=== PATIENT | female | born 1930 | race Caucasian/White ===

== ENCOUNTER 2016-09-09 16:27 | Inpatient (IN) | payer OTHER ==
[~2016-09-09] VITALS: Ht 152.4 cm; Wt 57.9 kg
[~2016-09-09 16:27] MED LIST: FISH OIL PO; GLUC100015 PO; OMEP40CA6 PO; VITAMINS PO
[2016-09-09 16:37] VITALS: BP 126/56; PULSE 64; RESP 16
[2016-09-09 16:56] VITALS: Ht 152.4 cm; Wt 57.9 kg
[2016-09-09] MEDS ORDERED: METOCLOPRAMIDE 10 MG INJ IV PRN (19:00)
[2016-09-09] MEDS ORDERED: BISACODYL 10 MG SUPP PR PRN (19:00)
[2016-09-09] MEDS ORDERED: MAGNESIUM HYDROXIDE 30ML CUP PO PRN (19:00)
[2016-09-09] MEDS ORDERED: LACTULOSE 30ML CUP PO PRN (19:00)
[2016-09-09] MEDS ORDERED: ONDANSETRON 4 MG INJ IV PRN (20:00)
[2016-09-09] MEDS ORDERED: traMADol 50 MG TAB PO PRN (20:00)
[2016-09-09] MEDS ORDERED: ACETAMINOPHEN 500 MG TAB PO PRN (20:00)
[2016-09-09] MEDS ORDERED: CARBOXYMETHYLCELLULOSE 0.5% 0.1 ML OPH BOTH EYES PRN (20:00)
[2016-09-09] MEDS ORDERED: NALOXONE (0.4 MG/ML) INJ IV PRN (20:00)
[2016-09-09] MEDS ORDERED: HYDROCODONE/APAP (10/325) TAB PO PRN ×2 (20:00)
[2016-09-09 20:03] VITALS: BP 115/59; RESP 18
[2016-09-09] MEDS ORDERED: GLUCOSE GEL 15 GRAM TUBE PO PRN ×2 (20:30)
[2016-09-09] MEDS ORDERED: GLUCOSE GEL 15 GRAM TUBE BUCCAL PRN (20:30)
[2016-09-09] MEDS ORDERED: DEXTROSE 50% 50 ML SYRINGE IV PRN ×2 (20:30)
[2016-09-09] MEDS ORDERED: GLUCAGON 1 MG INJ IM PRN (20:30)
[2016-09-09] MEDS: SENNA TAB PO SCH (21:00)
[2016-09-09] MEDS: Insulin NOVOLOG SS MODERATE Algorithm (SS with meals and bedtime) SC SCH (21:00)
[2016-09-09] MEDS: DEXAMETHASONE 2 MG TAB PO SCH (21:06)
[2016-09-09] MEDS: DOCUSATE SODIUM 100 MG CAP PO SCH (21:06)
[2016-09-09] MEDS: FERROUS SULFATE (EC) 325 MG TAB PO SCH (21:07)
[2016-09-09 21:29] LABS: ADD UMIC YES; UR ASCORBIC ACID NEGATIVE (NEGATIVE); UR BACTERIA FEW /HPF (NONE SEEN); UR BILIRUBIN (Dip) NEGATIVE (NEGATIVE); UR BLOOD (Dip) 1+ mg/dL (NEGATIVE); UR CLARITY CLEAR (CLEAR); UR COLOR STRAW (YELLOW); UR GLUCOSE (Dip) NEGATIVE (NEGATIVE); UR KETONES (Dip) NEGATIVE (NEGATIVE); UR LEUKOCYTE ESTERASE (Dip) NEGATIVE Leu/ul (NEGATIVE); UR NITRITE (Dip) NEGATIVE (NEGATIVE); UR RBC 0 /HPF (0-5); UR SPECIFIC GRAVITY (Dip) 1.004 (1.003-1.030); UR TOTAL PROTEIN (Dip) NEGATIVE (NEGATIVE); UR UROBILINOGEN (Dip) NEGATIVE (NEGATIVE)
[2016-09-10] MEDS: PANTOPRAZOLE (EC) 40 MG TAB PO SCH (05:40)
[2016-09-10 07:29] LABS: ADD SCAN DIFF NO
[2016-09-10 07:32] LABS: BASOPHILS % 0.1 % (0.0-2.0); EOSINOPHILS # 0.1 10^3/ul (0.0-0.5); EOSINOPHILS % 0.5 % (0.0-7.0); HEMATOCRIT 38.2 % (37.0-47.0); HEMOGLOBIN 12.5 g/dl (12.0-16.0); LYMPHOCYTES # 3.8 10^3/ul (0.8-2.9); LYMPHOCYTES % 25.9 % (15.0-51.0); MEAN CORPUSCULAR HEMOGLOBIN 28.8 pg (29.0-33.0); MEAN CORPUSCULAR HGB CONC 32.7 g/dl (32.0-37.0); MEAN PLATELET VOLUME 10.9 fl (7.4-10.4); MONOCYTE # 1.1 10^3/ul (0.3-0.9); MONOCYTES % 7.5 % (0.0-11.0); NEUTROPHIL # 9.4 10^3/ul (1.6-7.5); NEUTROPHILS % 63.9 % (39.0-77.0); PLATELET COUNT 309 10^3/UL (140-415); RED BLOOD COUNT 4.34 10^6/ul (4.20-5.40); RED CELL DISTRIBUTION WIDTH 15.3 % (11.5-14.5); WHITE BLOOD COUNT 14.6 10^3/ul (4.8-10.8)
[2016-09-10] MEDS: Insulin NOVOLOG SS MODERATE Algorithm (SS with meals and bedtime) SC SCH ×4 (07:35→20:58)
[2016-09-10 07:49] LABS: ALBUMIN 3.9 g/dl (3.3-4.9); ALBUMIN/GLOBULIN RATIO 1.44; BILIRUBIN,INDIRECT 0.3 mg/dl (0-1.1); BILIRUBIN,TOTAL 0.3 mg/dl (0.2-1.3); CALCIUM 8.7 mg/dl (8.4-10.2); CREATININE 0.82 mg/dl (0.44-1.00); POTASSIUM 4.3 mmol/L (3.5-5.1); TOTAL PROTEIN 6.6 g/dl (6.1-8.1)
[2016-09-10] MEDS: MULTIVITAMINS THERAPEUTIC TAB PO SCH (08:12)
[2016-09-10] MEDS: DEXAMETHASONE 2 MG TAB PO SCH ×2 (08:12→17:30)
[2016-09-10] MEDS: DOCUSATE SODIUM 100 MG CAP PO SCH ×2 (08:12→20:50)
[2016-09-10] MEDS: FERROUS SULFATE (EC) 325 MG TAB PO SCH ×3 (08:12→20:50)
--- NOTE | 2016-09-10 12:20 | CONS ---
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 Hyperlipidemia 2. Diabetes Mellitus 3. Left knee DJD 4. Impairments in self-care, mobility and mild cognition. PLAN: The patient has been admitted for comprehensive interdisciplinary acute rehab and is anticipated to tolerate 3 hours of daily therapy in divided doses for at least 5/7 days a week. The treatment plan will include: 1. Physical therapy to focus on bed mobility, transfers, and household ambulation with the goal of having the patient reach a standby assist at the wheelchair level, minimal assist for ambulation. 2. Occupational therapy to focus on hygiene, grooming, dressing, bathing, and toileting activities with the goal of having the patient reach a standby assist level at the wheelchair level. 3. Speech therapy for full cognitive assessment and retraining with the goal of having the patient return to baseline cognition. 4. Rehabilitation nursing for carryover of therapeutic interventions, the goal of continent of bowel and bladder, the goal of pain adequately managed on oral medications. ESTIMATED LENGTH OF STAY: 14 days. DISPOSITION GOAL: Home. Rehabilitation Barrier: Weakness Intervention for barrier: Interdisciplinary rehab care I acknowledge that I performed a full physical examination on this patient within 24 hours of admission to the rehabilitation unit and believe the patient is a good candidate for comprehensive interdisciplinary rehab care and is anticipated to make reasonable goals in a reasonable period of time as outlined above. Consultation Date/Type/Reason Admit Date/Time Sep 09, 2016 at 16:27 Reason for Consultation rehabilitation Post Admission Physician Evaluation Hx of Present Illness Patient is a pleasant 86-year-old right-handed feet with been noting right- sided weakness and worsening self-care and mobility. She presented to the emergency room where an MRI of the brain did reveal a 3.9 cm left frontal mass consistent with a meningioma. Patient was evaluated by neurosurgery and did undergo a craniotomy with mass excision. Patient's postoperative course was notable for mechanical ventilator support. Patient was successfully weaned. She noted to have significant impairments in self-care mobility as compared to baseline and has been cleared to transfer to the rehabilitation unit for comprehensive ointerdisciplinary rehab care. Constitutional: No chills, No diaphoresis, No disoriented, No febrile, No improved, No no complaints, No other, No poor po, No requiring IVF, No requiring O2 Eyes: other (Left eye blind) ENT: No bleeding, No congestion, No discharge, No dysphagia, No no complaints, No other, No pain, No sore throat Respiratory: No cough, No no complaints, No other, No pain, No pleuritic pain, No shortness of breath, No sputum, No wheezing Cardiovascular: No chest pain, No edema, No lightheadedness, No no complaints, No orthopenea, No other, No palpitations, No paroxysmal nocturnal dyspnea Gastrointestinal: No blood, No constipation, No decreased appetite, No diarrhea , No flatus, No nausea, No no complaints, No other, No pain, No passing stool, No vomiting Genitourinary: No bleeding, No discharge, No dysuria, No flank pain, No hematuria, No no complaints, No other Skin: No bruising, No erythema, No laceration, No no complaints, No other, No pruritis, No rash, No skin lesions Endocrine: other (elevated blood sugars) Lymphatic: No adenopathy, No lymphadema, No no complaints, No other, No tender nodes Psychological: No anxiety, No confusion, No depression, No nl mood/affect, No no complaints, No other, No suicidal Past Medical History Functional History: Prior to admission patient was independent in self care and mobility Current Functional Status: Patient requires max assist for self care and mobility I have reviewed the preadmission screen , and patient's functional status is consistent with the preadmission screen. Medical History: diabetes, high cholesterol, other (cataract; Left knee DJD) Past Surgical History Past Surgical Hx: other (cataract surgery) Social History Smoking Status: Never smoker Other Social History Patient has good family support Exam/Review of Systems Vital Signs Vitals Vital Signs Date Time Temp Pulse Resp B/P Pulse Ox O2 Delivery O2 Flow Rate FiO2 09/09/16 20:03 98.7 64 18 115/59 93 09/09/16 16:37 Room Air Intake and Output 09/09/16 09/09/16 09/10/16 14:59 22:59 06:59 Intake Total 600 ml 750 ml Balance 600 ml 750 ml Exam Constitutional: alert, oriented Psych: confusion Head: other (Patient with notable craniotomy scar clean dry and intact) Eyes: No EOMI, No PERRL, No fundi, disc, No icteric, No nl conjunctiva, No nl lids, No nl sclera, No other ENMT: No intubated, No mucosa pink and moist, No nl external ears & nose, No nl lips & teeth, No nl nasal mucosa & septum, No other, No tympanic membranes Neck: No bruits, No jvd, No masses, No non-tender, No nuchal rigidity, No other , No supple, No thyromegaly Respiratory: No clear to auscultation, No congested cough, No crackles/rales, No diminished breath sounds, No intercostal retraction, No labored breathing, No normal air movement, No other, No respirations, No tactile fremitus, No wheezing Cardiovascular: No S3, No S4, No bruits, No diastolic murmur, No edema, No gallop, No irregular rhythm, No jugular venous distention (JVD), No murmurs/ extra sounds, No nl pulses, No other, No regular rate and rhythm, No rub, No systolic murmur Gastrointestinal: No ascites, No bowel sounds, No distended, No firm, No hepatomegaly, No mass, No nl liver, spleen, No non-tender, No other, No rebound or guarding, No soft, No splenomegaly, No surgical scars, No tender Genitourinary - Female: No CMT, No CVA tenderness, No nl adnexae, No nl external genitalia, No other, No uterus Extremities: No calf tenderness, No clubbing, No cyanosis, No edema, No normal pulses, No other, No palpable cord, No pitting pedal edema, No tenderness Neurological: other (Patient awake and alert and oriented to person and hospital she will follow simple one-step commands, she demonstrates good strength in the left upper and lower, antigravity strength in the right upper and lower) Skin: No diaphoresis, No ecchymosis, No laceration, No nl turgor, No other, No puncture, No rash or lesions Results Result Diagram: 09/10/16 0615 09/10/16 0615 Results 24 hrs Laboratory Tests Test 09/09/16 18:15 09/09/16 21:04 09/10/16 06:15 09/10/16 07:59 Urine Color STRAW Urine Clarity CLEAR Urine pH 7.0 Urine Specific [place] 1.004 Urine Ketones NEGATIVE Urine Nitrite NEGATIVE Urine Bilirubin NEGATIVE Urine Urobilinogen NEGATIVE Urine Leukocyte Esterase NEGATIVE Urine Microscopic RBC 0 Urine Microscopic WBC 1 Urine Bacteria FEW A Urine Hemoglobin 1+ H Urine Glucose NEGATIVE Urine Total Protein NEGATIVE Bedside Glucose 155 99 White Blood Count 14.6 H Red Blood Count 4.34 Hemoglobin 12.5 Hematocrit 38.2 Mean Corpuscular Volume 88.0 Mean Corpuscular Hemoglobin 28.8 L Mean Corpuscular Hemoglobin Concent 32.7 Red Cell Distribution Width 15.3 H Platelet Count 309 Mean Platelet Volume 10.9 H Neutrophils % 63.9 Lymphocytes % 25.9 Monocytes % 7.5 Eosinophils % 0.5 Basophils % 0.1 Nucleated Red Blood Cells % 0.0 Neutrophils # 9.4 H Lymphocytes # 3.8 H Monocytes # 1.1 H Eosinophils # 0.1 Basophils # 0.0 Nucleated Red Blood Cells # 0.0 Sodium Level 137 Potassium Level 4.3 Chloride Level 101 Carbon Dioxide Level 31 Anion Gap 9 Blood Urea Nitrogen 21 H Creatinine 0.82 Glucose Level 111 Calcium Level 8.7 Total Bilirubin 0.3 Direct Bilirubin 0.00 Indirect Bilirubin 0.3 Aspartate Amino Transf (AST/SGOT) 39 Alanine Aminotransferase (ALT/SGPT) 74 H Alkaline Phosphatase 76 Total Protein 6.6 Albumin 3.9 Globulin 2.70 Albumin/Globulin Ratio 1.44 Medications Medications Current Medications Docusate Sodium (Colace) 100 mg BID PO Last administered on 09/10/16t 08:12; Admin Dose 100 MG; Start 09/09/16 at 21:00 Senna (Senokot) 1 tab HS PO ; Start 09/09/16 at 21:00 Acetaminophen (Tylenol Tab) 650 mg Q4H PRN PO PRN; Start 09/09/16 at 19:00 Bisacodyl (Dulcolax Supp) 10 mg DAILY PRN [place] CONSTIPATION; Start 09/09/16 at 19: 00 Magnesium Hydroxide (Milk Of Mag) 30 ml BID PRN PO CONSTIPATION; Start 09/09/16 at 19:00 Lactulose (Enulose) 20 gm DAILY PRN PO CONSTIPATION; Start 09/09/16 at 19:00 Metoclopramide HCl (Reglan) 10 mg Q6H PRN IV NAUSEA; Start 09/09/16 at 19:00 Multivitamins Therapeutic (Theragran) 1 tab DAILY PO Last administered on 08:12; Admin Dose 1 TAB; Start 09/10/16 at 09:00 Naloxone HCl (Narcan) 0.2 mg PRN PRN IV DECREASED REPIRATORY RATE; Start at 20:00 Eye Lubricant (Refresh Plus) 1 drop TID PRN BOTH EYES DRY EYES; Start 09/09/16 at 20:00 Ondansetron HCl (Zofran Inj) 2 mg Q6H PRN IV NAUSEA AND/OR VOMITING; Start 09/09 at 20:00 Pantoprazole (Protonix Tab) 40 mg DAILY@06 PO Last administered on 09/10/16 05 :40; Admin Dose 40 MG; Start 09/10/16 at 06:00 Tramadol HCl (Ultram) 50 mg Q4H PRN PO PAIN; Start 09/09/16 at 20:00 Acetaminophen (Tylenol Tab) 500 mg Q4H PRN PO PAIN; Start 09/09/16 at 20:00 Acetaminophen/ Hydrocodone Bitart ([place] (10/325)) 1 tab Q4H PRN PO PAIN; Start 09/09/16 at 20:00 Acetaminophen/ Hydrocodone Bitart ([place] (10/325)) 2 tab Q4H PRN PO PAIN; Start 09/09/16 at 20:00 Ferrous Sulfate (Ferrous Sulfate (Ec)) 325 mg TID PO Last administered on 08:12; Admin Dose 325 MG; Start 09/09/16 at 21:00 Miscellaneous Information 1 ea NOTE XX ; Start 09/09/16 at 20:30 Glucose (Glutose) 15 gm Q15M PRN PO DECREASED GLUCOSE; Start 09/09/16 at 20:30 Glucose (Glutose) 22.5 gm Q15M PRN PO DECREASED GLUCOSE; Start 09/09/16 at 20:30 Dextrose (D50w Syringe) 25 ml Q15M PRN IV DECREASED GLUCOSE; Start 09/09/16 at 20:30 Dextrose (D50w Syringe) 50 ml Q15M PRN IV DECREASED GLUCOSE; Start 09/09/16 at 20:30 Glucagon (Glucagen) 1 mg Q15M PRN IM DECREASED GLUCOSE; Start 09/09/16 at 20:30 Glucose (Glutose) 15 gm Q15M PRN BUCCAL DECREASED GLUCOSE; Start 09/09/16 at 20: 30 Atorvastatin Calcium (Lipitor) 40 mg HS PO ; Start 09/10/16 at 21:00 JESSICA PATTERSON MD Sep 10, 2016 12:19
--- NOTE | 2016-09-10 12:27 | HP ---
Date/Time of Note Date/Time of Note DATE: 09/10/16 TIME: 12:04 Assessment/Plan VTE Prophylaxis VTE Prophylaxis Intervention: SCD's Lines/Catheters Urinary Cath still in place: No Assessment/Plan Assessment/Plan - Left frontoparietal meningioma, status post resection. Continue Decadron - Right lower extremities weakness secondary to meningioma, continue PT, OT. - Hyperlipidemia, continue Lipitor. - Hyperglycemia most likely secondary to steroids, continue NovoLog per mild algorithm sliding scale. Further recommendations based on clinical course. Plan of care discussed with Dr. Singh. HPI/ROS Admit Date/Time Admit Date/Time Sep 09, 2016 at 16:27 Hx of Present Illness The patient is 86-year-old female who developed progressing weakness in the right upper and lower extremities patient was evaluated on was diagnosed with left frontoparietal meningioma. The patient underwent a left frontoparietal craniotomy to al with resection of meningioma at [facility] on September [address] Zhong. Patient was placed on the mechanical ventilator and subsequently weaned off. Patient demonstrated significant decline in functional independence. Patient is admitted to acute rehabilitation for further management. 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, left eye cataract status post surgery) Past Surgical History Status post meningioma resection, that is post cataract surgery Family History Significant Family History: no pertinent family hx Social History Alcohol Use: none Smoking Status: Never smoker Drug Use: none Exam/Review of Systems Vital Signs Vitals Vital Signs Date Time Temp Pulse Resp B/P Pulse Ox O2 Delivery O2 Flow Rate FiO2 09/09/16 20:03 98.7 64 18 115/59 93 09/09/16 16:37 Room Air Intake and Output 09/09/16 09/09/16 09/10/16 15:00 23:00 07:00 Intake Total 600 ml 750 ml Balance 600 ml 750 ml Exam Constitutional: alert, oriented Psych: no complaints Head: other (Status post surgery with intact incision) Neck: non-tender, supple Respiratory: normal air movement Cardiovascular: nl pulses Gastrointestinal: non-tender, soft Musculoskeletal: other (Right upper and lower extremities weakness) Extremities: normal pulses Neurological: nl mental status Skin: nl turgor Labs Result Diagram: 09/10/1661409/10/16614 Medications Medications Current Medications Docusate Sodium (Colace) 100 mg BID PO Last administered on 09/10/16 08:12; Admin Dose 100 MG; Start 09/09/16 at 21:00 Senna (Senokot) 1 tab HS PO ; Start 09/09/16 at 21:00 Acetaminophen (Tylenol Tab) 650 mg Q4H PRN PO PRN; Start 09/09/16 at 19:00 Bisacodyl (Dulcolax Supp) 10 mg DAILY PRN [place] CONSTIPATION; Start 09/09/16 at 19: 00 Magnesium Hydroxide (Milk Of Mag) 30 ml BID PRN PO CONSTIPATION; Start 09/09/16 at 19:00 Lactulose (Enulose) 20 gm DAILY PRN PO CONSTIPATION; Start 09/09/16 at 19:00 Metoclopramide HCl (Reglan) 10 mg Q6H PRN IV NAUSEA; Start 09/09/16 at 19:00 Multivitamins Therapeutic (Theragran) 1 tab DAILY PO Last administered on 08:12; Admin Dose 1 TAB; Start 09/10/16 at 09:00 Naloxone HCl (Narcan) 0.2 mg PRN PRN IV DECREASED REPIRATORY RATE; Start at 20:00 Eye Lubricant (Refresh Plus) 1 drop TID PRN BOTH EYES DRY EYES; Start 09/09/16 at 20:00 Ondansetron HCl (Zofran Inj) 2 mg Q6H PRN IV NAUSEA AND/OR VOMITING; Start 09/09 at 20:00 Pantoprazole (Protonix Tab) 40 mg DAILY@06 PO Last administered on 09/10/16 05 :40; Admin Dose 40 MG; Start 09/10/16 at 06:00 Tramadol HCl (Ultram) 50 mg Q4H PRN PO PAIN; Start 09/09/16 at 20:00 Acetaminophen (Tylenol Tab) 500 mg Q4H PRN PO PAIN; Start 09/09/16 at 20:00 Acetaminophen/ Hydrocodone Bitart ([place] (10/325)) 1 tab Q4H PRN PO PAIN; Start 09/09/16 at 20:00 Acetaminophen/ Hydrocodone Bitart ([place] ()) 2 tab Q4H PRN PO PAIN; Start 09/09/16 at 20:00 Ferrous Sulfate (Ferrous Sulfate (Ec)) 325 mg TID PO Last administered on t 08:12; Admin Dose 325 MG; Start 09/09/16 at 21:00 Miscellaneous Information 1 ea NOTE XX ; Start 09/09/16 at 20:30 Glucose (Glutose) 15 gm Q15M PRN PO DECREASED GLUCOSE; Start 09/09/16 at 20:30 Glucose (Glutose) 22.5 gm Q15M PRN PO DECREASED GLUCOSE; Start 09/09/16 at 20:30 Dextrose (D50w Syringe) 25 ml Q15M PRN IV DECREASED GLUCOSE; Start 09/09/16 at 20:30 Dextrose (D50w Syringe) 50 ml Q15M PRN IV DECREASED GLUCOSE; Start 09/09/16 at 20:30 Glucagon (Glucagen) 1 mg Q15M PRN IM DECREASED GLUCOSE; Start 09/09/16 at 20:30 Glucose (Glutose) 15 gm Q15M PRN BUCCAL DECREASED GLUCOSE; Start 09/09/16 at 20: 30 Atorvastatin Calcium (Lipitor) 40 mg HS PO ; Start 09/10/16 at 21:00 JOSÉ PEREZ Sep 10, 2016 12:14
[2016-09-10 20:00] VITALS: BP 113/63; RESP 18
[2016-09-10] MEDS: ATORVASTATIN 40 MG TAB PO SCH (20:50)
[2016-09-10] MEDS: SENNA TAB PO SCH (20:50)
[2016-09-11] MEDS: PANTOPRAZOLE (EC) 40 MG TAB PO SCH (06:34)
[2016-09-11] MEDS: Insulin NOVOLOG SS MODERATE Algorithm (SS with meals and bedtime) SC SCH ×4 (07:35→20:56)
[2016-09-11 08:00] VITALS: BP 107/55; RESP 18
[2016-09-11] MEDS: DOCUSATE SODIUM 100 MG CAP PO SCH ×2 (09:28→20:56)
[2016-09-11] MEDS: MULTIVITAMINS THERAPEUTIC TAB PO SCH (09:28)
[2016-09-11] MEDS: FERROUS SULFATE (EC) 325 MG TAB PO SCH ×3 (09:28→20:56)
[2016-09-11] MEDS: DEXAMETHASONE 2 MG TAB PO SCH (09:28)
--- NOTE | 2016-09-11 13:25 | CONS ---
Date/Time of Note Date/Time of Note DATE: 09/11/16 TIME: 13:23 Consult Date/Type/Reason Admit Date/Time Sep 09, 2016 at 16:27 Initial Consult Date Subjective Patient motivated for all activity Objective Lungs clear anteriorly Abdomen soft Moderate to maximal assist for mobility Vital Signs Date Time Temp Pulse Resp B/P Pulse Ox O2 Delivery O2 Flow Rate FiO2 09/11/16 08:00 97.9 56 18 107/55 94 09/09/16 16:37 Room Air Intake and Output 09/10/16 09/10/16 09/11/16 15:00 23:00 07:00 Intake Total 250 ml Output Total 950 ml Balance -700 ml Results/Medications Result Diagram: 09/10/1615 09/10/1615 Results 24 hrs Laboratory Tests Test 09/10/16 17:05 09/10/16 20:46 09/11/16 02:13 09/11/16 07:57 Bedside Glucose 139 204 129 97 Test 09/11/16 12:17 Bedside Glucose 136 Medications Current Medications Docusate Sodium (Colace) 100 mg BID PO Last administered on 09/11/16 09:28; Admin Dose 100 MG; Start 09/09/16 at 21:00 Senna (Senokot) 1 tab HS PO Last administered on 09/10/16 20:50; Admin Dose 1 TAB; Start 09/09/16 at 21:00 Acetaminophen (Tylenol Tab) 650 mg Q4H PRN PO PRN; Start 09/09/16 at 19:00 Bisacodyl (Dulcolax Supp) 10 mg DAILY PRN [place] CONSTIPATION; Start 09/09/16 at 19: 00 Magnesium Hydroxide (Milk Of Mag) 30 ml BID PRN PO CONSTIPATION; Start 09/09/16 at 19:00 Lactulose (Enulose) 20 gm DAILY PRN PO CONSTIPATION; Start 09/09/16 at 19:00 Metoclopramide HCl (Reglan) 10 mg Q6H PRN IV NAUSEA; Start 09/09/16 at 19:00 Multivitamins Therapeutic (Theragran) 1 tab DAILY PO Last administered on 09:28; Admin Dose 1 TAB; Start 09/10/16 at 09:00 Naloxone HCl (Narcan) 0.2 mg PRN PRN IV DECREASED REPIRATORY RATE; Start at 20:00 Eye Lubricant (Refresh Plus) 1 drop TID PRN BOTH EYES DRY EYES; Start 09/09/16 at 20:00 Ondansetron HCl (Zofran Inj) 2 mg Q6H PRN IV NAUSEA AND/OR VOMITING; Start 09/09 at 20:00 Pantoprazole (Protonix Tab) 40 mg DAILY@06 PO Last administered on 09/11/16 06 :34; Admin Dose 40 MG; Start 09/10/16 at 06:00 Tramadol HCl (Ultram) 50 mg Q4H PRN PO PAIN; Start 09/09/16 at 20:00 Acetaminophen (Tylenol Tab) 500 mg Q4H PRN PO PAIN; Start 09/09/16 at 20:00 Acetaminophen/ Hydrocodone Bitart ([place] (10/325)) 1 tab Q4H PRN PO PAIN; Start 09/09/16 at 20:00 Acetaminophen/ Hydrocodone Bitart ([place] (10/325)) 2 tab Q4H PRN PO PAIN; Start 09/09/16 at 20:00 Ferrous Sulfate (Ferrous Sulfate (Ec)) 325 mg TID PO Last administered on 12:59; Admin Dose 325 MG; Start 09/09/16 at 21:00 Miscellaneous Information 1 ea NOTE XX ; Start 09/09/16 at 20:30 Glucose (Glutose) 15 gm Q15M PRN PO DECREASED GLUCOSE; Start 09/09/16 at 20:30 Glucose (Glutose) 22.5 gm Q15M PRN PO DECREASED GLUCOSE; Start 09/09/16 at 20:30 Dextrose (D50w Syringe) 25 ml Q15M PRN IV DECREASED GLUCOSE; Start 09/09/16 at 20:30 Dextrose (D50w Syringe) 50 ml Q15M PRN IV DECREASED GLUCOSE; Start 09/09/16 at 20:30 Glucagon (Glucagen) 1 mg Q15M PRN IM DECREASED GLUCOSE; Start 09/09/16 at 20:30 Glucose (Glutose) 15 gm Q15M PRN BUCCAL DECREASED GLUCOSE; Start 09/09/16 at 20: 30 Atorvastatin Calcium (Lipitor) 40 mg HS PO Last administered on 09/10/16 20:50 ; Admin Dose 40 MG; Start 09/10/16 at 21:00 Assessment/Plan Additional Assessment/Plan Rehabilitation- 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 JESSICA PATTERSON MD Sep 11, 2016 13:25
--- NOTE | 2016-09-11 17:21 | PN ---
Date/Time of Note Date/Time of Note DATE: 09/11/16 TIME: 17:19 Assessment/Plan VTE Prophylaxis VTE Prophylaxis Intervention: SCD's Lines/Catheters Urinary Cath still in place: No Assessment/Plan Chief Complaint/Hosp Course Assessment/Plan - Left frontoparietal meningioma, status post resection. Continue Decadron - Right lower extremities weakness secondary to meningioma, continue PT, OT. - Hyperlipidemia, continue Lipitor. - Hyperglycemia most likely secondary to steroids, continue NovoLog per mild algorithm sliding scale. Further recommendations based on clinical course. Plan of care discussed with Dr. Singh. Problems: Exam/Review of Systems Vital Signs Vitals Vital Signs Date Time Temp Pulse Resp B/P Pulse Ox O2 Delivery O2 Flow Rate FiO2 09/11/16 08:00 97.9 56 18 107/55 94 09/09/16 16:37 Room Air Intake and Output 09/10/16 09/10/16 09/11/16 15:00 23:00 07:00 Intake Total 250 ml Output Total 950 ml Balance -700 ml Exam Constitutional: alert, oriented Psych: no complaints Head: other (Status post surgery with intact incision) Neck: non-tender, supple Respiratory: normal air movement Cardiovascular: nl pulses Gastrointestinal: non-tender, soft Musculoskeletal: other (Right upper and lower extremities weakness) Extremities: normal pulses Neurological: nl mental status Skin: nl turgor Results Result Diagram: 09/10/1661409/10/1615 Results 24 hrs Laboratory Tests Test 09/10/16 20:46 09/11/16 02:13 09/11/16 07:57 09/11/16 12:17 Bedside Glucose 204 129 97 136 Medications Medications Current Medications Docusate Sodium (Colace) 100 mg BID PO Last administered on 09/11/16 09:28; Admin Dose 100 MG; Start 09/09/16 at 21:00 Senna (Senokot) 1 tab HS PO Last administered on 09/10/16 20:50; Admin Dose 1 TAB; Start 09/09/16 at 21:00 Acetaminophen (Tylenol Tab) 650 mg Q4H PRN PO PRN; Start 09/09/16 at 19:00 Bisacodyl (Dulcolax Supp) 10 mg DAILY PRN [place] CONSTIPATION; Start 09/09/16 at 19: 00 Magnesium Hydroxide (Milk Of Mag) 30 ml BID PRN PO CONSTIPATION; Start 09/09/16 at 19:00 Lactulose (Enulose) 20 gm DAILY PRN PO CONSTIPATION; Start 09/09/16 at 19:00 Metoclopramide HCl (Reglan) 10 mg Q6H PRN IV NAUSEA; Start 09/09/16 at 19:00 Multivitamins Therapeutic (Theragran) 1 tab DAILY PO Last administered on 09:28; Admin Dose 1 TAB; Start 09/10/16 at 09:00 Naloxone HCl (Narcan) 0.2 mg PRN PRN IV DECREASED REPIRATORY RATE; Start at 20:00 Eye Lubricant (Refresh Plus) 1 drop TID PRN BOTH EYES DRY EYES; Start 09/09/16 at 20:00 Ondansetron HCl (Zofran Inj) 2 mg Q6H PRN IV NAUSEA AND/OR VOMITING; Start 09/09 at 20:00 Pantoprazole (Protonix Tab) 40 mg DAILY@06 PO Last administered on 09/11/16 06 :34; Admin Dose 40 MG; Start 09/10/16 at 06:00 Tramadol HCl (Ultram) 50 mg Q4H PRN PO PAIN; Start 09/09/16 at 20:00 Acetaminophen (Tylenol Tab) 500 mg Q4H PRN PO PAIN; Start 09/09/16 at 20:00 Acetaminophen/ Hydrocodone Bitart ([place] (10/325)) 1 tab Q4H PRN PO PAIN; Start 09/09/16 at 20:00 Acetaminophen/ Hydrocodone Bitart ([place] (10/325)) 2 tab Q4H PRN PO PAIN; Start 09/09/16 at 20:00 Ferrous Sulfate (Ferrous Sulfate (Ec)) 325 mg TID PO Last administered on 12:59; Admin Dose 325 MG; Start 09/09/16 at 21:00 Miscellaneous Information 1 ea NOTE XX ; Start 09/09/16 at 20:30 Glucose (Glutose) 15 gm Q15M PRN PO DECREASED GLUCOSE; Start 09/09/16 at 20:30 Glucose (Glutose) 22.5 gm Q15M PRN PO DECREASED GLUCOSE; Start 09/09/16 at 20:30 Dextrose (D50w Syringe) 25 ml Q15M PRN IV DECREASED GLUCOSE; Start 09/09/16 at 20:30 Dextrose (D50w Syringe) 50 ml Q15M PRN IV DECREASED GLUCOSE; Start 09/09/16 at 20:30 Glucagon (Glucagen) 1 mg Q15M PRN IM DECREASED GLUCOSE; Start 09/09/16 at 20:30 Glucose (Glutose) 15 gm Q15M PRN BUCCAL DECREASED GLUCOSE; Start 09/09/16 at 20: 30 Atorvastatin Calcium (Lipitor) 40 mg HS PO Last administered on 09/10/16t 20:50 ; Admin Dose 40 MG; Start 09/10/16 at 21:00 JOSÉ PEREZ Sep 11, 2016 17:21
[2016-09-11 20:00] VITALS: BP 111/59; RESP 18
[2016-09-11] MEDS: SENNA TAB PO SCH (20:56)
[2016-09-11] MEDS: ATORVASTATIN 40 MG TAB PO SCH (20:56)
[2016-09-12] MEDS: PANTOPRAZOLE (EC) 40 MG TAB PO SCH (06:43)
[2016-09-12] MEDS: DEXAMETHASONE 2 MG TAB PO SCH (07:35)
[2016-09-12] MEDS: Insulin NOVOLOG SS MODERATE Algorithm (SS with meals and bedtime) SC SCH ×4 (07:35→21:00)
[2016-09-12 07:45] VITALS: BP 98/54; RESP 18
[2016-09-12] MEDS: DOCUSATE SODIUM 100 MG CAP PO SCH ×2 (09:08→21:00)
[2016-09-12] MEDS: FERROUS SULFATE (EC) 325 MG TAB PO SCH ×3 (09:09→21:10)
[2016-09-12] MEDS: MULTIVITAMINS THERAPEUTIC TAB PO SCH (09:09)
--- NOTE | 2016-09-12 11:58 | CONS ---
Date/Time of Note Date/Time of Note DATE: 09/12/16 TIME: 11:58 Consult Date/Type/Reason Admit Date/Time Sep 09, 2016 at 16:27 Subjective Motivated Objective Lungs clear Moderate assist Vital Signs Date Time Temp Pulse Resp B/P Pulse Ox O2 Delivery O2 Flow Rate FiO2 09/12/16 07:45 97.9 63 18 98/54 94 09/09/16 16:37 Room Air Intake and Output 09/11/16 09/11/16 09/12/16 15:00 23:00 07:00 Intake Total 800 ml 880 ml Output Total 200 ml 650 ml Balance 600 ml 880 ml -650 ml Results/Medications Result Diagram: 09/10/16 0615 09/10/16 0615 Results 24 hrs Laboratory Tests Test 09/11/16 12:17 09/11/16 17:17 09/11/16 20:54 09/12/16 08:22 Bedside Glucose 136 124 125 90 Medications Current Medications Docusate Sodium (Colace) 100 mg BID PO Last administered on 09/12/16 09:08; Admin Dose 100 MG; Start 09/09/16 at 21:00 Senna (Senokot) 1 tab HS PO Last administered on 09/10/16 20:50; Admin Dose 1 TAB; Start 09/09/16 at 21:00 Acetaminophen (Tylenol Tab) 650 mg Q4H PRN PO PRN; Start 09/09/16 at 19:00 Bisacodyl (Dulcolax Supp) 10 mg DAILY PRN [place] CONSTIPATION; Start 09/09/16 at 19: 00 Magnesium Hydroxide (Milk Of Mag) 30 ml BID PRN PO CONSTIPATION; Start 09/09/16 at 19:00 Lactulose (Enulose) 20 gm DAILY PRN PO CONSTIPATION Last administered on 09:09; Admin Dose 20 GM; Start 09/09/16 at 19:00 Metoclopramide HCl (Reglan) 10 mg Q6H PRN IV NAUSEA; Start 09/09/16 at 19:00 Multivitamins Therapeutic (Theragran) 1 tab DAILY PO Last administered on 09:09; Admin Dose 1 TAB; Start 09/10/16 at 09:00 Naloxone HCl (Narcan) 0.2 mg PRN PRN IV DECREASED REPIRATORY RATE; Start at 20:00 Eye Lubricant (Refresh Plus) 1 drop TID PRN BOTH EYES DRY EYES; Start 09/09/16 at 20:00 Ondansetron HCl (Zofran Inj) 2 mg Q6H PRN IV NAUSEA AND/OR VOMITING; Start 09/09 at 20:00 Pantoprazole (Protonix Tab) 40 mg DAILY@06 PO Last administered on 09/12/16 06 :43; Admin Dose 40 MG; Start 09/10/16 at 06:00 Tramadol HCl (Ultram) 50 mg Q4H PRN PO PAIN; Start 09/09/16 at 20:00 Acetaminophen (Tylenol Tab) 500 mg Q4H PRN PO PAIN; Start 09/09/16 at 20:00 Acetaminophen/ Hydrocodone Bitart ([place] (10/325)) 1 tab Q4H PRN PO PAIN; Start 09/09/16 at 20:00 Acetaminophen/ Hydrocodone Bitart ([place] (10/325)) 2 tab Q4H PRN PO PAIN; Start 09/09/16 at 20:00 Ferrous Sulfate (Ferrous Sulfate (Ec)) 325 mg TID PO Last administered on 09:09; Admin Dose 325 MG; Start 09/09/16 at 21:00 Miscellaneous Information 1 ea NOTE XX ; Start 09/09/16 at 20:30 Glucose (Glutose) 15 gm Q15M PRN PO DECREASED GLUCOSE; Start 09/09/16 at 20:30 Glucose (Glutose) 22.5 gm Q15M PRN PO DECREASED GLUCOSE; Start 09/09/16 at 20:30 Dextrose (D50w Syringe) 25 ml Q15M PRN IV DECREASED GLUCOSE; Start 09/09/16 at 20:30 Dextrose (D50w Syringe) 50 ml Q15M PRN IV DECREASED GLUCOSE; Start 09/09/16 at 20:30 Glucagon (Glucagen) 1 mg Q15M PRN IM DECREASED GLUCOSE; Start 09/09/16 at 20:30 Glucose (Glutose) 15 gm Q15M PRN BUCCAL DECREASED GLUCOSE; Start 09/09/16 at 20: 30 Atorvastatin Calcium (Lipitor) 40 mg HS PO Last administered on 09/11/16 20:56 ; Admin Dose 40 MG; Start 09/10/16 at 21:00 Assessment/Plan Additional Assessment/Plan Rehabilitation- 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
--- NOTE | 2016-09-12 17:54 | PN ---
Date/Time of Note Date/Time of Note DATE: 09/12/16 TIME: 17:52 Assessment/Plan VTE Prophylaxis VTE Prophylaxis Intervention: SCD's Lines/Catheters Urinary Cath still in place: No Assessment/Plan Chief Complaint/Hosp Course Patient's continues to work with physical therapy and occupational therapy, per patient daughter significant improvement since surgery in the right upper extremity and lower extremities weakness. Continues to have right foot drop, able to ambulate using walker with PT. Assessment/Plan - Left frontoparietal meningioma, status post resection. Continue Decadron - Right lower extremities weakness secondary to meningioma, continue PT, OT. - Hyperlipidemia, continue Lipitor. - Hyperglycemia most likely secondary to steroids, continue NovoLog per mild algorithm sliding scale. Further recommendations based on clinical course. Plan of care discussed with Dr. Singh. Problems: Exam/Review of Systems Vital Signs Vitals Vital Signs Date Time Temp Pulse Resp B/P Pulse Ox O2 Delivery O2 Flow Rate FiO2 09/12/16 07:45 97.9 63 18 98/54 94 09/09/16 16:37 Room Air Intake and Output 09/11/16 09/11/16 09/12/16 15:00 23:00 07:00 Intake Total 800 ml 880 ml Output Total 200 ml 650 ml Balance 600 ml 880 ml -650 ml Exam Constitutional: alert, oriented Head: other (Status post surgery with intact incision) Respiratory: normal air movement Cardiovascular: nl pulses Gastrointestinal: non-tender, soft Musculoskeletal: other (Right upper and lower extremities weakness) Extremities: normal pulses Results Result Diagram: 09/10/16 0615 09/10/16 0615 Results 24 hrs Laboratory Tests Test 09/11/16 20:54 09/12/16 08:22 09/12/16 12:15 09/12/16 17:25 Bedside Glucose 125 90 99 116 Medications Medications Current Medications Docusate Sodium (Colace) 100 mg BID PO Last administered on 09/12/16 09:08; Admin Dose 100 MG; Start 09/09/16 at 21:00 Senna (Senokot) 1 tab HS PO Last administered on 09/10/16 20:50; Admin Dose 1 TAB; Start 09/09/16 at 21:00 Acetaminophen (Tylenol Tab) 650 mg Q4H PRN PO PRN; Start 09/09/16 at 19:00 Bisacodyl (Dulcolax Supp) 10 mg DAILY PRN [place] CONSTIPATION; Start 09/09/16 at 19: 00 Magnesium Hydroxide (Milk Of Mag) 30 ml BID PRN PO CONSTIPATION; Start 09/09/16 at 19:00 Lactulose (Enulose) 20 gm DAILY PRN PO CONSTIPATION Last administered on 09:09; Admin Dose 20 GM; Start 09/09/16 at 19:00 Metoclopramide HCl (Reglan) 10 mg Q6H PRN IV NAUSEA; Start 09/09/16 at 19:00 Multivitamins Therapeutic (Theragran) 1 tab DAILY PO Last administered on 09:09; Admin Dose 1 TAB; Start 09/10/16 at 09:00 Naloxone HCl (Narcan) 0.2 mg PRN PRN IV DECREASED REPIRATORY RATE; Start at 20:00 Ondansetron HCl (Zofran Inj) 2 mg Q6H PRN IV NAUSEA AND/OR VOMITING; Start 09/09 at 20:00 Pantoprazole (Protonix Tab) 40 mg DAILY@06 PO Last administered on 09/12/16 06 :43; Admin Dose 40 MG; Start 09/10/16 at 06:00 Tramadol HCl (Ultram) 50 mg Q4H PRN PO PAIN; Start 09/09/16 at 20:00 Acetaminophen (Tylenol Tab) 500 mg Q4H PRN PO PAIN; Start 09/09/16 at 20:00 Acetaminophen/ Hydrocodone Bitart ([place] (10/325)) 1 tab Q4H PRN PO PAIN; Start 09/09/16 at 20:00 Acetaminophen/ Hydrocodone Bitart ([place] (10/325)) 2 tab Q4H PRN PO PAIN; Start 09/09/16 at 20:00 Ferrous Sulfate (Ferrous Sulfate (Ec)) 325 mg TID PO Last administered on 13:45; Admin Dose 325 MG; Start 09/09/16 at 21:00 Miscellaneous Information 1 ea NOTE XX ; Start 09/09/16 at 20:30 Glucose (Glutose) 15 gm Q15M PRN PO DECREASED GLUCOSE; Start 09/09/16 at 20:30 Glucose (Glutose) 22.5 gm Q15M PRN PO DECREASED GLUCOSE; Start 09/09/16 at 20:30 Dextrose (D50w Syringe) 25 ml Q15M PRN IV DECREASED GLUCOSE; Start 09/09/16 at 20:30 Dextrose (D50w Syringe) 50 ml Q15M PRN IV DECREASED GLUCOSE; Start 09/09/16 at 20:30 Glucagon (Glucagen) 1 mg Q15M PRN IM DECREASED GLUCOSE; Start 09/09/16 at 20:30 Glucose (Glutose) 15 gm Q15M PRN BUCCAL DECREASED GLUCOSE; Start 09/09/16 at 20: 30 Atorvastatin Calcium (Lipitor) 40 mg HS PO Last administered on 09/11/16t 20:56 ; Admin Dose 40 MG; Start 09/10/16 at 21:00 Eye Lubricant (Refresh Plus) 1 drop TID BOTH EYES ; Start 09/12/16 at 21:00 JOSÉ PEREZ Sep 12, 2016 17:54
[2016-09-12] MEDS: SENNA TAB PO SCH (21:00)
[2016-09-12] MEDS: CARBOXYMETHYLCELLULOSE 0.5% 0.1 ML OPH BOTH EYES SCH (21:10)
[2016-09-12] MEDS: ATORVASTATIN 40 MG TAB PO SCH (21:10)
[2016-09-13] MEDS: PANTOPRAZOLE (EC) 40 MG TAB PO SCH (06:54)
[2016-09-13 07:30] VITALS: BP 115/57; RESP 18
[2016-09-13] MEDS: DEXAMETHASONE 1 MG TAB PO SCH (07:35)
[2016-09-13] MEDS: Insulin NOVOLOG SS MODERATE Algorithm (SS with meals and bedtime) SC SCH ×4 (07:35→20:30)
[2016-09-13] MEDS: DOCUSATE SODIUM 100 MG CAP PO SCH ×2 (09:00→20:30)
[2016-09-13] MEDS: CARBOXYMETHYLCELLULOSE 0.5% 0.1 ML OPH BOTH EYES SCH ×3 (09:16→20:30)
[2016-09-13] MEDS: MULTIVITAMINS THERAPEUTIC TAB PO SCH (09:16)
[2016-09-13] MEDS: FERROUS SULFATE (EC) 325 MG TAB PO SCH ×3 (09:16→20:30)
--- NOTE | 2016-09-13 12:10 | CONS ---
Date/Time of Note Date/Time of Note DATE: 09/13/16 TIME: 12:10 Consult Date/Type/Reason Admit Date/Time Sep 09, 2016 at 16:27 Subjective Patient comfortable comfortable Objective Lungs clear Moderate assist Vital Signs Date Time Temp Pulse Resp B/P Pulse Ox O2 Delivery O2 Flow Rate FiO2 09/12/16 07:45 97.9 63 18 98/54 94 09/09/16 16:37 Room Air Intake and Output 09/12/16 09/12/16 09/13/16 15:00 23:00 07:00 Intake Total 720 ml 360 ml 360 ml Output Total 750 ml Balance 720 ml 360 ml -390 ml Results/Medications Result Diagram: 09/10/1615 09/10/1615 Results 24 hrs Laboratory Tests Test 09/12/16 12:15 09/12/16 17:25 09/12/16 21:09 09/13/16 08:16 Bedside Glucose 99 116 120 92 Medications Current Medications Docusate Sodium (Colace) 100 mg BID PO Last administered on 09/12/16 09:08; Admin Dose 100 MG; Start 09/09/16 at 21:00 Senna (Senokot) 1 tab HS PO Last administered on 09/10/16 20:50; Admin Dose 1 TAB; Start 09/09/16 at 21:00 Acetaminophen (Tylenol Tab) 650 mg Q4H PRN PO PRN; Start 09/09/16 at 19:00 Bisacodyl (Dulcolax Supp) 10 mg DAILY PRN [place] CONSTIPATION; Start 09/09/16 at 19: 00 Magnesium Hydroxide (Milk Of Mag) 30 ml BID PRN PO CONSTIPATION; Start 09/09/16 at 19:00 Lactulose (Enulose) 20 gm DAILY PRN PO CONSTIPATION Last administered on 09:09; Admin Dose 20 GM; Start 09/09/16 at 19:00 Metoclopramide HCl (Reglan) 10 mg Q6H PRN IV NAUSEA; Start 09/09/16 at 19:00 Multivitamins Therapeutic (Theragran) 1 tab DAILY PO Last administered on 09:16; Admin Dose 1 TAB; Start 09/10/16 at 09:00 Naloxone HCl (Narcan) 0.2 mg PRN PRN IV DECREASED REPIRATORY RATE; Start at 20:00 Ondansetron HCl (Zofran Inj) 2 mg Q6H PRN IV NAUSEA AND/OR VOMITING; Start 09/09 at 20:00 Pantoprazole (Protonix Tab) 40 mg DAILY@06 PO Last administered on 09/13/16 06 :54; Admin Dose 40 MG; Start 09/10/16 at 06:00 Tramadol HCl (Ultram) 50 mg Q4H PRN PO PAIN; Start 09/09/16 at 20:00 Acetaminophen (Tylenol Tab) 500 mg Q4H PRN PO PAIN; Start 09/09/16 at 20:00 Acetaminophen/ Hydrocodone Bitart ([place] (10/325)) 1 tab Q4H PRN PO PAIN; Start 09/09/16 at 20:00 Acetaminophen/ Hydrocodone Bitart ([place] (10/325)) 2 tab Q4H PRN PO PAIN; Start 09/09/16 at 20:00 Ferrous Sulfate (Ferrous Sulfate (Ec)) 325 mg TID PO Last administered on 09:16; Admin Dose 325 MG; Start 09/09/16 at 21:00 Miscellaneous Information 1 ea NOTE XX ; Start 09/09/16 at 20:30 Glucose (Glutose) 15 gm Q15M PRN PO DECREASED GLUCOSE; Start 09/09/16 at 20:30 Glucose (Glutose) 22.5 gm Q15M PRN PO DECREASED GLUCOSE; Start 09/09/16 at 20:30 Dextrose (D50w Syringe) 25 ml Q15M PRN IV DECREASED GLUCOSE; Start 09/09/16 at 20:30 Dextrose (D50w Syringe) 50 ml Q15M PRN IV DECREASED GLUCOSE; Start 09/09/16 at 20:30 Glucagon (Glucagen) 1 mg Q15M PRN IM DECREASED GLUCOSE; Start 09/09/16 at 20:30 Glucose (Glutose) 15 gm Q15M PRN BUCCAL DECREASED GLUCOSE; Start 09/09/16 at 20: 30 Atorvastatin Calcium (Lipitor) 40 mg HS PO Last administered on 09/12/16 21:10 ; Admin Dose 40 MG; Start 09/10/16 at 21:00 Eye Lubricant (Refresh Plus) 1 drop TID BOTH EYES Last administered on 09:16; Admin Dose 1 DROP; Start 09/12/16 at 21:00 Assessment/Plan Additional Assessment/Plan Rehabilitation- 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
--- NOTE | 2016-09-13 16:52 | PN ---
Date/Time of Note Date/Time of Note DATE: 09/13/16 TIME: 16:47 Assessment/Plan VTE Prophylaxis VTE Prophylaxis Intervention: other Lines/Catheters Urinary Cath still in place: No Assessment/Plan Assessment/Plan - Bilateral buttock- open wounds - HSV -to r/o herpes- lab fu - wound care consult -Dietary cdonsult - Left frontoparietal meningioma, status post resection. Continue Decadron - Right lower extremities weakness secondary to meningioma, continue PT, OT. - Hyperlipidemia, continue Lipitor. - Hyperglycemia most likely secondary to steroids, continue NovoLog per mild algorithm sliding scale. Further recommendations based on clinical course. Plan of care discussed with Dr. Singh. Subjective 24 Hr Interval Summary Respiratory: no complaints Cardiovascular: no complaints Exam/Review of Systems Vital Signs Vitals Vital Signs Date Time Temp Pulse Resp B/P Pulse Ox O2 Delivery O2 Flow Rate FiO2 09/13/16 07:30 98.4 72 18 115/57 96 09/09/16 16:37 Room Air Intake and Output 09/12/16 09/12/16 09/13/16 15:00 23:00 07:00 Intake Total 720 ml 360 ml 360 ml Output Total 750 ml Balance 720 ml 360 ml -390 ml Exam Constitutional: alert Respiratory: clear to auscultation, normal air movement Cardiovascular: nl pulses, regular rate and rhythm Gastrointestinal: non-tender, soft Musculoskeletal: nl extremities to inspection Extremities: normal pulses Neurological: other Skin: rash or lesions (tracy buttocks) Results Result Diagram: 09/10/16 0615 09/10/16 0615 Results 24 hrs Laboratory Tests Test 09/12/16 17:25 09/12/16 21:09 09/13/16 08:16 09/13/16 12:08 Bedside Glucose 116 120 92 111 Medications Medications Current Medications Docusate Sodium (Colace) 100 mg BID PO Last administered on 09/12/16 09:08; Admin Dose 100 MG; Start 09/09/16 at 21:00 Senna (Senokot) 1 tab HS PO Last administered on 09/10/16 20:50; Admin Dose 1 TAB; Start 09/09/16 at 21:00 Acetaminophen (Tylenol Tab) 650 mg Q4H PRN PO PRN; Start 09/09/16 at 19:00 Bisacodyl (Dulcolax Supp) 10 mg DAILY PRN [place] CONSTIPATION; Start 09/09/16 at 19: 00 Magnesium Hydroxide (Milk Of Mag) 30 ml BID PRN PO CONSTIPATION; Start 09/09/16 at 19:00 Lactulose (Enulose) 20 gm DAILY PRN PO CONSTIPATION Last administered on 09:09; Admin Dose 20 GM; Start 09/09/16 at 19:00 Metoclopramide HCl (Reglan) 10 mg Q6H PRN IV NAUSEA; Start 09/09/16 at 19:00 Multivitamins Therapeutic (Theragran) 1 tab DAILY PO Last administered on 09:16; Admin Dose 1 TAB; Start 09/10/16 at 09:00 Naloxone HCl (Narcan) 0.2 mg PRN PRN IV DECREASED REPIRATORY RATE; Start at 20:00 Ondansetron HCl (Zofran Inj) 2 mg Q6H PRN IV NAUSEA AND/OR VOMITING; Start 09/09 at 20:00 Pantoprazole (Protonix Tab) 40 mg DAILY@06 PO Last administered on 09/13/16 06 :54; Admin Dose 40 MG; Start 09/10/16 at 06:00 Tramadol HCl (Ultram) 50 mg Q4H PRN PO PAIN; Start 09/09/16 at 20:00 Acetaminophen (Tylenol Tab) 500 mg Q4H PRN PO PAIN; Start 09/09/16 at 20:00 Acetaminophen/ Hydrocodone Bitart ([place] (10/325)) 1 tab Q4H PRN PO PAIN; Start 09/09/16 at 20:00 Acetaminophen/ Hydrocodone Bitart ([place] (10/325)) 2 tab Q4H PRN PO PAIN; Start 09/09/16 at 20:00 Ferrous Sulfate (Ferrous Sulfate (Ec)) 325 mg TID PO Last administered on 13:05; Admin Dose 325 MG; Start 09/09/16 at 21:00 Miscellaneous Information 1 ea NOTE XX ; Start 09/09/16 at 20:30 Glucose (Glutose) 15 gm Q15M PRN PO DECREASED GLUCOSE; Start 09/09/16 at 20:30 Glucose (Glutose) 22.5 gm Q15M PRN PO DECREASED GLUCOSE; Start 09/09/16 at 20:30 Dextrose (D50w Syringe) 25 ml Q15M PRN IV DECREASED GLUCOSE; Start 09/09/16 at 20:30 Dextrose (D50w Syringe) 50 ml Q15M PRN IV DECREASED GLUCOSE; Start 09/09/16 at 20:30 Glucagon (Glucagen) 1 mg Q15M PRN IM DECREASED GLUCOSE; Start 09/09/16 at 20:30 Glucose (Glutose) 15 gm Q15M PRN BUCCAL DECREASED GLUCOSE; Start 09/09/16 at 20: 30 Atorvastatin Calcium (Lipitor) 40 mg HS PO Last administered on 09/12/16 21:10 ; Admin Dose 40 MG; Start 09/10/16 at 21:00 Eye Lubricant (Refresh Plus) 1 drop TID BOTH EYES Last administered on 13:05; Admin Dose 1 DROP; Start 09/12/16 at 21:00 KRISSY WILKINSON Sep 13, 2016 16:52
[2016-09-13 19:44] VITALS: BP 110/61; RESP 18
[2016-09-13] MEDS: SENNA TAB PO SCH (20:30)
[2016-09-13] MEDS: ATORVASTATIN 40 MG TAB PO SCH (20:30)
[2016-09-14] MEDS: PANTOPRAZOLE (EC) 40 MG TAB PO SCH (06:37)
[2016-09-14] MEDS: Insulin NOVOLOG SS MODERATE Algorithm (SS with meals and bedtime) SC SCH ×4 (07:35→21:00)
[2016-09-14 07:50] VITALS: BP 104/51; RESP 17
[2016-09-14] MEDS: FERROUS SULFATE (EC) 325 MG TAB PO SCH ×3 (08:53→21:22)
[2016-09-14] MEDS: MULTIVITAMINS THERAPEUTIC TAB PO SCH (08:56)
[2016-09-14] MEDS: DOCUSATE SODIUM 100 MG CAP PO SCH ×2 (08:57→21:00)
[2016-09-14] MEDS: CARBOXYMETHYLCELLULOSE 0.5% 0.1 ML OPH BOTH EYES SCH ×3 (09:43→21:22)
[2016-09-14] MEDS: DEXAMETHASONE 1 MG TAB PO SCH (09:43)
--- NOTE | 2016-09-14 13:10 | CONS ---
Date/Time of Note Date/Time of Note DATE: 09/14/16 TIME: 13:07 Consult Date/Type/Reason Admit Date/Time Sep 09, 2016 at 16:27 Subjective pt comfortable Objective pulm- cta mod assist Vital Signs Date Time Temp Pulse Resp B/P Pulse Ox O2 Delivery O2 Flow Rate FiO2 09/14/16 07:50 98.3 65 17 104/51 95 Intake and Output 09/13/16 09/13/16 09/14/16 15:00 23:00 07:00 Intake Total 460 ml 700 ml Output Total 1 ml Balance 459 ml 700 ml Results/Medications Result Diagram: 09/10/1615 09/10/1615 Results 24 hrs Laboratory Tests Test 09/13/16 17:25 09/13/16 20:29 09/14/16 07:40 09/14/16 12:02 Bedside Glucose 113 143 100 122 Medications Current Medications Docusate Sodium (Colace) 100 mg BID PO Last administered on 09/13/16 20:30; Admin Dose 100 MG; Start 09/09/16 at 21:00 Senna (Senokot) 1 tab HS PO Last administered on 09/13/16 20:30; Admin Dose 1 TAB; Start 09/09/16 at 21:00 Acetaminophen (Tylenol Tab) 650 mg Q4H PRN PO PRN; Start 09/09/16 at 19:00 Bisacodyl (Dulcolax Supp) 10 mg DAILY PRN [place] CONSTIPATION; Start 09/09/16 at 19: 00 Magnesium Hydroxide (Milk Of Mag) 30 ml BID PRN PO CONSTIPATION; Start 09/09/16 at 19:00 Lactulose (Enulose) 20 gm DAILY PRN PO CONSTIPATION Last administered on 09:09; Admin Dose 20 GM; Start 09/09/16 at 19:00 Metoclopramide HCl (Reglan) 10 mg Q6H PRN IV NAUSEA; Start 09/09/16 at 19:00 Multivitamins Therapeutic (Theragran) 1 tab DAILY PO Last administered on 08:56; Admin Dose 1 TAB; Start 09/10/16 at 09:00 Naloxone HCl (Narcan) 0.2 mg PRN PRN IV DECREASED REPIRATORY RATE; Start at 20:00 Ondansetron HCl (Zofran Inj) 2 mg Q6H PRN IV NAUSEA AND/OR VOMITING; Start 09/09 at 20:00 Pantoprazole (Protonix Tab) 40 mg DAILY@06 PO Last administered on 09/14/16 06 :37; Admin Dose 40 MG; Start 09/10/16 at 06:00 Tramadol HCl (Ultram) 50 mg Q4H PRN PO PAIN; Start 09/09/16 at 20:00 Acetaminophen (Tylenol Tab) 500 mg Q4H PRN PO PAIN; Start 09/09/16 at 20:00 Acetaminophen/ Hydrocodone Bitart ([place] (10/325)) 1 tab Q4H PRN PO PAIN; Start 09/09/16 at 20:00 Acetaminophen/ Hydrocodone Bitart ([place] (10/325)) 2 tab Q4H PRN PO PAIN; Start 09/09/16 at 20:00 Ferrous Sulfate (Ferrous Sulfate (Ec)) 325 mg TID PO Last administered on 12:39; Admin Dose 325 MG; Start 09/09/16 at 21:00 Miscellaneous Information 1 ea NOTE XX ; Start 09/09/16 at 20:30 Glucose (Glutose) 15 gm Q15M PRN PO DECREASED GLUCOSE; Start 09/09/16 at 20:30 Glucose (Glutose) 22.5 gm Q15M PRN PO DECREASED GLUCOSE; Start 09/09/16 at 20:30 Dextrose (D50w Syringe) 25 ml Q15M PRN IV DECREASED GLUCOSE; Start 09/09/16 at 20:30 Dextrose (D50w Syringe) 50 ml Q15M PRN IV DECREASED GLUCOSE; Start 09/09/16 at 20:30 Glucagon (Glucagen) 1 mg Q15M PRN IM DECREASED GLUCOSE; Start 09/09/16 at 20:30 Glucose (Glutose) 15 gm Q15M PRN BUCCAL DECREASED GLUCOSE; Start 09/09/16 at 20: 30 Atorvastatin Calcium (Lipitor) 40 mg HS PO Last administered on 09/13/16 20:30 ; Admin Dose 40 MG; Start 09/10/16 at 21:00 Eye Lubricant (Refresh Plus) 1 drop TID BOTH EYES Last administered on 12:39; Admin Dose 1 DROP; Start 09/12/16 at 21:00 Assessment/Plan Additional Assessment/Plan Rehabilitation- 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
--- NOTE | 2016-09-14 18:29 | PN ---
Date/Time of Note Date/Time of Note DATE: 09/14/16 TIME: 18:24 Assessment/Plan VTE Prophylaxis VTE Prophylaxis Intervention: SCD's Lines/Catheters Urinary Cath still in place: No Assessment/Plan Chief Complaint/Hosp Course Patient remains hemodynamically stable, no acute events, blood sugar is well controlled. Assessment/Plan - Left frontoparietal meningioma, status post resection. Continue Decadron - Right lower extremities weakness secondary to meningioma, continue PT, OT. - Hyperlipidemia, continue Lipitor. - Hyperglycemia most likely secondary to steroids, continue NovoLog per mild algorithm sliding scale. - Perineal erythema, continue current wound care, follow-up on culture, offloading, will add vitamin C and zinc. Dr. Ferreira group is following an infection disease consultation. Further recommendations based on clinical course. Plan of care discussed with Dr. Singh. Problems: Exam/Review of Systems Vital Signs Vitals Vital Signs Date Time Temp Pulse Resp B/P Pulse Ox O2 Delivery O2 Flow Rate FiO2 09/14/16 07:50 98.3 65 17 104/51 95 Intake and Output 09/13/16 09/13/16 09/14/16 15:00 23:00 07:00 Intake Total 460 ml 700 ml Output Total 1 ml Balance 459 ml 700 ml Exam Constitutional: alert, oriented Head: other (Status post surgery with intact incision) Respiratory: normal air movement Cardiovascular: nl pulses Gastrointestinal: non-tender, soft Musculoskeletal: other (Right upper and lower extremities weakness) Extremities: normal pulses Results Result Diagram: 09/10/16 0615 09/10/16 0615 Results 24 hrs Laboratory Tests Test 09/13/16 20:29 09/14/16 07:40 09/14/16 12:02 09/14/16 17:07 Bedside Glucose 143 100 122 122 Medications Medications Current Medications Docusate Sodium (Colace) 100 mg BID PO Last administered on 09/13/16 20:30; Admin Dose 100 MG; Start 09/09/16 at 21:00 Senna (Senokot) 1 tab HS PO Last administered on 09/13/16 20:30; Admin Dose 1 TAB; Start 09/09/16 at 21:00 Acetaminophen (Tylenol Tab) 650 mg Q4H PRN PO PRN; Start 09/09/16 at 19:00 Bisacodyl (Dulcolax Supp) 10 mg DAILY PRN [place] CONSTIPATION; Start 09/09/16 at 19: 00 Magnesium Hydroxide (Milk Of Mag) 30 ml BID PRN PO CONSTIPATION; Start 09/09/16 at 19:00 Lactulose (Enulose) 20 gm DAILY PRN PO CONSTIPATION Last administered on 09:09; Admin Dose 20 GM; Start 09/09/16 at 19:00 Metoclopramide HCl (Reglan) 10 mg Q6H PRN IV NAUSEA; Start 09/09/16 at 19:00 Multivitamins Therapeutic (Theragran) 1 tab DAILY PO Last administered on 08:56; Admin Dose 1 TAB; Start 09/10/16 at 09:00 Naloxone HCl (Narcan) 0.2 mg PRN PRN IV DECREASED REPIRATORY RATE; Start at 20:00 Ondansetron HCl (Zofran Inj) 2 mg Q6H PRN IV NAUSEA AND/OR VOMITING; Start 09/09 at 20:00 Pantoprazole (Protonix Tab) 40 mg DAILY@06 PO Last administered on 09/14/16 06 :37; Admin Dose 40 MG; Start 09/10/16 at 06:00 Tramadol HCl (Ultram) 50 mg Q4H PRN PO PAIN; Start 09/09/16 at 20:00 Acetaminophen (Tylenol Tab) 500 mg Q4H PRN PO PAIN; Start 09/09/16 at 20:00 Acetaminophen/ Hydrocodone Bitart ([place] (10/325)) 1 tab Q4H PRN PO PAIN; Start 09/09/16 at 20:00 Acetaminophen/ Hydrocodone Bitart ([place] (10/325)) 2 tab Q4H PRN PO PAIN; Start 09/09/16 at 20:00 Ferrous Sulfate (Ferrous Sulfate (Ec)) 325 mg TID PO Last administered on 12:39; Admin Dose 325 MG; Start 09/09/16 at 21:00 Miscellaneous Information 1 ea NOTE XX ; Start 09/09/16 at 20:30 Glucose (Glutose) 15 gm Q15M PRN PO DECREASED GLUCOSE; Start 09/09/16 at 20:30 Glucose (Glutose) 22.5 gm Q15M PRN PO DECREASED GLUCOSE; Start 09/09/16 at 20:30 Dextrose (D50w Syringe) 25 ml Q15M PRN IV DECREASED GLUCOSE; Start 09/09/16 at 20:30 Dextrose (D50w Syringe) 50 ml Q15M PRN IV DECREASED GLUCOSE; Start 09/09/16 at 20:30 Glucagon (Glucagen) 1 mg Q15M PRN IM DECREASED GLUCOSE; Start 09/09/16 at 20:30 Glucose (Glutose) 15 gm Q15M PRN BUCCAL DECREASED GLUCOSE; Start 09/09/16 at 20: 30 Atorvastatin Calcium (Lipitor) 40 mg HS PO Last administered on 09/13/16 20:30 ; Admin Dose 40 MG; Start 09/10/16 at 21:00 Eye Lubricant (Refresh Plus) 1 drop TID BOTH EYES Last administered on 12:39; Admin Dose 1 DROP; Start 09/12/16 at 21:00 JOSÉ PEREZ Sep 14, 2016 18:29
[2016-09-14 20:12] VITALS: BP 108/63; RESP 18
[2016-09-14] MEDS: SENNA TAB PO SCH (21:00)
[2016-09-14] MEDS: ATORVASTATIN 40 MG TAB PO SCH (21:22)
[2016-09-14] MEDS: ASCORBIC ACID 250 MG TAB PO SCH (21:46)
[2016-09-15] MEDS: PANTOPRAZOLE (EC) 40 MG TAB PO SCH (06:46)
[2016-09-15 07:30] VITALS: BP 114/56; RESP 20
[2016-09-15] MEDS: Insulin NOVOLOG SS MODERATE Algorithm (SS with meals and bedtime) SC SCH ×4 (07:35→21:00)
[2016-09-15] MEDS: ZINC SULFATE 220 MG CAP PO SCH (08:17)
[2016-09-15] MEDS: ASCORBIC ACID 250 MG TAB PO SCH ×2 (08:17→21:27)
[2016-09-15] MEDS: FERROUS SULFATE (EC) 325 MG TAB PO SCH ×3 (08:18→21:27)
[2016-09-15] MEDS: MULTIVITAMINS THERAPEUTIC TAB PO SCH (08:18)
[2016-09-15] MEDS: DOCUSATE SODIUM 100 MG CAP PO SCH ×2 (08:21→21:00)
[2016-09-15] MEDS: CARBOXYMETHYLCELLULOSE 0.5% 0.1 ML OPH BOTH EYES SCH ×3 (09:30→21:25)
--- NOTE | 2016-09-15 12:43 | PN ---
Date/Time of Note Date/Time of Note DATE: 09/15/16 TIME: 12:40 Assessment/Plan VTE Prophylaxis VTE Prophylaxis Intervention: ambulation, other Lines/Catheters Urinary Cath still in place: No Assessment/Plan Assessment/Plan 1. 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 Medical management per neurosurgery. Continue PT/OT. SBA to CGA for bed mobility and transfers, improving. 2. Hyperlipidemia. Continue statin. 3. Left knee degenerative joint disease. Continue pain regimen. Subjective 24 Hr Interval Summary Free Text/Dictation Rehab progress note Subjective: Denies any complaints. ROS: Denies headache, no new weakness, no abdominal pain, no nausea, no vomiting , no shortness of breath, no chest pain. Exam/Review of Systems Vital Signs Vitals Vital Signs Date Time Temp Pulse Resp B/P Pulse Ox O2 Delivery O2 Flow Rate FiO2 09/15/16 07:30 98.0 73 20 114/56 96 Intake and Output 09/14/16 09/14/16 09/15/16 15:00 23:00 07:00 Intake Total 480 ml 650 ml Balance 480 ml 650 ml Exam General: Awake, alert, no acute distress CV: Regular rate, s1s2 Lungs: Clear to auscultation, no wheezing Abdomen soft, nontender Extremities without cyanosis, R AFO in place Neuro: Follows simple commands. RUE antigravity strength. Results Results 24 hrs Laboratory Tests Test 09/14/16 17:07 09/14/16 21:22 09/15/16 07:44 09/15/16 12:21 Bedside Glucose 122 102 114 121 Medications Medications Current Medications Docusate Sodium (Colace) 100 mg BID PO Last administered on 09/13/16 20:30; Admin Dose 100 MG; Start 09/09/16 at 21:00 Senna (Senokot) 1 tab HS PO Last administered on 09/13/16 20:30; Admin Dose 1 TAB; Start 09/09/16 at 21:00 Acetaminophen (Tylenol Tab) 650 mg Q4H PRN PO PRN; Start 09/09/16 at 19:00 Bisacodyl (Dulcolax Supp) 10 mg DAILY PRN [place] CONSTIPATION; Start 09/09/16 at 19: 00 Magnesium Hydroxide (Milk Of Mag) 30 ml BID PRN PO CONSTIPATION; Start 09/09/16 at 19:00 Lactulose (Enulose) 20 gm DAILY PRN PO CONSTIPATION Last administered on 09:09; Admin Dose 20 GM; Start 09/09/16 at 19:00 Metoclopramide HCl (Reglan) 10 mg Q6H PRN IV NAUSEA; Start 09/09/16 at 19:00 Multivitamins Therapeutic (Theragran) 1 tab DAILY PO Last administered on 08:18; Admin Dose 1 TAB; Start 09/10/16 at 09:00 Naloxone HCl (Narcan) 0.2 mg PRN PRN IV DECREASED REPIRATORY RATE; Start at 20:00 Ondansetron HCl (Zofran Inj) 2 mg Q6H PRN IV NAUSEA AND/OR VOMITING; Start 09/09 at 20:00 Pantoprazole (Protonix Tab) 40 mg DAILY@06 PO Last administered on 09/15/16 06 :46; Admin Dose 40 MG; Start 09/10/16 at 06:00 Tramadol HCl (Ultram) 50 mg Q4H PRN PO PAIN; Start 09/09/16 at 20:00 Acetaminophen (Tylenol Tab) 500 mg Q4H PRN PO PAIN; Start 09/09/16 at 20:00 Acetaminophen/ Hydrocodone Bitart ([place] (10/325)) 1 tab Q4H PRN PO PAIN; Start 09/09/16 at 20:00 Acetaminophen/ Hydrocodone Bitart ([place] (10/325)) 2 tab Q4H PRN PO PAIN; Start 09/09/16 at 20:00 Ferrous Sulfate (Ferrous Sulfate (Ec)) 325 mg TID PO Last administered on 12:32; Admin Dose 325 MG; Start 09/09/16 at 21:00 Miscellaneous Information 1 ea NOTE XX ; Start 09/09/16 at 20:30 Glucose (Glutose) 15 gm Q15M PRN PO DECREASED GLUCOSE; Start 09/09/16 at 20:30 Glucose (Glutose) 22.5 gm Q15M PRN PO DECREASED GLUCOSE; Start 09/09/16 at 20:30 Dextrose (D50w Syringe) 25 ml Q15M PRN IV DECREASED GLUCOSE; Start 09/09/16 at 20:30 Dextrose (D50w Syringe) 50 ml Q15M PRN IV DECREASED GLUCOSE; Start 09/09/16 at 20:30 Glucagon (Glucagen) 1 mg Q15M PRN IM DECREASED GLUCOSE; Start 09/09/16 at 20:30 Glucose (Glutose) 15 gm Q15M PRN BUCCAL DECREASED GLUCOSE; Start 09/09/16 at 20: 30 Atorvastatin Calcium (Lipitor) 40 mg HS PO Last administered on 09/14/16 21:22 ; Admin Dose 40 MG; Start 09/10/16 at 21:00 Eye Lubricant (Refresh Plus) 1 drop TID BOTH EYES Last administered on 12:32; Admin Dose 1 DROP; Start 09/12/16 at 21:00 Ascorbic Acid (Vitamin C) 250 mg BID PO Last administered on 09/15/16 08:17; Admin Dose 250 MG; Start 09/14/16 at 21:00 Zinc Sulfate (Zinc Sulfate) 220 mg DAILY PO Last administered on 09/15/16 08: 17; Admin Dose 220 MG; Start 09/15/16 at 09:00 ANDREW RAMEY Sep 15, 2016 12:43
[2016-09-15] MEDS: ACETAMINOPHEN 325 MG TAB PO PRN (18:39)
[2016-09-15 19:46] VITALS: BP 102/56; RESP 20
[2016-09-15] MEDS: SENNA TAB PO SCH (21:00)
[2016-09-15] MEDS: ATORVASTATIN 40 MG TAB PO SCH (21:27)
[2016-09-16] MEDS: PANTOPRAZOLE (EC) 40 MG TAB PO SCH (05:52)
[2016-09-16] MEDS: Insulin NOVOLOG SS MODERATE Algorithm (SS with meals and bedtime) SC SCH ×4 (07:35→21:00)
[2016-09-16 08:00] VITALS: BP 109/59; PULSE 64; RESP 18
[2016-09-16] MEDS: ASCORBIC ACID 250 MG TAB PO SCH ×2 (08:21→20:57)
[2016-09-16] MEDS: MULTIVITAMINS THERAPEUTIC TAB PO SCH (08:21)
[2016-09-16] MEDS: ZINC SULFATE 220 MG CAP PO SCH (08:21)
[2016-09-16] MEDS: FERROUS SULFATE (EC) 325 MG TAB PO SCH ×3 (08:21→20:56)
[2016-09-16] MEDS: DOCUSATE SODIUM 100 MG CAP PO SCH ×2 (08:22→21:00)
[2016-09-16] MEDS: CARBOXYMETHYLCELLULOSE 0.5% 0.1 ML OPH BOTH EYES SCH ×3 (09:57→20:56)
--- NOTE | 2016-09-16 11:14 | PN ---
Date/Time of Note Date/Time of Note DATE: 09/16/16 TIME: 11:10 Assessment/Plan VTE Prophylaxis VTE Prophylaxis Intervention: ambulation, other Lines/Catheters Urinary Cath still in place: No Assessment/Plan Assessment/Plan 1. 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 Continue medical management per neurosurgery. Continue PT/OT. ADLs improving, now stand by assist for toileting and grooming, minimal assist for lower body dressing. 2. Hyperlipidemia. Continue statin. 3. Left knee Degenerative joint disease. Continue pain regimen as needed. Monitor pain levels. Subjective 24 Hr Interval Summary Free Text/Dictation Rehab progress note Subjective: Denies any acute complaints. ROS: No chills, no headache, no cough, no chest pain, no shortness of breath, no abdominal pain, no dysuria, no vomiting. Exam/Review of Systems Vital Signs Vitals Vital Signs Date Time Temp Pulse Resp B/P Pulse Ox O2 Delivery O2 Flow Rate FiO2 09/16/16 08:00 98.6 64 18 109/59 98 Room Air Intake and Output 09/15/16 09/15/16 09/16/16 15:00 23:00 07:00 Intake Total 1340 ml Output Total 250 ml Balance 1340 ml -250 ml Exam General: Awake, alert, no acute distress HEENT: Cranial adalberto in place, clean and dry, no active drainage CV: Regular rate and rhythm, audible s1s2 Lungs: Clear to auscultation, no wheezing or crackles Abdomen soft, nontender, +bowel sounds Extremities without cyanosis, R AFO in place Neuro: No focal changes. Follows simple commands. Results Results 24 hrs Laboratory Tests Test 09/15/16 12:21 09/15/16 17:22 09/15/16 21:25 09/16/16 07:46 Bedside Glucose 121 108 106 96 Medications Medications Current Medications Docusate Sodium (Colace) 100 mg BID PO Last administered on 09/13/16 20:30; Admin Dose 100 MG; Start 09/09/16 at 21:00 Senna (Senokot) 1 tab HS PO Last administered on 09/13/16 20:30; Admin Dose 1 TAB; Start 09/09/16 at 21:00 Acetaminophen (Tylenol Tab) 650 mg Q4H PRN PO PRN Last administered on 18:39; Admin Dose 650 MG; Start 09/09/16 at 19:00 Bisacodyl (Dulcolax Supp) 10 mg DAILY PRN [place] CONSTIPATION; Start 09/09/16 at 19: 00 Magnesium Hydroxide (Milk Of Mag) 30 ml BID PRN PO CONSTIPATION; Start 09/09/16 at 19:00 Lactulose (Enulose) 20 gm DAILY PRN PO CONSTIPATION Last administered on 09:09; Admin Dose 20 GM; Start 09/09/16 at 19:00 Metoclopramide HCl (Reglan) 10 mg Q6H PRN IV NAUSEA; Start 09/09/16 at 19:00 Multivitamins Therapeutic (Theragran) 1 tab DAILY PO Last administered on 08:21; Admin Dose 1 TAB; Start 09/10/16 at 09:00 Naloxone HCl (Narcan) 0.2 mg PRN PRN IV DECREASED REPIRATORY RATE; Start at 20:00 Ondansetron HCl (Zofran Inj) 2 mg Q6H PRN IV NAUSEA AND/OR VOMITING; Start 09/09 at 20:00 Pantoprazole (Protonix Tab) 40 mg DAILY@06 PO Last administered on 09/16/16 05 :52; Admin Dose 40 MG; Start 09/10/16 at 06:00 Tramadol HCl (Ultram) 50 mg Q4H PRN PO PAIN; Start 09/09/16 at 20:00 Acetaminophen (Tylenol Tab) 500 mg Q4H PRN PO PAIN; Start 09/09/16 at 20:00 Acetaminophen/ Hydrocodone Bitart ([place] (10/325)) 1 tab Q4H PRN PO PAIN; Start 09/09/16 at 20:00 Acetaminophen/ Hydrocodone Bitart ([place] (10/325)) 2 tab Q4H PRN PO PAIN; Start 09/09/16 at 20:00 Ferrous Sulfate (Ferrous Sulfate (Ec)) 325 mg TID PO Last administered on 08:21; Admin Dose 325 MG; Start 09/09/16 at 21:00 Miscellaneous Information 1 ea NOTE XX ; Start 09/09/16 at 20:30 Glucose (Glutose) 15 gm Q15M PRN PO DECREASED GLUCOSE; Start 09/09/16 at 20:30 Glucose (Glutose) 22.5 gm Q15M PRN PO DECREASED GLUCOSE; Start 09/09/16 at 20:30 Dextrose (D50w Syringe) 25 ml Q15M PRN IV DECREASED GLUCOSE; Start 09/09/16 at 20:30 Dextrose (D50w Syringe) 50 ml Q15M PRN IV DECREASED GLUCOSE; Start 09/09/16 at 20:30 Glucagon (Glucagen) 1 mg Q15M PRN IM DECREASED GLUCOSE; Start 09/09/16 at 20:30 Glucose (Glutose) 15 gm Q15M PRN BUCCAL DECREASED GLUCOSE; Start 09/09/16 at 20: 30 Atorvastatin Calcium (Lipitor) 40 mg HS PO Last administered on 09/15/16 21:27 ; Admin Dose 40 MG; Start 09/10/16 at 21:00 Eye Lubricant (Refresh Plus) 1 drop TID BOTH EYES Last administered on 09:57; Admin Dose 1 DROP; Start 09/12/16 at 21:00 Ascorbic Acid (Vitamin C) 250 mg BID PO Last administered on 09/16/16 08:21; Admin Dose 250 MG; Start 09/14/16 at 21:00 Zinc Sulfate (Zinc Sulfate) 220 mg DAILY PO Last administered on 09/16/16 08: 21; Admin Dose 220 MG; Start 09/15/16 at 09:00 ANDREW RAMEY Sep 16, 2016 11:13
--- NOTE | 2016-09-16 18:41 | PN ---
Date/Time of Note Date/Time of Note DATE: 09/16/16 TIME: 18:40 Assessment/Plan VTE Prophylaxis VTE Prophylaxis Intervention: other Lines/Catheters Urinary Cath still in place: No Assessment/Plan Assessment/Plan - Left frontoparietal meningioma, status post resection. Continue Decadron - Right lower extremities weakness secondary to meningioma, continue PT, OT. - Hyperlipidemia, continue Lipitor. - Hyperglycemia most likely secondary to steroids, continue NovoLog per mild algorithm sliding scale. - Perineal erythema, continue current wound care, follow-up on culture, offloading, will add vitamin C and zinc. Dr. Ferreira group is following an infection disease consultation. Further recommendations based on clinical course. Plan of care discussed with Dr. Singh. Subjective 24 Hr Interval Summary Respiratory: no complaints Cardiovascular: no complaints Gastrointestinal: no complaints Genitourinary: no complaints Exam/Review of Systems Vital Signs Vitals Vital Signs Date Time Temp Pulse Resp B/P Pulse Ox O2 Delivery O2 Flow Rate FiO2 09/16/16 08:00 98.6 64 18 109/59 98 Room Air Intake and Output 09/15/16 09/15/16 09/16/16 15:00 23:00 07:00 Intake Total 1340 ml Output Total 250 ml Balance 1340 ml -250 ml Exam Constitutional: alert, well developed Respiratory: clear to auscultation, normal air movement Cardiovascular: nl pulses, regular rate and rhythm Gastrointestinal: non-tender, soft Musculoskeletal: nl extremities to inspection Neurological: nl speech Results Results 24 hrs Laboratory Tests Test 09/15/16 21:25 09/16/16 07:46 09/16/16 12:00 09/16/16 17:06 Bedside Glucose 106 96 139 98 Medications Medications Current Medications Docusate Sodium (Colace) 100 mg BID PO Last administered on 09/13/16 20:30; Admin Dose 100 MG; Start 09/09/16 at 21:00 Senna (Senokot) 1 tab HS PO Last administered on 09/13/16 20:30; Admin Dose 1 TAB; Start 09/09/16 at 21:00 Acetaminophen (Tylenol Tab) 650 mg Q4H PRN PO PRN Last administered on 18:39; Admin Dose 650 MG; Start 09/09/16 at 19:00 Bisacodyl (Dulcolax Supp) 10 mg DAILY PRN [place] CONSTIPATION; Start 09/09/16 at 19: 00 Magnesium Hydroxide (Milk Of Mag) 30 ml BID PRN PO CONSTIPATION; Start 09/09/16 at 19:00 Lactulose (Enulose) 20 gm DAILY PRN PO CONSTIPATION Last administered on 09:09; Admin Dose 20 GM; Start 09/09/16 at 19:00 Metoclopramide HCl (Reglan) 10 mg Q6H PRN IV NAUSEA; Start 09/09/16 at 19:00 Multivitamins Therapeutic (Theragran) 1 tab DAILY PO Last administered on 08:21; Admin Dose 1 TAB; Start 09/10/16 at 09:00 Naloxone HCl (Narcan) 0.2 mg PRN PRN IV DECREASED REPIRATORY RATE; Start at 20:00 Ondansetron HCl (Zofran Inj) 2 mg Q6H PRN IV NAUSEA AND/OR VOMITING; Start 09/09 at 20:00 Pantoprazole (Protonix Tab) 40 mg DAILY@06 PO Last administered on 09/16/16 05 :52; Admin Dose 40 MG; Start 09/10/16 at 06:00 Tramadol HCl (Ultram) 50 mg Q4H PRN PO PAIN; Start 09/09/16 at 20:00 Acetaminophen (Tylenol Tab) 500 mg Q4H PRN PO PAIN; Start 09/09/16 at 20:00 Acetaminophen/ Hydrocodone Bitart ([place] (10/325)) 1 tab Q4H PRN PO PAIN; Start 09/09/16 at 20:00 Acetaminophen/ Hydrocodone Bitart ([place] (10/325)) 2 tab Q4H PRN PO PAIN; Start 09/09/16 at 20:00 Ferrous Sulfate (Ferrous Sulfate (Ec)) 325 mg TID PO Last administered on 12:25; Admin Dose 325 MG; Start 09/09/16 at 21:00 Miscellaneous Information 1 ea NOTE XX ; Start 09/09/16 at 20:30 Glucose (Glutose) 15 gm Q15M PRN PO DECREASED GLUCOSE; Start 09/09/16 at 20:30 Glucose (Glutose) 22.5 gm Q15M PRN PO DECREASED GLUCOSE; Start 09/09/16 at 20:30 Dextrose (D50w Syringe) 25 ml Q15M PRN IV DECREASED GLUCOSE; Start 09/09/16 at 20:30 Dextrose (D50w Syringe) 50 ml Q15M PRN IV DECREASED GLUCOSE; Start 09/09/16 at 20:30 Glucagon (Glucagen) 1 mg Q15M PRN IM DECREASED GLUCOSE; Start 09/09/16 at 20:30 Glucose (Glutose) 15 gm Q15M PRN BUCCAL DECREASED GLUCOSE; Start 09/09/16 at 20: 30 Atorvastatin Calcium (Lipitor) 40 mg HS PO Last administered on 09/15/16 21:27 ; Admin Dose 40 MG; Start 09/10/16 at 21:00 Eye Lubricant (Refresh Plus) 1 drop TID BOTH EYES Last administered on 12:25; Admin Dose 1 DROP; Start 09/12/16 at 21:00 Ascorbic Acid (Vitamin C) 250 mg BID PO Last administered on 09/16/16 08:21; Admin Dose 250 MG; Start 09/14/16 at 21:00 Zinc Sulfate (Zinc Sulfate) 220 mg DAILY PO Last administered on 09/16/16 08: 21; Admin Dose 220 MG; Start 09/15/16 at 09:00 KRISSY WILKINSON Sep 16, 2016 18:41
--- NOTE | 2016-09-16 18:43 | PN ---
Date/Time of Note Date/Time of Note DATE: 09/16/16 TIME: 18:42 Assessment/Plan Lines/Catheters Urinary Cath still in place: No Assessment/Plan Assessment/Plan - Left frontoparietal meningioma, status post resection. Continue Decadron - Right lower extremities weakness secondary to meningioma, continue PT, OT. - Hyperlipidemia, continue Lipitor. - Hyperglycemia most likely secondary to steroids, continue NovoLog per mild algorithm sliding scale. - Perineal erythema, continue current wound care, follow-up on culture, offloading, will add vitamin C and zinc. Dr. Ferreira group is following an infection disease consultation. Further recommendations based on clinical course. Plan of care discussed with Dr. Singh. Subjective 24 Hr Interval Summary Free Text/Dictation Late entry- 09/16/2016 ENT: no complaints Respiratory: no complaints Cardiovascular: no complaints Gastrointestinal: no complaints Exam/Review of Systems Vital Signs Vitals Vital Signs Date Time Temp Pulse Resp B/P Pulse Ox O2 Delivery O2 Flow Rate FiO2 09/16/16 08:00 98.6 64 18 109/59 98 Room Air Intake and Output 09/15/16 09/15/16 09/16/16 15:00 23:00 07:00 Intake Total 1340 ml Output Total 250 ml Balance 1340 ml -250 ml Exam Constitutional: alert, well developed Respiratory: clear to auscultation, normal air movement Cardiovascular: nl pulses, regular rate and rhythm Gastrointestinal: non-tender, soft Extremities: normal pulses Neurological: nl speech Results Results 24 hrs Laboratory Tests Test 09/15/16 21:25 09/16/16 07:46 09/16/16 12:00 09/16/16 17:06 Bedside Glucose 106 96 139 98 Medications Medications Current Medications Docusate Sodium (Colace) 100 mg BID PO Last administered on 09/13/16 20:30; Admin Dose 100 MG; Start 09/09/16 at 21:00 Senna (Senokot) 1 tab HS PO Last administered on 09/13/16 20:30; Admin Dose 1 TAB; Start 09/09/16 at 21:00 Acetaminophen (Tylenol Tab) 650 mg Q4H PRN PO PRN Last administered on 18:39; Admin Dose 650 MG; Start 09/09/16 at 19:00 Bisacodyl (Dulcolax Supp) 10 mg DAILY PRN [place] CONSTIPATION; Start 09/09/16 at 19: 00 Magnesium Hydroxide (Milk Of Mag) 30 ml BID PRN PO CONSTIPATION; Start 09/09/16 at 19:00 Lactulose (Enulose) 20 gm DAILY PRN PO CONSTIPATION Last administered on 09:09; Admin Dose 20 GM; Start 09/09/16 at 19:00 Metoclopramide HCl (Reglan) 10 mg Q6H PRN IV NAUSEA; Start 09/09/16 at 19:00 Multivitamins Therapeutic (Theragran) 1 tab DAILY PO Last administered on 08:21; Admin Dose 1 TAB; Start 09/10/16 at 09:00 Naloxone HCl (Narcan) 0.2 mg PRN PRN IV DECREASED REPIRATORY RATE; Start at 20:00 Ondansetron HCl (Zofran Inj) 2 mg Q6H PRN IV NAUSEA AND/OR VOMITING; Start 09/09 at 20:00 Pantoprazole (Protonix Tab) 40 mg DAILY@06 PO Last administered on 09/16/16 05 :52; Admin Dose 40 MG; Start 09/10/16 at 06:00 Tramadol HCl (Ultram) 50 mg Q4H PRN PO PAIN; Start 09/09/16 at 20:00 Acetaminophen (Tylenol Tab) 500 mg Q4H PRN PO PAIN; Start 09/09/16 at 20:00 Acetaminophen/ Hydrocodone Bitart ([place] (10/325)) 1 tab Q4H PRN PO PAIN; Start 09/09/16 at 20:00 Acetaminophen/ Hydrocodone Bitart ([place] (10/325)) 2 tab Q4H PRN PO PAIN; Start 09/09/16 at 20:00 Ferrous Sulfate (Ferrous Sulfate (Ec)) 325 mg TID PO Last administered on 12:25; Admin Dose 325 MG; Start 09/09/16 at 21:00 Miscellaneous Information 1 ea NOTE XX ; Start 09/09/16 at 20:30 Glucose (Glutose) 15 gm Q15M PRN PO DECREASED GLUCOSE; Start 09/09/16 at 20:30 Glucose (Glutose) 22.5 gm Q15M PRN PO DECREASED GLUCOSE; Start 09/09/16 at 20:30 Dextrose (D50w Syringe) 25 ml Q15M PRN IV DECREASED GLUCOSE; Start 09/09/16 at 20:30 Dextrose (D50w Syringe) 50 ml Q15M PRN IV DECREASED GLUCOSE; Start 09/09/16 at 20:30 Glucagon (Glucagen) 1 mg Q15M PRN IM DECREASED GLUCOSE; Start 09/09/16 at 20:30 Glucose (Glutose) 15 gm Q15M PRN BUCCAL DECREASED GLUCOSE; Start 09/09/16 at 20: 30 Atorvastatin Calcium (Lipitor) 40 mg HS PO Last administered on 09/15/16 21:27 ; Admin Dose 40 MG; Start 09/10/16 at 21:00 Eye Lubricant (Refresh Plus) 1 drop TID BOTH EYES Last administered on 12:25; Admin Dose 1 DROP; Start 09/12/16 at 21:00 Ascorbic Acid (Vitamin C) 250 mg BID PO Last administered on 09/16/16 08:21; Admin Dose 250 MG; Start 09/14/16 at 21:00 Zinc Sulfate (Zinc Sulfate) 220 mg DAILY PO Last administered on 09/16/16 08: 21; Admin Dose 220 MG; Start 09/15/16 at 09:00 KRISSY WILKINSON Sep 16, 2016 18:43
[2016-09-16 20:00] VITALS: BP 109/62; RESP 18
[2016-09-16] MEDS: ATORVASTATIN 40 MG TAB PO SCH (20:56)
[2016-09-16] MEDS: SENNA TAB PO SCH (21:00)
[2016-09-17] MEDS: PANTOPRAZOLE (EC) 40 MG TAB PO SCH (06:03)
[2016-09-17 07:30] VITALS: BP 105/54; RESP 18
[2016-09-17] MEDS: Insulin NOVOLOG SS MODERATE Algorithm (SS with meals and bedtime) SC SCH ×4 (07:35→21:00)
[2016-09-17 07:36] LABS: ADD SCAN DIFF NO
[2016-09-17 07:40] LABS: BASOPHIL # 0.1 10^3/ul (0.0-0.1); BASOPHILS % 0.6 % (0.0-2.0); EOSINOPHILS # 0.2 10^3/ul (0.0-0.5); EOSINOPHILS % 1.7 % (0.0-7.0); HEMATOCRIT 35.8 % (37.0-47.0); HEMOGLOBIN 11.8 g/dl (12.0-16.0); LYMPHOCYTES # 2.7 10^3/ul (0.8-2.9); LYMPHOCYTES % 27.6 % (15.0-51.0); MEAN CORPUSCULAR HEMOGLOBIN 29.1 pg (29.0-33.0); MEAN CORPUSCULAR VOLUME 88.2 fl (82.0-101.0); MEAN PLATELET VOLUME 10.1 fl (7.4-10.4); MONOCYTES % 9.8 % (0.0-11.0); NEUTROPHIL # 5.9 10^3/ul (1.6-7.5); NEUTROPHILS % 59.9 % (39.0-77.0); PLATELET COUNT 241 10^3/UL (140-415); RED BLOOD COUNT 4.06 10^6/ul (4.20-5.40); RED CELL DISTRIBUTION WIDTH 15.6 % (11.5-14.5); WHITE BLOOD COUNT 9.9 10^3/ul (4.8-10.8)
[2016-09-17] MEDS: CARBOXYMETHYLCELLULOSE 0.5% 0.1 ML OPH BOTH EYES SCH ×3 (09:00→21:07)
[2016-09-17] MEDS: ZINC SULFATE 220 MG CAP PO SCH (09:12)
[2016-09-17] MEDS: ASCORBIC ACID 250 MG TAB PO SCH ×2 (09:12→21:07)
[2016-09-17] MEDS: DOCUSATE SODIUM 100 MG CAP PO SCH ×2 (09:12→21:00)
[2016-09-17] MEDS: ACETAMINOPHEN 325 MG TAB PO PRN (09:12)
[2016-09-17] MEDS: MULTIVITAMINS THERAPEUTIC TAB PO SCH (09:12)
[2016-09-17] MEDS: FERROUS SULFATE (EC) 325 MG TAB PO SCH ×3 (09:12→21:08)
--- NOTE | 2016-09-17 13:14 | CONS ---
Date/Time of Note Date/Time of Note DATE: 09/17/16 TIME: 13:13 Consult Date/Type/Reason Admit Date/Time Sep 09, 2016 at 16:27 Subjective No complaint Objective Vital Signs Date Time Temp Pulse Resp B/P Pulse Ox O2 Delivery O2 Flow Rate FiO2 09/16/16 20:00 98.2 98 18 109/62 94 09/16/16 08:00 Room Air Intake and Output 09/16/16 09/16/16 09/17/16 15:00 23:00 07:00 Output Total 550 ml Balance -550 ml INTERDISCIPLINARY TEAM CONFERENCE BOWEL- Cont BLADDER-Cont SKIN- improving herpetic lesions OT- DRESSING-standby assist BATHING-standby assist/minimal TOILETING-standby assist PT- BED MOBILITY-standby assist TRANSFERS-standby assist/contact-guard assist AMBULATION-standby assist 150 feet SPEECH- COGNITION-minimal assist A/P- Interdisciplinary team conference held today. Please see interdisciplinary sheet. Working toward d.c. on 09/21 with post discharge follow up of physical therapy, occupational therapy. Functional Impact of Comorbidity: Patient with some cognitive impairments although significantly improved near baseline. Results/Medications Result Diagram: 09/17/16 0612 Results 24 hrs Laboratory Tests Test 09/16/16 17:06 09/16/16 21:00 09/17/16 06:12 09/17/16 07:48 Bedside Glucose 98 104 94 White Blood Count 9.9 # Red Blood Count 4.06 L Hemoglobin 11.8 L Hematocrit 35.8 L Mean Corpuscular Volume 88.2 Mean Corpuscular Hemoglobin 29.1 Mean Corpuscular Hemoglobin Concent 33.0 Red Cell Distribution Width 15.6 H Platelet Count 241 # Mean Platelet Volume 10.1 Neutrophils % 59.9 Lymphocytes % 27.6 Monocytes % 9.8 Eosinophils % 1.7 Basophils % 0.6 Nucleated Red Blood Cells % 0.0 Neutrophils # 5.9 Lymphocytes # 2.7 Monocytes # 1.0 H Eosinophils # 0.2 Basophils # 0.1 Nucleated Red Blood Cells # 0.0 Test 09/17/16 12:11 Bedside Glucose 105 Medications Current Medications Docusate Sodium (Colace) 100 mg BID PO Last administered on 09/17/16t 09:12; Admin Dose 100 MG; Start 09/09/16 at 21:00 Senna (Senokot) 1 tab HS PO Last administered on 09/13/16 20:30; Admin Dose 1 TAB; Start 09/09/16 at 21:00 Acetaminophen (Tylenol Tab) 650 mg Q4H PRN PO PRN Last administered on 09:12; Admin Dose 650 MG; Start 09/09/16 at 19:00 Bisacodyl (Dulcolax Supp) 10 mg DAILY PRN [place] CONSTIPATION; Start 09/09/16 at 19: 00 Magnesium Hydroxide (Milk Of Mag) 30 ml BID PRN PO CONSTIPATION; Start 09/09/16 at 19:00 Lactulose (Enulose) 20 gm DAILY PRN PO CONSTIPATION Last administered on 09:09; Admin Dose 20 GM; Start 09/09/16 at 19:00 Metoclopramide HCl (Reglan) 10 mg Q6H PRN IV NAUSEA; Start 09/09/16 at 19:00 Multivitamins Therapeutic (Theragran) 1 tab DAILY PO Last administered on 09:12; Admin Dose 1 TAB; Start 09/10/16 at 09:00 Naloxone HCl (Narcan) 0.2 mg PRN PRN IV DECREASED REPIRATORY RATE; Start at 20:00 Ondansetron HCl (Zofran Inj) 2 mg Q6H PRN IV NAUSEA AND/OR VOMITING; Start 09/09 at 20:00 Pantoprazole (Protonix Tab) 40 mg DAILY@06 PO Last administered on 09/17/16 06 :03; Admin Dose 40 MG; Start 09/10/16 at 06:00 Tramadol HCl (Ultram) 50 mg Q4H PRN PO PAIN; Start 09/09/16 at 20:00 Acetaminophen (Tylenol Tab) 500 mg Q4H PRN PO PAIN; Start 09/09/16 at 20:00 Acetaminophen/ Hydrocodone Bitart ([place] (10/325)) 1 tab Q4H PRN PO PAIN; Start 09/09/16 at 20:00 Acetaminophen/ Hydrocodone Bitart ([place] (10/325)) 2 tab Q4H PRN PO PAIN; Start 09/09/16 at 20:00 Ferrous Sulfate (Ferrous Sulfate (Ec)) 325 mg TID PO Last administered on 09:12; Admin Dose 325 MG; Start 09/09/16 at 21:00 Miscellaneous Information 1 ea NOTE XX ; Start 09/09/16 at 20:30 Glucose (Glutose) 15 gm Q15M PRN PO DECREASED GLUCOSE; Start 09/09/16 at 20:30 Glucose (Glutose) 22.5 gm Q15M PRN PO DECREASED GLUCOSE; Start 09/09/16 at 20:30 Dextrose (D50w Syringe) 25 ml Q15M PRN IV DECREASED GLUCOSE; Start 09/09/16 at 20:30 Dextrose (D50w Syringe) 50 ml Q15M PRN IV DECREASED GLUCOSE; Start 09/09/16 at 20:30 Glucagon (Glucagen) 1 mg Q15M PRN IM DECREASED GLUCOSE; Start 09/09/16 at 20:30 Glucose (Glutose) 15 gm Q15M PRN BUCCAL DECREASED GLUCOSE; Start 09/09/16 at 20: 30 Atorvastatin Calcium (Lipitor) 40 mg HS PO Last administered on 09/16/16 20:56 ; Admin Dose 40 MG; Start 09/10/16 at 21:00 Eye Lubricant (Refresh Plus) 1 drop TID BOTH EYES Last administered on 20:56; Admin Dose 1 DROP; Start 09/12/16 at 21:00 Ascorbic Acid (Vitamin C) 250 mg BID PO Last administered on 09/17/16 09:12; Admin Dose 250 MG; Start 09/14/16 at 21:00 Zinc Sulfate (Zinc Sulfate) 220 mg DAILY PO Last administered on 09/17/16 09: 12; Admin Dose 220 MG; Start 09/15/16 at 09:00 JESSICA PATTERSON MD Sep 17, 2016 13:13
--- NOTE | 2016-09-17 16:34 | PN ---
Date/Time of Note Date/Time of Note DATE: 09/17/16 TIME: 16:30 Assessment/Plan VTE Prophylaxis VTE Prophylaxis Intervention: SCD's Lines/Catheters Urinary Cath still in place: No Assessment/Plan Chief Complaint/Hosp Course No complaints, patient's continues to work with PT OT, denies any pain. Assessment/Plan - Left frontoparietal meningioma, status post resection. Continue Decadron - Right lower extremities weakness secondary to meningioma, continue PT, OT. - Hyperlipidemia, continue Lipitor. - Hyperglycemia most likely secondary to steroids, continue NovoLog per mild algorithm sliding scale. - Perineal erythema, continue current wound care, follow-up on culture, offloading, will add vitamin C and zinc. Dr. Ferreira group is following an infection disease consultation. - Buttocks rash with papules was culture positive for herpes infection, continue acyclovir. Further recommendations based on clinical course. Plan of care discussed with Dr. Singh. Problems: Exam/Review of Systems Vital Signs Vitals Vital Signs Date Time Temp Pulse Resp B/P Pulse Ox O2 Delivery O2 Flow Rate FiO2 09/17/16 07:30 100.3 83 18 105/54 94 09/16/16 08:00 Room Air Intake and Output 09/16/16 09/16/16 09/17/16 15:00 23:00 07:00 Output Total 550 ml Balance -550 ml Exam Constitutional: alert, oriented Head: other (Status post surgery with intact incision) Respiratory: normal air movement Cardiovascular: nl pulses Gastrointestinal: non-tender, soft Musculoskeletal: other (Right upper and lower extremities weakness) Extremities: normal pulses Results Result Diagram: 09/17/16 0612 Results 24 hrs Laboratory Tests Test 09/16/16 17:06 09/16/16 21:00 09/17/16 06:12 09/17/16 07:48 Bedside Glucose 98 104 94 White Blood Count 9.9 # Red Blood Count 4.06 L Hemoglobin 11.8 L Hematocrit 35.8 L Mean Corpuscular Volume 88.2 Mean Corpuscular Hemoglobin 29.1 Mean Corpuscular Hemoglobin Concent 33.0 Red Cell Distribution Width 15.6 H Platelet Count 241 # Mean Platelet Volume 10.1 Neutrophils % 59.9 Lymphocytes % 27.6 Monocytes % 9.8 Eosinophils % 1.7 Basophils % 0.6 Nucleated Red Blood Cells % 0.0 Neutrophils # 5.9 Lymphocytes # 2.7 Monocytes # 1.0 H Eosinophils # 0.2 Basophils # 0.1 Nucleated Red Blood Cells # 0.0 Test 09/17/16 12:11 Bedside Glucose 105 Medications Medications Current Medications Docusate Sodium (Colace) 100 mg BID PO Last administered on 09/17/16 09:12; Admin Dose 100 MG; Start 09/09/16 at 21:00 Senna (Senokot) 1 tab HS PO Last administered on 09/13/16 20:30; Admin Dose 1 TAB; Start 09/09/16 at 21:00 Acetaminophen (Tylenol Tab) 650 mg Q4H PRN PO PRN Last administered on 09:12; Admin Dose 650 MG; Start 09/09/16 at 19:00 Bisacodyl (Dulcolax Supp) 10 mg DAILY PRN [place] CONSTIPATION; Start 09/09/16 at 19: 00 Magnesium Hydroxide (Milk Of Mag) 30 ml BID PRN PO CONSTIPATION; Start 09/09/16 at 19:00 Lactulose (Enulose) 20 gm DAILY PRN PO CONSTIPATION Last administered on 09:09; Admin Dose 20 GM; Start 09/09/16 at 19:00 Metoclopramide HCl (Reglan) 10 mg Q6H PRN IV NAUSEA; Start 09/09/16 at 19:00 Multivitamins Therapeutic (Theragran) 1 tab DAILY PO Last administered on 09:12; Admin Dose 1 TAB; Start 09/10/16 at 09:00 Naloxone HCl (Narcan) 0.2 mg PRN PRN IV DECREASED REPIRATORY RATE; Start at 20:00 Ondansetron HCl (Zofran Inj) 2 mg Q6H PRN IV NAUSEA AND/OR VOMITING; Start 09/09 at 20:00 Pantoprazole (Protonix Tab) 40 mg DAILY@06 PO Last administered on 09/17/16 06 :03; Admin Dose 40 MG; Start 09/10/16 at 06:00 Tramadol HCl (Ultram) 50 mg Q4H PRN PO PAIN; Start 09/09/16 at 20:00 Acetaminophen (Tylenol Tab) 500 mg Q4H PRN PO PAIN; Start 09/09/16 at 20:00 Acetaminophen/ Hydrocodone Bitart ([place] (10/325)) 1 tab Q4H PRN PO PAIN; Start 09/09/16 at 20:00 Acetaminophen/ Hydrocodone Bitart ([place] (10/325)) 2 tab Q4H PRN PO PAIN; Start 09/09/16 at 20:00 Ferrous Sulfate (Ferrous Sulfate (Ec)) 325 mg TID PO Last administered on 13:33; Admin Dose 325 MG; Start 09/09/16 at 21:00 Miscellaneous Information 1 ea NOTE XX ; Start 09/09/16 at 20:30 Glucose (Glutose) 15 gm Q15M PRN PO DECREASED GLUCOSE; Start 09/09/16 at 20:30 Glucose (Glutose) 22.5 gm Q15M PRN PO DECREASED GLUCOSE; Start 09/09/16 at 20:30 Dextrose (D50w Syringe) 25 ml Q15M PRN IV DECREASED GLUCOSE; Start 09/09/16 at 20:30 Dextrose (D50w Syringe) 50 ml Q15M PRN IV DECREASED GLUCOSE; Start 09/09/16 at 20:30 Glucagon (Glucagen) 1 mg Q15M PRN IM DECREASED GLUCOSE; Start 09/09/16 at 20:30 Glucose (Glutose) 15 gm Q15M PRN BUCCAL DECREASED GLUCOSE; Start 09/09/16 at 20: 30 Atorvastatin Calcium (Lipitor) 40 mg HS PO Last administered on 09/16/16 20:56 ; Admin Dose 40 MG; Start 09/10/16 at 21:00 Eye Lubricant (Refresh Plus) 1 drop TID BOTH EYES Last administered on 13:33; Admin Dose 1 DROP; Start 09/12/16 at 21:00 Ascorbic Acid (Vitamin C) 250 mg BID PO Last administered on 09/17/16 09:12; Admin Dose 250 MG; Start 09/14/16 at 21:00 Zinc Sulfate (Zinc Sulfate) 220 mg DAILY PO Last administered on 09/17/16 09: 12; Admin Dose 220 MG; Start 09/15/16 at 09:00 Acyclovir (Zovirax) 800 mg TID PO ; Start 09/17/16 at 21:00; Stop 09/27/16 at 20 :59 JOSÉ PEREZ Sep 17, 2016 16:34
[2016-09-17 20:00] VITALS: BP 119/56; RESP 18
[2016-09-17] MEDS: SENNA TAB PO SCH (21:00)
[2016-09-17] MEDS: ACYCLOVIR 800 MG TAB PO SCH (21:07)
[2016-09-17] MEDS: ATORVASTATIN 40 MG TAB PO SCH (21:08)
[2016-09-18] MEDS: PANTOPRAZOLE (EC) 40 MG TAB PO SCH (06:06)
[2016-09-18] MEDS: Insulin NOVOLOG SS MODERATE Algorithm (SS with meals and bedtime) SC SCH ×4 (07:35→20:59)
[2016-09-18 08:00] VITALS: BP 115/57; RESP 18
[2016-09-18] MEDS: DOCUSATE SODIUM 100 MG CAP PO SCH ×2 (09:00→20:59)
[2016-09-18] MEDS: CARBOXYMETHYLCELLULOSE 0.5% 0.1 ML OPH BOTH EYES SCH ×3 (09:00→20:57)
[2016-09-18] MEDS: ASCORBIC ACID 250 MG TAB PO SCH ×2 (09:20→20:57)
[2016-09-18] MEDS: MULTIVITAMINS THERAPEUTIC TAB PO SCH (09:20)
[2016-09-18] MEDS: ACYCLOVIR 800 MG TAB PO SCH ×3 (09:20→20:57)
[2016-09-18] MEDS: ZINC SULFATE 220 MG CAP PO SCH (09:20)
[2016-09-18] MEDS: FERROUS SULFATE (EC) 325 MG TAB PO SCH ×3 (09:20→20:57)
--- NOTE | 2016-09-18 12:08 | CONS ---
Date/Time of Note Date/Time of Note DATE: 09/18/16 TIME: 12:07 Consult Date/Type/Reason Admit Date/Time Sep 09, 2016 at 16:27 Subjective Comfortable no complaint Objective Lungs clear anteriorly Scalp incision clean dry intact Minimal assist Vital Signs Date Time Temp Pulse Resp B/P Pulse Ox O2 Delivery O2 Flow Rate FiO2 09/18/16 08:00 98.9 85 18 115/57 94 09/16/16 08:00 Room Air Intake and Output 09/17/16 09/17/16 09/18/16 15:00 23:00 07:00 Intake Total 640 ml Balance 640 ml Results/Medications Result Diagram: 09/17/16 0612 Results 24 hrs Laboratory Tests Test 09/17/16 12:11 09/17/16 17:23 09/17/16 21:04 09/18/16 07:54 Bedside Glucose 105 186 103 109 Test 09/18/16 10:24 Lab Scanned Report REFERENCE LAB Medications Current Medications Docusate Sodium (Colace) 100 mg BID PO Last administered on 09/17/16 09:12; Admin Dose 100 MG; Start 09/09/16 at 21:00 Senna (Senokot) 1 tab HS PO Last administered on 09/13/16 20:30; Admin Dose 1 TAB; Start 09/09/16 at 21:00 Acetaminophen (Tylenol Tab) 650 mg Q4H PRN PO PRN Last administered on 09:12; Admin Dose 650 MG; Start 09/09/16 at 19:00 Bisacodyl (Dulcolax Supp) 10 mg DAILY PRN [place] CONSTIPATION; Start 09/09/16 at 19: 00 Magnesium Hydroxide (Milk Of Mag) 30 ml BID PRN PO CONSTIPATION; Start 09/09/16 at 19:00 Lactulose (Enulose) 20 gm DAILY PRN PO CONSTIPATION Last administered on 09:09; Admin Dose 20 GM; Start 09/09/16 at 19:00 Metoclopramide HCl (Reglan) 10 mg Q6H PRN IV NAUSEA; Start 09/09/16 at 19:00 Multivitamins Therapeutic (Theragran) 1 tab DAILY PO Last administered on 09:20; Admin Dose 1 TAB; Start 09/10/16 at 09:00 Naloxone HCl (Narcan) 0.2 mg PRN PRN IV DECREASED REPIRATORY RATE; Start at 20:00 Ondansetron HCl (Zofran Inj) 2 mg Q6H PRN IV NAUSEA AND/OR VOMITING; Start 09/09 at 20:00 Pantoprazole (Protonix Tab) 40 mg DAILY@06 PO Last administered on 09/18/16 06 :06; Admin Dose 40 MG; Start 09/10/16 at 06:00 Tramadol HCl (Ultram) 50 mg Q4H PRN PO PAIN; Start 09/09/16 at 20:00 Acetaminophen (Tylenol Tab) 500 mg Q4H PRN PO PAIN; Start 09/09/16 at 20:00 Acetaminophen/ Hydrocodone Bitart ([place] (10/325)) 1 tab Q4H PRN PO PAIN Last administered on 09/18/16 09:21; Admin Dose 1 TAB; Start 09/09/16 at 20:00 Acetaminophen/ Hydrocodone Bitart ([place] (10/325)) 2 tab Q4H PRN PO PAIN; Start 09/09/16 at 20:00 Ferrous Sulfate (Ferrous Sulfate (Ec)) 325 mg TID PO Last administered on 09:20; Admin Dose 325 MG; Start 09/09/16 at 21:00 Miscellaneous Information 1 ea NOTE XX ; Start 09/09/16 at 20:30 Glucose (Glutose) 15 gm Q15M PRN PO DECREASED GLUCOSE; Start 09/09/16 at 20:30 Glucose (Glutose) 22.5 gm Q15M PRN PO DECREASED GLUCOSE; Start 09/09/16 at 20:30 Dextrose (D50w Syringe) 25 ml Q15M PRN IV DECREASED GLUCOSE; Start 09/09/16 at 20:30 Dextrose (D50w Syringe) 50 ml Q15M PRN IV DECREASED GLUCOSE; Start 09/09/16 at 20:30 Glucagon (Glucagen) 1 mg Q15M PRN IM DECREASED GLUCOSE; Start 09/09/16 at 20:30 Glucose (Glutose) 15 gm Q15M PRN BUCCAL DECREASED GLUCOSE; Start 09/09/16 at 20: 30 Atorvastatin Calcium (Lipitor) 40 mg HS PO Last administered on 09/17/16 21:08 ; Admin Dose 40 MG; Start 09/10/16 at 21:00 Eye Lubricant (Refresh Plus) 1 drop TID BOTH EYES Last administered on 21:07; Admin Dose 1 DROP; Start 09/12/16 at 21:00 Ascorbic Acid (Vitamin C) 250 mg BID PO Last administered on 09/18/16 09:20; Admin Dose 250 MG; Start 09/14/16 at 21:00 Zinc Sulfate (Zinc Sulfate) 220 mg DAILY PO Last administered on 09/18/16 09: 20; Admin Dose 220 MG; Start 09/15/16 at 09:00 Acyclovir (Zovirax) 800 mg TID PO Last administered on 09/18/16 09:20; Admin Dose 800 MG; Start 09/17/16 at 21:00; Stop 09/27/16 at 20:59 Assessment/Plan Additional Assessment/Plan Rehabilitation- 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
--- NOTE | 2016-09-18 18:02 | PN ---
Date/Time of Note Date/Time of Note DATE: 09/18/16 TIME: 17:56 Assessment/Plan VTE Prophylaxis VTE Prophylaxis Intervention: SCD's Lines/Catheters Urinary Cath still in place: No Assessment/Plan Chief Complaint/Hosp Course Patient status post adalberto removal, remains hemodynamically stable, continue to progress with physical and Occupational Therapy. Since patient is no longer on steroids change Accu-Chek to daily. Assessment/Plan - Left frontoparietal meningioma, status post resection. - Right lower extremities weakness secondary to meningioma, continue PT, OT. - Hyperlipidemia, continue Lipitor. - Hyperglycemia most likely secondary to steroids, resolved. - Buttocks rash with papules was culture positive for herpes infection, continue acyclovir. Further recommendations based on clinical course. Plan of care discussed with Dr. Singh. Problems: Exam/Review of Systems Vital Signs Vitals Vital Signs Date Time Temp Pulse Resp B/P Pulse Ox O2 Delivery O2 Flow Rate FiO2 09/18/16 08:00 98.9 85 18 115/57 94 09/16/16 08:00 Room Air Intake and Output 09/17/16 09/17/16 09/18/16 15:00 23:00 07:00 Intake Total 640 ml Balance 640 ml Exam Constitutional: alert, oriented Head: other (Status post surgery with intact incision) Respiratory: normal air movement Cardiovascular: nl pulses Gastrointestinal: non-tender, soft Musculoskeletal: other (Right upper and lower extremities weakness) Extremities: normal pulses Results Result Diagram: 09/17/16 0612 Results 24 hrs Laboratory Tests Test 09/17/16 21:04 09/18/16 07:54 09/18/16 10:24 09/18/16 12:13 Bedside Glucose 103 109 97 Lab Scanned Report REFERENCE LAB Test 09/18/16 17:33 Bedside Glucose 152 Medications Medications Current Medications Docusate Sodium (Colace) 100 mg BID PO Last administered on 09/17/16 09:12; Admin Dose 100 MG; Start 09/09/16 at 21:00 Senna (Senokot) 1 tab HS PO Last administered on 09/13/16 20:30; Admin Dose 1 TAB; Start 09/09/16 at 21:00 Acetaminophen (Tylenol Tab) 650 mg Q4H PRN PO PRN Last administered on 09:12; Admin Dose 650 MG; Start 09/09/16 at 19:00 Bisacodyl (Dulcolax Supp) 10 mg DAILY PRN [place] CONSTIPATION; Start 09/09/16 at 19: 00 Magnesium Hydroxide (Milk Of Mag) 30 ml BID PRN PO CONSTIPATION; Start 09/09/16 at 19:00 Lactulose (Enulose) 20 gm DAILY PRN PO CONSTIPATION Last administered on 09:09; Admin Dose 20 GM; Start 09/09/16 at 19:00 Metoclopramide HCl (Reglan) 10 mg Q6H PRN IV NAUSEA; Start 09/09/16 at 19:00 Multivitamins Therapeutic (Theragran) 1 tab DAILY PO Last administered on 09:20; Admin Dose 1 TAB; Start 09/10/16 at 09:00 Naloxone HCl (Narcan) 0.2 mg PRN PRN IV DECREASED REPIRATORY RATE; Start at 20:00 Ondansetron HCl (Zofran Inj) 2 mg Q6H PRN IV NAUSEA AND/OR VOMITING; Start 09/09 at 20:00 Pantoprazole (Protonix Tab) 40 mg DAILY@06 PO Last administered on 09/18/16 06 :06; Admin Dose 40 MG; Start 09/10/16 at 06:00 Tramadol HCl (Ultram) 50 mg Q4H PRN PO PAIN; Start 09/09/16 at 20:00 Acetaminophen (Tylenol Tab) 500 mg Q4H PRN PO PAIN; Start 09/09/16 at 20:00 Acetaminophen/ Hydrocodone Bitart ([place] (10/325)) 1 tab Q4H PRN PO PAIN Last administered on 09/18/16 09:21; Admin Dose 1 TAB; Start 09/09/16 at 20:00 Acetaminophen/ Hydrocodone Bitart ([place] (10/325)) 2 tab Q4H PRN PO PAIN; Start 09/09/16 at 20:00 Ferrous Sulfate (Ferrous Sulfate (Ec)) 325 mg TID PO Last administered on 12:56; Admin Dose 325 MG; Start 09/09/16 at 21:00 Miscellaneous Information 1 ea NOTE XX ; Start 09/09/16 at 20:30 Glucose (Glutose) 15 gm Q15M PRN PO DECREASED GLUCOSE; Start 09/09/16 at 20:30 Glucose (Glutose) 22.5 gm Q15M PRN PO DECREASED GLUCOSE; Start 09/09/16 at 20:30 Dextrose (D50w Syringe) 25 ml Q15M PRN IV DECREASED GLUCOSE; Start 09/09/16 at 20:30 Dextrose (D50w Syringe) 50 ml Q15M PRN IV DECREASED GLUCOSE; Start 09/09/16 at 20:30 Glucagon (Glucagen) 1 mg Q15M PRN IM DECREASED GLUCOSE; Start 09/09/16 at 20:30 Glucose (Glutose) 15 gm Q15M PRN BUCCAL DECREASED GLUCOSE; Start 09/09/16 at 20: 30 Atorvastatin Calcium (Lipitor) 40 mg HS PO Last administered on 09/17/16 21:08 ; Admin Dose 40 MG; Start 09/10/16 at 21:00 Eye Lubricant (Refresh Plus) 1 drop TID BOTH EYES Last administered on 12:56; Admin Dose 1 DROP; Start 09/12/16 at 21:00 Ascorbic Acid (Vitamin C) 250 mg BID PO Last administered on 09/18/16 09:20; Admin Dose 250 MG; Start 09/14/16 at 21:00 Zinc Sulfate (Zinc Sulfate) 220 mg DAILY PO Last administered on 09/18/16 09: 20; Admin Dose 220 MG; Start 09/15/16 at 09:00 Acyclovir (Zovirax) 800 mg TID PO Last administered on 09/18/16 12:56; Admin Dose 800 MG; Start 09/17/16 at 21:00; Stop 09/27/16 at 20:59 JOSÉ PEERZ Sep 18, 2016 18:02
--- NOTE | 2016-09-18 18:41 | CONS ---
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) - h/o frontoparietal meningioma s/p craniotomy for resection on 09/02/2016 - LE weakness recommendations - check BMP periodically while Pt's on acyclovir (ordered for tomorrow) - continue acyclovir (09/17/2016-), plan for 10 days or until all the lesions are dry management d/w Pt, her daughter and RN Problems: Consultation Date/Type/Reason Admit Date/Time Sep 09, 2016 at 16:27 Date of Consultation: Sep 18, 2016 Type of Consultation: ID Referring Provider: JOSÉ NATION Hx of Present Illness This is an 86 yo female who underwent L frontoparietal craniotomy for resection of meningioma at [facility] on 09/02/2016. Pt has had LE weakness and was transferred here for rehab. Pt reported pain in her buttock skin. Ulcers were noted, and their culture on 09/13/2016 identified the presence of herpes. Pt was started on PO acyclovir. KALEB Nation requested ID consultation on this Pt. Constitutional: No febrile Eyes: other (Left eye blind) ENT: no complaints Respiratory: no complaints Cardiovascular: no complaints Gastrointestinal: no complaints Genitourinary: no complaints Musculoskeletal: restricted range of motion (b/l LE) Skin: skin lesions (painful ulcers of buttock) Neurologic: focal-weakness (b/l LE) Psychological: confusion Past Medical History Medical History: diabetes, high cholesterol, other (cataract; Left knee DJD) Past Surgical History Past Surgical Hx: other (cataract surgery) Social History Alcohol Use: none Smoking Status: Never smoker Drug Use: none Exam/Review of Systems Vital Signs Vitals Vital Signs Date Time Temp Pulse Resp B/P Pulse Ox O2 Delivery O2 Flow Rate FiO2 09/18/16 08:00 98.9 85 18 115/57 94 09/16/16 08:00 Room Air Intake and Output 09/17/16 09/17/16 09/18/16 15:00 23:00 07:00 Intake Total 640 ml Balance 640 ml Exam Constitutional: alert, frail, oriented Psych: nl mood/affect, no complaints Head: normocephalic, other (s/p craniotomy) Eyes: nl conjunctiva, nl lids ENMT: nl external ears & nose, nl nasal mucosa & septum Neck: non-tender, supple Respiratory: clear to auscultation, normal air movement Cardiovascular: nl pulses, regular rate and rhythm Musculoskeletal: range of motion (limited below the waist) Extremities: No edema Skin: rash or lesions (a few ulcers on b/l buttock, no vesicles) Results Result Diagram: 09/17/16 0612 Results 24 hrs Laboratory Tests Test 09/17/16 21:04 09/18/16 07:54 09/18/16 10:24 09/18/16 12:13 Bedside Glucose 103 109 97 Lab Scanned Report REFERENCE LAB Test 09/18/16 17:33 Bedside Glucose 152 Medications Medications Current Medications Docusate Sodium (Colace) 100 mg BID PO Last administered on 09/17/16 09:12; Admin Dose 100 MG; Start 09/09/16 at 21:00 Senna (Senokot) 1 tab HS PO Last administered on 09/13/16 20:30; Admin Dose 1 TAB; Start 09/09/16 at 21:00 Acetaminophen (Tylenol Tab) 650 mg Q4H PRN PO PRN Last administered on 09:12; Admin Dose 650 MG; Start 09/09/16 at 19:00 Bisacodyl (Dulcolax Supp) 10 mg DAILY PRN SD CONSTIPATION; Start 09/09/16 at 19: 00 Magnesium Hydroxide (Milk Of Mag) 30 ml BID PRN PO CONSTIPATION; Start 09/09/16 at 19:00 Lactulose (Enulose) 20 gm DAILY PRN PO CONSTIPATION Last administered on 09:09; Admin Dose 20 GM; Start 09/09/16 at 19:00 Metoclopramide HCl (Reglan) 10 mg Q6H PRN IV NAUSEA; Start 09/09/16 at 19:00 Multivitamins Therapeutic (Theragran) 1 tab DAILY PO Last administered on 09:20; Admin Dose 1 TAB; Start 09/10/16 at 09:00 Naloxone HCl (Narcan) 0.2 mg PRN PRN IV DECREASED REPIRATORY RATE; Start at 20:00 Ondansetron HCl (Zofran Inj) 2 mg Q6H PRN IV NAUSEA AND/OR VOMITING; Start 09/09 at 20:00 Pantoprazole (Protonix Tab) 40 mg DAILY@06 PO Last administered on 09/18/16 06 :06; Admin Dose 40 MG; Start 09/10/16 at 06:00 Tramadol HCl (Ultram) 50 mg Q4H PRN PO PAIN; Start 09/09/16 at 20:00 Acetaminophen (Tylenol Tab) 500 mg Q4H PRN PO PAIN; Start 09/09/16 at 20:00 Acetaminophen/ Hydrocodone Bitart ([place] (10/325)) 1 tab Q4H PRN PO PAIN Last administered on 09/18/16 09:21; Admin Dose 1 TAB; Start 09/09/16 at 20:00 Acetaminophen/ Hydrocodone Bitart ([place] (10/325)) 2 tab Q4H PRN PO PAIN; Start 09/09/16 at 20:00 Ferrous Sulfate (Ferrous Sulfate (Ec)) 325 mg TID PO Last administered on 12:56; Admin Dose 325 MG; Start 09/09/16 at 21:00 Miscellaneous Information 1 ea NOTE XX ; Start 09/09/16 at 20:30 Glucose (Glutose) 15 gm Q15M PRN PO DECREASED GLUCOSE; Start 09/09/16 at 20:30 Glucose (Glutose) 22.5 gm Q15M PRN PO DECREASED GLUCOSE; Start 09/09/16 at 20:30 Dextrose (D50w Syringe) 25 ml Q15M PRN IV DECREASED GLUCOSE; Start 09/09/16 at 20:30 Dextrose (D50w Syringe) 50 ml Q15M PRN IV DECREASED GLUCOSE; Start 09/09/16 at 20:30 Glucagon (Glucagen) 1 mg Q15M PRN IM DECREASED GLUCOSE; Start 09/09/16 at 20:30 Glucose (Glutose) 15 gm Q15M PRN BUCCAL DECREASED GLUCOSE; Start 09/09/16 at 20: 30 Atorvastatin Calcium (Lipitor) 40 mg HS PO Last administered on 09/17/16 21:08 ; Admin Dose 40 MG; Start 09/10/16 at 21:00 Eye Lubricant (Refresh Plus) 1 drop TID BOTH EYES Last administered on 12:56; Admin Dose 1 DROP; Start 09/12/16 at 21:00 Ascorbic Acid (Vitamin C) 250 mg BID PO Last administered on 09/18/16 09:20; Admin Dose 250 MG; Start 09/14/16 at 21:00 Zinc Sulfate (Zinc Sulfate) 220 mg DAILY PO Last administered on 09/18/16 09: 20; Admin Dose 220 MG; Start 09/15/16 at 09:00 Acyclovir (Zovirax) 800 mg TID PO Last administered on 09/18/16 12:56; Admin Dose 800 MG; Start 09/17/16 at 21:00; Stop 09/27/16 at 20:59 MCKAY ROSAS M.D. Sep 18, 2016 18:40
[2016-09-18 20:00] VITALS: BP 101/57; RESP 20
[2016-09-18] MEDS: ATORVASTATIN 40 MG TAB PO SCH (20:56)
[2016-09-18] MEDS: SENNA TAB PO SCH (20:59)
[2016-09-19] MEDS: PANTOPRAZOLE (EC) 40 MG TAB PO SCH (06:22)
[2016-09-19 06:28] LABS: ADD SCAN DIFF NO
[2016-09-19 06:29] LABS: BASOPHILS % 0.4 % (0.0-2.0); EOSINOPHILS # 0.3 10^3/ul (0.0-0.5); EOSINOPHILS % 3.5 % (0.0-7.0); HEMOGLOBIN 10.7 g/dl (12.0-16.0); LYMPHOCYTES # 2.3 10^3/ul (0.8-2.9); LYMPHOCYTES % 26.2 % (15.0-51.0); MEAN CORPUSCULAR HEMOGLOBIN 29.4 pg (29.0-33.0); MEAN CORPUSCULAR HGB CONC 33.4 g/dl (32.0-37.0); MEAN CORPUSCULAR VOLUME 87.9 fl (82.0-101.0); MEAN PLATELET VOLUME 9.8 fl (7.4-10.4); MONOCYTE # 0.8 10^3/ul (0.3-0.9); MONOCYTES % 9.2 % (0.0-11.0); NEUTROPHIL # 5.4 10^3/ul (1.6-7.5); NEUTROPHILS % 60.3 % (39.0-77.0); PLATELET COUNT 194 10^3/UL (140-415); RED BLOOD COUNT 3.64 10^6/ul (4.20-5.40); RED CELL DISTRIBUTION WIDTH 15.2 % (11.5-14.5); WHITE BLOOD COUNT 8.9 10^3/ul (4.8-10.8)
[2016-09-19 07:18] LABS: ALBUMIN 3.1 g/dl (3.3-4.9); ALBUMIN/GLOBULIN RATIO 1.1; BILIRUBIN,INDIRECT 0.5 mg/dl (0-1.1); BILIRUBIN,TOTAL 0.5 mg/dl (0.2-1.3); CALCIUM 8.6 mg/dl (8.4-10.2); CREATININE 0.66 mg/dl (0.44-1.00); POTASSIUM 3.5 mmol/L (3.5-5.1); TOTAL PROTEIN 5.9 g/dl (6.1-8.1)
[2016-09-19] MEDS: Insulin NOVOLOG SS MODERATE Algorithm (SS with meals and bedtime) SC SCH ×3 (07:35→17:35)
[2016-09-19 07:47] VITALS: BP 117/57; RESP 18
[2016-09-19] MEDS: CARBOXYMETHYLCELLULOSE 0.5% 0.1 ML OPH BOTH EYES SCH ×3 (08:59→21:22)
[2016-09-19] MEDS: DOCUSATE SODIUM 100 MG CAP PO SCH ×2 (08:59→21:11)
[2016-09-19] MEDS: MULTIVITAMINS THERAPEUTIC TAB PO SCH (08:59)
[2016-09-19] MEDS: ZINC SULFATE 220 MG CAP PO SCH (08:59)
[2016-09-19] MEDS: ACYCLOVIR 800 MG TAB PO SCH ×3 (08:59→21:12)
[2016-09-19] MEDS: ASCORBIC ACID 250 MG TAB PO SCH ×2 (08:59→21:12)
[2016-09-19] MEDS: FERROUS SULFATE (EC) 325 MG TAB PO SCH ×3 (08:59→21:12)
--- NOTE | 2016-09-19 09:54 | CONS ---
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, no UTI symptoms per Pt - h/o frontoparietal meningioma s/p craniotomy for resection on 09/02/2016 - LE weakness recommendations - transaminitis: check hepatitis panel, acetoaminophen level, abdominal LAURA ( ordered) - check BMP periodically while Pt's on acyclovir (last checkeed 09/19/2016, GFR wnl) - continue acyclovir (09/17/2016-), plan for 10 days or until all the lesions are dry management d/w Pt, her RN Problems: Consultation Date/Type/Reason Admit Date/Time Sep 09, 2016 at 16:27 Initial Consult Date 09/18/16 Type of Consultation: ID Referring Provider: JOSÉ PEREZ 24 HR Interval Summary Constitutional: no complaints Detailed Summary Eyes: no complaints ENT: no complaints Respiratory: no complaints Cardiovascular: no complaints Gastrointestinal: no complaints Genitourinary: no complaints Musculoskeletal: restricted range of motion (LE weakness but able to walk with a walker slowly) Skin: skin lesions (ulcers of buttocks are painless according to Pt) Neurologic: focal-weakness (b/l LE) Exam/Review of Systems Vital Signs Vitals Vital Signs Date Time Temp Pulse Resp B/P Pulse Ox O2 Delivery O2 Flow Rate FiO2 09/19/16 07:47 98.4 71 18 117/57 95 09/16/16 08:00 Room Air Intake and Output 09/18/16 09/18/16 09/19/16 15:00 23:00 07:00 Intake Total 800 ml 360 ml Balance 800 ml 360 ml Exam Constitutional: frail Psych: nl mood/affect, no complaints Head: normocephalic Eyes: nl conjunctiva, nl lids ENMT: nl external ears & nose Neck: supple Respiratory: other (deferred as she was doing OT) Musculoskeletal: muscle weakness (restricted ROM of LE), No swelling Neurological: other (slow gait) Skin: other (deferred as Pt was doing OT) Results Result Diagram: 7/19/17 0617 7/19/17 0617 Results 24 hrs Laboratory Tests Test 09/18/16 10:24 09/18/16 12:13 09/18/16 17:33 09/18/16 20:55 Lab Scanned Report REFERENCE LAB Bedside Glucose 97 152 136 Test 09/19/16 06:17 09/19/16 07:49 White Blood Count 8.9 Red Blood Count 3.64 L Hemoglobin 10.7 L Hematocrit 32.0 L Mean Corpuscular Volume 87.9 Mean Corpuscular Hemoglobin 29.4 Mean Corpuscular Hemoglobin Concent 33.4 Red Cell Distribution Width 15.2 H Platelet Count 194 Mean Platelet Volume 9.8 Neutrophils % 60.3 Lymphocytes % 26.2 Monocytes % 9.2 Eosinophils % 3.5 Basophils % 0.4 Nucleated Red Blood Cells % 0.0 Neutrophils # 5.4 Lymphocytes # 2.3 Monocytes # 0.8 Eosinophils # 0.3 Basophils # 0.0 Nucleated Red Blood Cells # 0.0 Sodium Level 136 Potassium Level 3.5 Chloride Level 98 Carbon Dioxide Level 26 Anion Gap 16 Blood Urea Nitrogen 15 Creatinine 0.66 Glucose Level 92 Calcium Level 8.6 Total Bilirubin 0.5 Direct Bilirubin 0.00 Indirect Bilirubin 0.5 Aspartate Amino Transf (AST/SGOT) 198 H Alanine Aminotransferase (ALT/SGPT) 257 H Alkaline Phosphatase 111 Total Protein 5.9 L Albumin 3.1 L Globulin 2.80 Albumin/Globulin Ratio 1.10 Bedside Glucose 92 Medications Medications Current Medications Docusate Sodium (Colace) 100 mg BID PO Last administered on 09/19/16 08:59; Admin Dose 100 MG; Start 09/09/16 at 21:00 Senna (Senokot) 1 tab HS PO Last administered on 09/13/16 20:30; Admin Dose 1 TAB; Start 09/09/16 at 21:00 Acetaminophen (Tylenol Tab) 650 mg Q4H PRN PO PRN Last administered on 09:12; Admin Dose 650 MG; Start 09/09/16 at 19:00 Bisacodyl (Dulcolax Supp) 10 mg DAILY PRN [place] CONSTIPATION; Start 09/09/16 at 19: 00 Magnesium Hydroxide (Milk Of Mag) 30 ml BID PRN PO CONSTIPATION; Start 09/09/16 at 19:00 Lactulose (Enulose) 20 gm DAILY PRN PO CONSTIPATION Last administered on 09:09; Admin Dose 20 GM; Start 09/09/16 at 19:00 Metoclopramide HCl (Reglan) 10 mg Q6H PRN IV NAUSEA; Start 09/09/16 at 19:00 Multivitamins Therapeutic (Theragran) 1 tab DAILY PO Last administered on 08:59; Admin Dose 1 TAB; Start 09/10/16 at 09:00 Naloxone HCl (Narcan) 0.2 mg PRN PRN IV DECREASED REPIRATORY RATE; Start at 20:00 Ondansetron HCl (Zofran Inj) 2 mg Q6H PRN IV NAUSEA AND/OR VOMITING; Start 09/09 at 20:00 Pantoprazole (Protonix Tab) 40 mg DAILY@06 PO Last administered on 09/19/16 06 :22; Admin Dose 40 MG; Start 09/10/16 at 06:00 Tramadol HCl (Ultram) 50 mg Q4H PRN PO PAIN; Start 09/09/16 at 20:00 Acetaminophen (Tylenol Tab) 500 mg Q4H PRN PO PAIN; Start 09/09/16 at 20:00 Acetaminophen/ Hydrocodone Bitart ([place] (10/325)) 1 tab Q4H PRN PO PAIN Last administered on 09/18/16 09:21; Admin Dose 1 TAB; Start 09/09/16 at 20:00 Acetaminophen/ Hydrocodone Bitart ([place] (10/325)) 2 tab Q4H PRN PO PAIN; Start 09/09/16 at 20:00 Ferrous Sulfate (Ferrous Sulfate (Ec)) 325 mg TID PO Last administered on 08:59; Admin Dose 325 MG; Start 09/09/16 at 21:00 Miscellaneous Information 1 ea NOTE XX ; Start 09/09/16 at 20:30 Glucose (Glutose) 15 gm Q15M PRN PO DECREASED GLUCOSE; Start 09/09/16 at 20:30 Glucose (Glutose) 22.5 gm Q15M PRN PO DECREASED GLUCOSE; Start 09/09/16 at 20:30 Dextrose (D50w Syringe) 25 ml Q15M PRN IV DECREASED GLUCOSE; Start 09/09/16 at 20:30 Dextrose (D50w Syringe) 50 ml Q15M PRN IV DECREASED GLUCOSE; Start 09/09/16 at 20:30 Glucagon (Glucagen) 1 mg Q15M PRN IM DECREASED GLUCOSE; Start 09/09/16 at 20:30 Glucose (Glutose) 15 gm Q15M PRN BUCCAL DECREASED GLUCOSE; Start 09/09/16 at 20: 30 Atorvastatin Calcium (Lipitor) 40 mg HS PO Last administered on 09/18/16 20:56 ; Admin Dose 40 MG; Start 09/10/16 at 21:00 Eye Lubricant (Refresh Plus) 1 drop TID BOTH EYES Last administered on 20:57; Admin Dose 1 DROP; Start 09/12/16 at 21:00 Ascorbic Acid (Vitamin C) 250 mg BID PO Last administered on 09/19/16 08:59; Admin Dose 250 MG; Start 09/14/16 at 21:00 Zinc Sulfate (Zinc Sulfate) 220 mg DAILY PO Last administered on 09/19/16 08: 59; Admin Dose 220 MG; Start 09/15/16 at 09:00 Acyclovir (Zovirax) 800 mg TID PO Last administered on 09/19/16 08:59; Admin Dose 800 MG; Start 09/17/16 at 21:00; Stop 09/27/16 at 20:59 MCKAY ROSAS M.D. Sep 19, 2016 09:51
[2016-09-19 11:09] LABS: HAAIG REFLEX REFLEX FILED
--- NOTE | 2016-09-19 11:52 | CONS ---
Date/Time of Note Date/Time of Note DATE: 09/19/16 TIME: 11:52 Consult Date/Type/Reason Admit Date/Time Sep 09, 2016 at 16:27 Type of Consultation: ID Ordering Provider: JOSÉ PEREZ Objective Vital Signs Date Time Temp Pulse Resp B/P Pulse Ox O2 Delivery O2 Flow Rate FiO2 09/19/16 07:47 98.4 71 18 117/57 95 09/16/16 08:00 Room Air Intake and Output 09/18/16 09/18/16 09/19/16 15:00 23:00 07:00 Intake Total 800 ml 360 ml Balance 800 ml 360 ml Results/Medications Result Diagram: 09/19/16 0617 09/19/16 06 Results 24 hrs Laboratory Tests Test 09/18/16 12:13 09/18/16 17:33 09/18/16 20:55 09/19/16 06:17 Bedside Glucose 97 152 136 White Blood Count 8.9 Red Blood Count 3.64 L Hemoglobin 10.7 L Hematocrit 32.0 L Mean Corpuscular Volume 87.9 Mean Corpuscular Hemoglobin 29.4 Mean Corpuscular Hemoglobin Concent 33.4 Red Cell Distribution Width 15.2 H Platelet Count 194 Mean Platelet Volume 9.8 Neutrophils % 60.3 Lymphocytes % 26.2 Monocytes % 9.2 Eosinophils % 3.5 Basophils % 0.4 Nucleated Red Blood Cells % 0.0 Neutrophils # 5.4 Lymphocytes # 2.3 Monocytes # 0.8 Eosinophils # 0.3 Basophils # 0.0 Nucleated Red Blood Cells # 0.0 Sodium Level 136 Potassium Level 3.5 Chloride Level 98 Carbon Dioxide Level 26 Anion Gap 16 Blood Urea Nitrogen 15 Creatinine 0.66 Glucose Level 92 Calcium Level 8.6 Total Bilirubin 0.5 Direct Bilirubin 0.00 Indirect Bilirubin 0.5 Aspartate Amino Transf (AST/SGOT) 198 H Alanine Aminotransferase (ALT/SGPT) 257 H Alkaline Phosphatase 111 Total Protein 5.9 L Albumin 3.1 L Globulin 2.80 Albumin/Globulin Ratio 1.10 Test 09/19/16 07:49 09/19/16 11:00 Bedside Glucose 92 Acetaminophen Level < 10.0 L Hepatitis B Surface Antigen Pending Hepatitis B Core Total Antibody Pending Hepatitis C Antibody Pending Medications Current Medications Docusate Sodium (Colace) 100 mg BID PO Last administered on 09/19/16t 08:59; Admin Dose 100 MG; Start 09/09/16 at 21:00 Senna (Senokot) 1 tab HS PO Last administered on 09/13/16 20:30; Admin Dose 1 TAB; Start 09/09/16 at 21:00 Acetaminophen (Tylenol Tab) 650 mg Q4H PRN PO PRN Last administered on 09:12; Admin Dose 650 MG; Start 09/09/16 at 19:00 Bisacodyl (Dulcolax Supp) 10 mg DAILY PRN [place] CONSTIPATION; Start 09/09/16 at 19: 00 Magnesium Hydroxide (Milk Of Mag) 30 ml BID PRN PO CONSTIPATION; Start 09/09/16 at 19:00 Lactulose (Enulose) 20 gm DAILY PRN PO CONSTIPATION Last administered on 09:09; Admin Dose 20 GM; Start 09/09/16 at 19:00 Metoclopramide HCl (Reglan) 10 mg Q6H PRN IV NAUSEA; Start 09/09/16 at 19:00 Multivitamins Therapeutic (Theragran) 1 tab DAILY PO Last administered on 08:59; Admin Dose 1 TAB; Start 09/10/16 at 09:00 Naloxone HCl (Narcan) 0.2 mg PRN PRN IV DECREASED REPIRATORY RATE; Start at 20:00 Ondansetron HCl (Zofran Inj) 2 mg Q6H PRN IV NAUSEA AND/OR VOMITING; Start 09/09 at 20:00 Pantoprazole (Protonix Tab) 40 mg DAILY@06 PO Last administered on 09/19/16 06 :22; Admin Dose 40 MG; Start 09/10/16 at 06:00 Tramadol HCl (Ultram) 50 mg Q4H PRN PO PAIN; Start 09/09/16 at 20:00 Acetaminophen (Tylenol Tab) 500 mg Q4H PRN PO PAIN; Start 09/09/16 at 20:00 Acetaminophen/ Hydrocodone Bitart ([place] (10/325)) 1 tab Q4H PRN PO PAIN Last administered on 09/18/16 09:21; Admin Dose 1 TAB; Start 09/09/16 at 20:00 Acetaminophen/ Hydrocodone Bitart ([place] (10/325)) 2 tab Q4H PRN PO PAIN; Start 09/09/16 at 20:00 Ferrous Sulfate (Ferrous Sulfate (Ec)) 325 mg TID PO Last administered on 08:59; Admin Dose 325 MG; Start 09/09/16 at 21:00 Miscellaneous Information 1 ea NOTE XX ; Start 09/09/16 at 20:30 Glucose (Glutose) 15 gm Q15M PRN PO DECREASED GLUCOSE; Start 09/09/16 at 20:30 Glucose (Glutose) 22.5 gm Q15M PRN PO DECREASED GLUCOSE; Start 09/09/16 at 20:30 Dextrose (D50w Syringe) 25 ml Q15M PRN IV DECREASED GLUCOSE; Start 09/09/16 at 20:30 Dextrose (D50w Syringe) 50 ml Q15M PRN IV DECREASED GLUCOSE; Start 09/09/16 at 20:30 Glucagon (Glucagen) 1 mg Q15M PRN IM DECREASED GLUCOSE; Start 09/09/16 at 20:30 Glucose (Glutose) 15 gm Q15M PRN BUCCAL DECREASED GLUCOSE; Start 09/09/16 at 20: 30 Atorvastatin Calcium (Lipitor) 40 mg HS PO Last administered on 09/18/16 20:56 ; Admin Dose 40 MG; Start 09/10/16 at 21:00 Eye Lubricant (Refresh Plus) 1 drop TID BOTH EYES Last administered on 20:57; Admin Dose 1 DROP; Start 09/12/16 at 21:00 Ascorbic Acid (Vitamin C) 250 mg BID PO Last administered on 09/19/16 08:59; Admin Dose 250 MG; Start 09/14/16 at 21:00 Zinc Sulfate (Zinc Sulfate) 220 mg DAILY PO Last administered on 09/19/16 08: 59; Admin Dose 220 MG; Start 09/15/16 at 09:00 Acyclovir (Zovirax) 800 mg TID PO Last administered on 09/19/16 08:59; Admin Dose 800 MG; Start 09/17/16 at 21:00; Stop 09/27/16 at 20:59 JESSICA PATTERSON MD Sep 19, 2016 11:52
[2016-09-19 12:38] LABS: HEPATITIS B CORE ANTIBODY NEGATIVE (NEGATIVE)
--- NOTE | 2016-09-19 17:54 | RADRPT ---
PROCEDURE: US Abdomen and Retroperitoneum. CLINICAL INDICATION: Elevated liver enzymes. Abdominal pain. TECHNIQUE: Multiple real-time longitudinal and transverse images were acquired of the patient's ab domen and retroperitoneum utilizing a curved array transducer. COMPARISON: No prior studies are available for comparison. FINDINGS: The liver is normal in size and normal in echogenicity. The liver has a normal smooth surface. Ther e is a benign cyst in the right hepatic lobe anteriorly measuring 2.7 cm. There is no other focal h epatic lesion. Color Doppler and pulsed Doppler sonography demonstrate normal antegrade flow in the portal vein. The gallbladder is surgically absent. The bile ducts are normal with the common bile duct measuring 6.0 mm in diameter. The spleen is normal in size. There is no focal splenic lesion. The pancreas is partially seen and is unremarkable. There is no free fluid. The right kidney measures 7.3 cm and the left kidney measures 7.8 cm. There is no renal mass. Both kidneys are atrophic. There is no hydronephrosis or calculus. The abdominal aorta is not dilated. The inferior vena cava is unremarkable. IMPRESSION: 1. Benign cyst in the right hepatic lobe. 2. Status post cholecystectomy. 3. Bilateral atrophic kidneys. 4. Otherwise normal ultrasound of the abdomen and retroperitoneum. RPTAT: QQ .Alfa Borges MD, MD Date Time Electronically viewed and signed by .Alfa Borges MD, on 09/19/2016 17:54 .R/
--- NOTE | 2016-09-19 19:39 | PN ---
Date/Time of Note Date/Time of Note DATE: 09/19/16 TIME: 19:32 Assessment/Plan VTE Prophylaxis VTE Prophylaxis Intervention: SCD's Lines/Catheters Urinary Cath still in place: No Assessment/Plan Chief Complaint/Hosp Course Patient remains hemodynamically stable denies any nausea vomiting denies abdominal pain, per RN the lesions are improving. Assessment/Plan - Left frontoparietal meningioma, status post resection. - Right lower extremities weakness secondary to meningioma, continue PT, OT. - Hyperlipidemia, continue Lipitor. - Hyperglycemia most likely secondary to steroids, resolved. - Buttocks rash with papules with culture positive for herpes infection, continue acyclovir. Dr. Lew is following an infection disease consultation. - Transaminitis, hold Lipitor, Dr. Raymundo is asked to see patient in GI consultation. Further recommendations based on clinical course. Plan of care discussed with Dr. Singh. Problems: Exam/Review of Systems Vital Signs Vitals Vital Signs Date Time Temp Pulse Resp B/P Pulse Ox O2 Delivery O2 Flow Rate FiO2 09/19/16 07:47 98.4 71 18 117/57 95 09/16/16 08:00 Room Air Intake and Output 09/18/16 09/18/16 09/19/16 15:00 23:00 07:00 Intake Total 800 ml 360 ml Balance 800 ml 360 ml Exam Constitutional: alert, oriented Head: other (Status post surgery ) Respiratory: normal air movement Cardiovascular: nl pulses Gastrointestinal: non-tender, soft Musculoskeletal: other (Right upper and lower extremities weakness) Extremities: normal pulses Results Result Diagram: 09/19/1617 09/19/16 0617 Results 24 hrs Laboratory Tests Test 09/18/16 20:55 09/19/16 06:17 09/19/16 07:49 09/19/16 11:00 Bedside Glucose 136 92 White Blood Count 8.9 Red Blood Count 3.64 L Hemoglobin 10.7 L Hematocrit 32.0 L Mean Corpuscular Volume 87.9 Mean Corpuscular Hemoglobin 29.4 Mean Corpuscular Hemoglobin Concent 33.4 Red Cell Distribution Width 15.2 H Platelet Count 194 Mean Platelet Volume 9.8 Neutrophils % 60.3 Lymphocytes % 26.2 Monocytes % 9.2 Eosinophils % 3.5 Basophils % 0.4 Nucleated Red Blood Cells % 0.0 Neutrophils # 5.4 Lymphocytes # 2.3 Monocytes # 0.8 Eosinophils # 0.3 Basophils # 0.0 Nucleated Red Blood Cells # 0.0 Sodium Level 136 Potassium Level 3.5 Chloride Level 98 Carbon Dioxide Level 26 Anion Gap 16 Blood Urea Nitrogen 15 Creatinine 0.66 Glucose Level 92 Calcium Level 8.6 Total Bilirubin 0.5 Direct Bilirubin 0.00 Indirect Bilirubin 0.5 Aspartate Amino Transf (AST/SGOT) 198 H Alanine Aminotransferase (ALT/SGPT) 257 H Alkaline Phosphatase 111 Total Protein 5.9 L Albumin 3.1 L Globulin 2.80 Albumin/Globulin Ratio 1.10 Acetaminophen Level < 10.0 L Hepatitis B Surface Antigen NEGATIVE Hepatitis B Core Total Antibody NEGATIVE Hepatitis C Antibody NEGATIVE Test 09/19/16 12:13 09/19/16 17:23 Bedside Glucose 86 85 Medications Medications Current Medications Docusate Sodium (Colace) 100 mg BID PO Last administered on 09/19/16 08:59; Admin Dose 100 MG; Start 09/09/16 at 21:00 Senna (Senokot) 1 tab HS PO Last administered on 09/13/16 20:30; Admin Dose 1 TAB; Start 09/09/16 at 21:00 Acetaminophen (Tylenol Tab) 650 mg Q4H PRN PO PRN Last administered on 09:12; Admin Dose 650 MG; Start 09/09/16 at 19:00 Bisacodyl (Dulcolax Supp) 10 mg DAILY PRN [place] CONSTIPATION; Start 09/09/16 at 19: 00 Magnesium Hydroxide (Milk Of Mag) 30 ml BID PRN PO CONSTIPATION; Start 09/09/16 at 19:00 Lactulose (Enulose) 20 gm DAILY PRN PO CONSTIPATION Last administered on 09:09; Admin Dose 20 GM; Start 09/09/16 at 19:00 Metoclopramide HCl (Reglan) 10 mg Q6H PRN IV NAUSEA; Start 09/09/16 at 19:00 Multivitamins Therapeutic (Theragran) 1 tab DAILY PO Last administered on 08:59; Admin Dose 1 TAB; Start 09/10/16 at 09:00 Naloxone HCl (Narcan) 0.2 mg PRN PRN IV DECREASED REPIRATORY RATE; Start at 20:00 Ondansetron HCl (Zofran Inj) 2 mg Q6H PRN IV NAUSEA AND/OR VOMITING; Start 09/09 at 20:00 Pantoprazole (Protonix Tab) 40 mg DAILY@06 PO Last administered on 09/19/16 06 :22; Admin Dose 40 MG; Start 09/10/16 at 06:00 Tramadol HCl (Ultram) 50 mg Q4H PRN PO PAIN; Start 09/09/16 at 20:00 Acetaminophen (Tylenol Tab) 500 mg Q4H PRN PO PAIN; Start 09/09/16 at 20:00 Acetaminophen/ Hydrocodone Bitart ([place] (10/325)) 1 tab Q4H PRN PO PAIN Last administered on 09/18/16 09:21; Admin Dose 1 TAB; Start 09/09/16 at 20:00 Acetaminophen/ Hydrocodone Bitart ([place] (10/325)) 2 tab Q4H PRN PO PAIN; Start 09/09/16 at 20:00 Ferrous Sulfate (Ferrous Sulfate (Ec)) 325 mg TID PO Last administered on 08:59; Admin Dose 325 MG; Start 09/09/16 at 21:00 Miscellaneous Information 1 ea NOTE XX ; Start 09/09/16 at 20:30 Glucose (Glutose) 15 gm Q15M PRN PO DECREASED GLUCOSE; Start 09/09/16 at 20:30 Glucose (Glutose) 22.5 gm Q15M PRN PO DECREASED GLUCOSE; Start 09/09/16 at 20:30 Dextrose (D50w Syringe) 25 ml Q15M PRN IV DECREASED GLUCOSE; Start 09/09/16 at 20:30 Dextrose (D50w Syringe) 50 ml Q15M PRN IV DECREASED GLUCOSE; Start 09/09/16 at 20:30 Glucagon (Glucagen) 1 mg Q15M PRN IM DECREASED GLUCOSE; Start 09/09/16 at 20:30 Glucose (Glutose) 15 gm Q15M PRN BUCCAL DECREASED GLUCOSE; Start 09/09/16 at 20: 30 Atorvastatin Calcium (Lipitor) 40 mg HS PO Last administered on 09/18/16 20:56 ; Admin Dose 40 MG; Start 09/10/16 at 21:00 Eye Lubricant (Refresh Plus) 1 drop TID BOTH EYES Last administered on 20:57; Admin Dose 1 DROP; Start 09/12/16 at 21:00 Ascorbic Acid (Vitamin C) 250 mg BID PO Last administered on 09/19/16 08:59; Admin Dose 250 MG; Start 09/14/16 at 21:00 Zinc Sulfate (Zinc Sulfate) 220 mg DAILY PO Last administered on 09/19/16 08: 59; Admin Dose 220 MG; Start 09/15/16 at 09:00 Acyclovir (Zovirax) 800 mg TID PO Last administered on 09/19/16 08:59; Admin Dose 800 MG; Start 09/17/16 at 21:00; Stop 09/27/16 at 20:59 JOSÉ PEREZ Sep 19, 2016 19:39
[2016-09-19 20:04] VITALS: BP 118/70; RESP 18
[2016-09-19] MEDS: SENNA TAB PO SCH (21:11)
[2016-09-19] MEDS: ACETAMINOPHEN 325 MG TAB PO PRN (21:12)
[2016-09-20 02:00] VITALS: BP 109/56; RESP 18
[2016-09-20 06:26] LABS: ADD SCAN DIFF NO
[2016-09-20] MEDS: PANTOPRAZOLE (EC) 40 MG TAB PO SCH (06:28)
[2016-09-20 06:37] LABS: BASOPHIL # 0.1 10^3/ul (0.0-0.1); BASOPHILS % 1.2 % (0.0-2.0); EOSINOPHILS # 0.3 10^3/ul (0.0-0.5); HEMATOCRIT 34.7 % (37.0-47.0); HEMOGLOBIN 11.3 g/dl (12.0-16.0); LYMPHOCYTES # 1.7 10^3/ul (0.8-2.9); LYMPHOCYTES % 25.4 % (15.0-51.0); MEAN CORPUSCULAR HEMOGLOBIN 28.8 pg (29.0-33.0); MEAN CORPUSCULAR HGB CONC 32.6 g/dl (32.0-37.0); MEAN CORPUSCULAR VOLUME 88.5 fl (82.0-101.0); MEAN PLATELET VOLUME 9.9 fl (7.4-10.4); MONOCYTE # 0.7 10^3/ul (0.3-0.9); MONOCYTES % 9.9 % (0.0-11.0); NEUTROPHILS % 59.1 % (39.0-77.0); PLATELET COUNT 185 10^3/UL (140-415); RED BLOOD COUNT 3.92 10^6/ul (4.20-5.40); RED CELL DISTRIBUTION WIDTH 15.5 % (11.5-14.5); WHITE BLOOD COUNT 6.7 10^3/ul (4.8-10.8)
[2016-09-20 07:02] LABS: ALBUMIN 3.1 g/dl (3.3-4.9); ALBUMIN/GLOBULIN RATIO 1.03; BILIRUBIN,INDIRECT 0.5 mg/dl (0-1.1); BILIRUBIN,TOTAL 0.5 mg/dl (0.2-1.3); CALCIUM 8.8 mg/dl (8.4-10.2); CREATININE 0.63 mg/dl (0.44-1.00); POTASSIUM 3.4 mmol/L (3.5-5.1); TOTAL PROTEIN 6.1 g/dl (6.1-8.1)
[2016-09-20 07:30] VITALS: BP 131/65; RESP 20
[2016-09-20] MEDS: CARBOXYMETHYLCELLULOSE 0.5% 0.1 ML OPH BOTH EYES SCH ×3 (09:20→21:48)
[2016-09-20] MEDS: MULTIVITAMINS THERAPEUTIC TAB PO SCH (09:20)
[2016-09-20] MEDS: ACYCLOVIR 800 MG TAB PO SCH ×3 (09:20→21:50)
[2016-09-20] MEDS: ZINC SULFATE 220 MG CAP PO SCH (09:20)
[2016-09-20] MEDS: FERROUS SULFATE (EC) 325 MG TAB PO SCH ×3 (09:20→21:50)
[2016-09-20] MEDS: ASCORBIC ACID 250 MG TAB PO SCH ×2 (09:20→21:50)
[2016-09-20] MEDS: DOCUSATE SODIUM 100 MG CAP PO SCH ×2 (09:20→21:00)
--- NOTE | 2016-09-20 11:26 | CONS ---
Date/Time of Note Date/Time of Note DATE: 09/20/16 TIME: 11:26 Consult Date/Type/Reason Admit Date/Time Sep 09, 2016 at 16:27 Type of Consultation: ID Ordering Provider: JOSÉ PEREZ Subjective Family conference held with patient's daughter. Current functional status in addition to discharge planning reviewed. Daughter agreeable with discharge plan Objective Vital Signs Date Time Temp Pulse Resp B/P Pulse Ox O2 Delivery O2 Flow Rate FiO2 09/20/16 07:30 99.7 89 20 131/65 95 09/16/16 08:00 Room Air Intake and Output 09/19/16 09/19/16 09/20/16 15:00 23:00 07:00 Intake Total 640 ml 360 ml 300 ml Output Total 800 ml 550 ml Balance -160 ml 360 ml -250 ml Results/Medications Result Diagram: 09/20/16 0614 09/20/1614 Results 24 hrs Laboratory Tests Test 09/19/16 12:13 09/19/16 17:23 09/19/16 21:23 09/20/16 06:14 Bedside Glucose 86 85 84 White Blood Count 6.7 # Red Blood Count 3.92 L Hemoglobin 11.3 L Hematocrit 34.7 L Mean Corpuscular Volume 88.5 Mean Corpuscular Hemoglobin 28.8 L Mean Corpuscular Hemoglobin Concent 32.6 Red Cell Distribution Width 15.5 H Platelet Count 185 Mean Platelet Volume 9.9 Neutrophils % 59.1 Lymphocytes % 25.4 Monocytes % 9.9 Eosinophils % 4.0 Basophils % 1.2 Nucleated Red Blood Cells % 0.0 Neutrophils # 4.0 Lymphocytes # 1.7 Monocytes # 0.7 Eosinophils # 0.3 Basophils # 0.1 Nucleated Red Blood Cells # 0.0 Sodium Level 141 Potassium Level 3.4 L Chloride Level 99 Carbon Dioxide Level 29 Anion Gap 16 Blood Urea Nitrogen 12 Creatinine 0.63 Glucose Level 87 Calcium Level 8.8 Total Bilirubin 0.5 Direct Bilirubin 0.00 Indirect Bilirubin 0.5 Aspartate Amino Transf (AST/SGOT) 74 H Alanine Aminotransferase (ALT/SGPT) 162 H Alkaline Phosphatase 98 Total Protein 6.1 Albumin 3.1 L Globulin 3.00 Albumin/Globulin Ratio 1.03 Medications Current Medications Docusate Sodium (Colace) 100 mg BID PO Last administered on 09/20/16t 09:20; Admin Dose 100 MG; Start 7/9/17 at 21:00 Senna (Senokot) 1 tab HS PO Last administered on 09/19/16 21:11; Admin Dose 1 TAB; Start 09/09/16 at 21:00 Acetaminophen (Tylenol Tab) 650 mg Q4H PRN PO PRN Last administered on 21:12; Admin Dose 650 MG; Start 09/09/16 at 19:00 Bisacodyl (Dulcolax Supp) 10 mg DAILY PRN [place] CONSTIPATION; Start 09/09/16 at 19: 00 Magnesium Hydroxide (Milk Of Mag) 30 ml BID PRN PO CONSTIPATION; Start 09/09/16 at 19:00 Lactulose (Enulose) 20 gm DAILY PRN PO CONSTIPATION Last administered on 09:09; Admin Dose 20 GM; Start 09/09/16 at 19:00 Metoclopramide HCl (Reglan) 10 mg Q6H PRN IV NAUSEA; Start 09/09/16 at 19:00 Multivitamins Therapeutic (Theragran) 1 tab DAILY PO Last administered on 09:20; Admin Dose 1 TAB; Start 09/10/16 at 09:00 Naloxone HCl (Narcan) 0.2 mg PRN PRN IV DECREASED REPIRATORY RATE; Start at 20:00 Ondansetron HCl (Zofran Inj) 2 mg Q6H PRN IV NAUSEA AND/OR VOMITING; Start 09/09 at 20:00 Pantoprazole (Protonix Tab) 40 mg DAILY@06 PO Last administered on 09/20/16 06 :28; Admin Dose 40 MG; Start 09/10/16 at 06:00 Tramadol HCl (Ultram) 50 mg Q4H PRN PO PAIN; Start 09/09/16 at 20:00 Acetaminophen (Tylenol Tab) 500 mg Q4H PRN PO PAIN; Start 09/09/16 at 20:00 Acetaminophen/ Hydrocodone Bitart ([place] (10/325)) 1 tab Q4H PRN PO PAIN Last administered on 09/18/16 09:21; Admin Dose 1 TAB; Start 09/09/16 at 20:00 Acetaminophen/ Hydrocodone Bitart ([place] (10/325)) 2 tab Q4H PRN PO PAIN; Start 09/09/16 at 20:00 Ferrous Sulfate (Ferrous Sulfate (Ec)) 325 mg TID PO Last administered on 09:20; Admin Dose 325 MG; Start 09/09/16 at 21:00 Miscellaneous Information 1 ea NOTE XX ; Start 09/09/16 at 20:30 Glucose (Glutose) 15 gm Q15M PRN PO DECREASED GLUCOSE; Start 09/09/16 at 20:30 Glucose (Glutose) 22.5 gm Q15M PRN PO DECREASED GLUCOSE; Start 09/09/16 at 20:30 Dextrose (D50w Syringe) 25 ml Q15M PRN IV DECREASED GLUCOSE; Start 09/09/16 at 20:30 Dextrose (D50w Syringe) 50 ml Q15M PRN IV DECREASED GLUCOSE; Start 09/09/16 at 20:30 Glucagon (Glucagen) 1 mg Q15M PRN IM DECREASED GLUCOSE; Start 09/09/16 at 20:30 Glucose (Glutose) 15 gm Q15M PRN BUCCAL DECREASED GLUCOSE; Start 09/09/16 at 20: 30 Atorvastatin Calcium (Lipitor) 40 mg HS PO Last administered on 09/18/16 20:56 ; Admin Dose 40 MG; Start 09/10/16 at 21:00; Status Future Hold Eye Lubricant (Refresh Plus) 1 drop TID BOTH EYES Last administered on 09:20; Admin Dose 1 DROP; Start 09/12/16 at 21:00 Ascorbic Acid (Vitamin C) 250 mg BID PO Last administered on 09/20/16 09:20; Admin Dose 250 MG; Start 09/14/16 at 21:00 Zinc Sulfate (Zinc Sulfate) 220 mg DAILY PO Last administered on 09/20/16 09: 20; Admin Dose 220 MG; Start 09/15/16 at 09:00 Acyclovir (Zovirax) 800 mg TID PO Last administered on 09/20/16 09:20; Admin Dose 800 MG; Start 09/17/16 at 21:00; Stop 09/27/16 at 20:59 Assessment/Plan Additional Assessment/Plan Rehabilitation- 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
--- NOTE | 2016-09-20 16:28 | CONS ---
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 Waller. Problems: Consultation Date/Type/Reason Admit Date/Time Sep 09, 2016 at 16:27 Initial Consult Date 09/18/16 Type of Consultation: Infectious Disease Referring Provider: JOSÉ PEREZ 24 HR Interval Summary Free Text/Dictation Denies pain, SOB, n/v/d. No new/acute issues per d/w nursing staff; working with PT. Exam/Review of Systems Vital Signs Vitals Vital Signs Date Time Temp Pulse Resp B/P Pulse Ox O2 Delivery O2 Flow Rate FiO2 09/20/16 07:30 99.7 89 20 131/65 95 09/16/16 08:00 Room Air Intake and Output 09/19/16 09/19/16 09/20/16 15:00 23:00 07:00 Intake Total 640 ml 360 ml 300 ml Output Total 800 ml 550 ml Balance -160 ml 360 ml -250 ml Exam Constitutional: alert, well developed Head: normocephalic, other (Scalp incision healing well (adalberto removed)) ENMT: nl external ears & nose Neck: supple Respiratory: clear to auscultation, normal air movement Cardiovascular: nl pulses, regular rate and rhythm Gastrointestinal: non-tender, soft Musculoskeletal: muscle weakness (restricted ROM of LE) Extremities: normal pulses Neurological: nl speech Skin: nl turgor, rash or lesions (see skin assessment and photo in chart for details) Results Result Diagram: 09/20/16 0614 09/20/16 0614 Results 24 hrs Laboratory Tests Test 09/19/16 17:23 09/19/16 21:23 09/20/16 06:14 Bedside Glucose 85 84 White Blood Count 6.7 # Red Blood Count 3.92 L Hemoglobin 11.3 L Hematocrit 34.7 L Mean Corpuscular Volume 88.5 Mean Corpuscular Hemoglobin 28.8 L Mean Corpuscular Hemoglobin Concent 32.6 Red Cell Distribution Width 15.5 H Platelet Count 185 Mean Platelet Volume 9.9 Neutrophils % 59.1 Lymphocytes % 25.4 Monocytes % 9.9 Eosinophils % 4.0 Basophils % 1.2 Nucleated Red Blood Cells % 0.0 Neutrophils # 4.0 Lymphocytes # 1.7 Monocytes # 0.7 Eosinophils # 0.3 Basophils # 0.1 Nucleated Red Blood Cells # 0.0 Sodium Level 141 Potassium Level 3.4 L Chloride Level 99 Carbon Dioxide Level 29 Anion Gap 16 Blood Urea Nitrogen 12 Creatinine 0.63 Glucose Level 87 Calcium Level 8.8 Total Bilirubin 0.5 Direct Bilirubin 0.00 Indirect Bilirubin 0.5 Aspartate Amino Transf (AST/SGOT) 74 H Alanine Aminotransferase (ALT/SGPT) 162 H Alkaline Phosphatase 98 Total Protein 6.1 Albumin 3.1 L Globulin 3.00 Albumin/Globulin Ratio 1.03 Medications Medications Current Medications Docusate Sodium (Colace) 100 mg BID PO Last administered on 09/20/16 09:20; Admin Dose 100 MG; Start 09/09/16 at 21:00 Senna (Senokot) 1 tab HS PO Last administered on 09/19/16 21:11; Admin Dose 1 TAB; Start 09/09/16 at 21:00 Acetaminophen (Tylenol Tab) 650 mg Q4H PRN PO PRN Last administered on 21:12; Admin Dose 650 MG; Start 09/09/16 at 19:00 Bisacodyl (Dulcolax Supp) 10 mg DAILY PRN [place] CONSTIPATION; Start 09/09/16 at 19: 00 Magnesium Hydroxide (Milk Of Mag) 30 ml BID PRN PO CONSTIPATION; Start 09/09/16 at 19:00 Lactulose (Enulose) 20 gm DAILY PRN PO CONSTIPATION Last administered on 09:09; Admin Dose 20 GM; Start 09/09/16 at 19:00 Metoclopramide HCl (Reglan) 10 mg Q6H PRN IV NAUSEA; Start 09/09/16 at 19:00 Multivitamins Therapeutic (Theragran) 1 tab DAILY PO Last administered on 09:20; Admin Dose 1 TAB; Start 09/10/16 at 09:00 Naloxone HCl (Narcan) 0.2 mg PRN PRN IV DECREASED REPIRATORY RATE; Start at 20:00 Ondansetron HCl (Zofran Inj) 2 mg Q6H PRN IV NAUSEA AND/OR VOMITING; Start 09/09 at 20:00 Pantoprazole (Protonix Tab) 40 mg DAILY@06 PO Last administered on 09/20/16 06 :28; Admin Dose 40 MG; Start 09/10/16 at 06:00 Tramadol HCl (Ultram) 50 mg Q4H PRN PO PAIN; Start 09/09/16 at 20:00 Acetaminophen (Tylenol Tab) 500 mg Q4H PRN PO PAIN; Start 09/09/16 at 20:00 Acetaminophen/ Hydrocodone Bitart ([place] (10/325)) 1 tab Q4H PRN PO PAIN Last administered on 09/18/16 09:21; Admin Dose 1 TAB; Start 09/09/16 at 20:00 Acetaminophen/ Hydrocodone Bitart ([place] (10/325)) 2 tab Q4H PRN PO PAIN; Start 09/09/16 at 20:00 Ferrous Sulfate (Ferrous Sulfate (Ec)) 325 mg TID PO Last administered on 12:40; Admin Dose 325 MG; Start 09/09/16 at 21:00 Miscellaneous Information 1 ea NOTE XX ; Start 09/09/16 at 20:30 Glucose (Glutose) 15 gm Q15M PRN PO DECREASED GLUCOSE; Start 09/09/16 at 20:30 Glucose (Glutose) 22.5 gm Q15M PRN PO DECREASED GLUCOSE; Start 09/09/16 at 20:30 Dextrose (D50w Syringe) 25 ml Q15M PRN IV DECREASED GLUCOSE; Start 09/09/16 at 20:30 Dextrose (D50w Syringe) 50 ml Q15M PRN IV DECREASED GLUCOSE; Start 09/09/16 at 20:30 Glucagon (Glucagen) 1 mg Q15M PRN IM DECREASED GLUCOSE; Start 09/09/16 at 20:30 Glucose (Glutose) 15 gm Q15M PRN BUCCAL DECREASED GLUCOSE; Start 09/09/16 at 20: 30 Atorvastatin Calcium (Lipitor) 40 mg HS PO Last administered on 09/18/16 20:56 ; Admin Dose 40 MG; Start 09/10/16 at 21:00; Status Future Hold Eye Lubricant (Refresh Plus) 1 drop TID BOTH EYES Last administered on 12:40; Admin Dose 1 DROP; Start 09/12/16 at 21:00 Ascorbic Acid (Vitamin C) 250 mg BID PO Last administered on 09/20/16 09:20; Admin Dose 250 MG; Start 09/14/16 at 21:00 Zinc Sulfate (Zinc Sulfate) 220 mg DAILY PO Last administered on 09/20/16 09: 20; Admin Dose 220 MG; Start 09/15/16 at 09:00 Acyclovir (Zovirax) 800 mg TID PO Last administered on 09/20/16 12:40; Admin Dose 800 MG; Start 09/17/16 at 21:00; Stop 09/27/16 at 20:59 Procedures Procedures Abdomen US 09/19/16: 1. Benign cyst in the right hepatic lobe. 2. Status post cholecystectomy. 3. Bilateral atrophic kidneys. 4. Otherwise normal ultrasound of the abdomen and retroperitoneum. MCKAY WALLER M.D. 09/21/16 1106: Assessment/Plan Assessment/Plan Additional Assessment/Plan Sridhar attestation: I discussed the management with KALEB Alexandre and agree with above Exam/Review of Systems Results Result Diagram: 09/20/16 0614 09/20/16 0614 OBDULIO ALEXANDRE NP Sep 20, 2016 16:27 MCKAY WALLER M.D. Sep 21, 2016 11:06
[2016-09-20] MEDS ORDERED: POTASSIUM CHLORIDE (SR) 20 MEQ TAB PO STA (18:13)
--- NOTE | 2016-09-20 18:15 | PN ---
Date/Time of Note Date/Time of Note DATE: 09/20/16 TIME: 18:06 Assessment/Plan VTE Prophylaxis VTE Prophylaxis Intervention: other Lines/Catheters Urinary Cath still in place: No Assessment/Plan Assessment/Plan -Hypokalemia- K 34, replace K, BMP am. - Left frontoparietal meningioma, status post resection. - Right lower extremities weakness secondary to meningioma, continue PT, OT. - Hyperlipidemia, continue Lipitor. - Hyperglycemia most likely secondary to steroids, resolved. - Buttocks rash with papules with culture positive for herpes infection, continue acyclovir. Dr. Lew is following an infection disease consultation. - Transaminitis, hold Lipitor, Dr. Raymundo is asked to see patient in GI consultation. Further recommendations based on clinical course. Plan of care discussed with Dr. Singh. Subjective 24 Hr Interval Summary Free Text/Dictation sitting up in chair, remains hemodynamically stable, feels better denies any nausea vomiting denies abdominal pain, per RN the lesions are improving, tolerating therapy. N new events reported last night. Respiratory: no complaints Cardiovascular: no complaints Gastrointestinal: no complaints Genitourinary: no complaints Musculoskeletal: no complaints Exam/Review of Systems Vital Signs Vitals Vital Signs Date Time Temp Pulse Resp B/P Pulse Ox O2 Delivery O2 Flow Rate FiO2 09/20/16 07:30 99.7 89 20 131/65 95 09/16/16 08:00 Room Air Intake and Output 09/19/16 09/19/16 09/20/16 15:00 23:00 07:00 Intake Total 640 ml 360 ml 300 ml Output Total 800 ml 550 ml Balance -160 ml 360 ml -250 ml Exam Constitutional: alert, well developed Psych: nl mood/affect Respiratory: clear to auscultation, normal air movement Cardiovascular: nl pulses, regular rate and rhythm Gastrointestinal: non-tender, soft Musculoskeletal: nl extremities to inspection Neurological: nl speech Results Result Diagram: 09/20/16 0614 09/20/16 0614 Results 24 hrs Laboratory Tests Test 09/19/16 21:23 09/20/16 06:14 Bedside Glucose 84 White Blood Count 6.7 # Red Blood Count 3.92 L Hemoglobin 11.3 L Hematocrit 34.7 L Mean Corpuscular Volume 88.5 Mean Corpuscular Hemoglobin 28.8 L Mean Corpuscular Hemoglobin Concent 32.6 Red Cell Distribution Width 15.5 H Platelet Count 185 Mean Platelet Volume 9.9 Neutrophils % 59.1 Lymphocytes % 25.4 Monocytes % 9.9 Eosinophils % 4.0 Basophils % 1.2 Nucleated Red Blood Cells % 0.0 Neutrophils # 4.0 Lymphocytes # 1.7 Monocytes # 0.7 Eosinophils # 0.3 Basophils # 0.1 Nucleated Red Blood Cells # 0.0 Sodium Level 141 Potassium Level 3.4 L Chloride Level 99 Carbon Dioxide Level 29 Anion Gap 16 Blood Urea Nitrogen 12 Creatinine 0.63 Glucose Level 87 Calcium Level 8.8 Total Bilirubin 0.5 Direct Bilirubin 0.00 Indirect Bilirubin 0.5 Aspartate Amino Transf (AST/SGOT) 74 H Alanine Aminotransferase (ALT/SGPT) 162 H Alkaline Phosphatase 98 Total Protein 6.1 Albumin 3.1 L Globulin 3.00 Albumin/Globulin Ratio 1.03 Medications Medications Current Medications Docusate Sodium (Colace) 100 mg BID PO Last administered on 09/20/16 09:20; Admin Dose 100 MG; Start 09/09/16 at 21:00 Senna (Senokot) 1 tab HS PO Last administered on 09/19/16 21:11; Admin Dose 1 TAB; Start 09/09/16 at 21:00 Acetaminophen (Tylenol Tab) 650 mg Q4H PRN PO PRN Last administered on 21:12; Admin Dose 650 MG; Start 09/09/16 at 19:00 Bisacodyl (Dulcolax Supp) 10 mg DAILY PRN [place] CONSTIPATION; Start 09/09/16 at 19: 00 Magnesium Hydroxide (Milk Of Mag) 30 ml BID PRN PO CONSTIPATION; Start 09/09/16 at 19:00 Lactulose (Enulose) 20 gm DAILY PRN PO CONSTIPATION Last administered on 09:09; Admin Dose 20 GM; Start 09/09/16 at 19:00 Metoclopramide HCl (Reglan) 10 mg Q6H PRN IV NAUSEA; Start 09/09/16 at 19:00 Multivitamins Therapeutic (Theragran) 1 tab DAILY PO Last administered on 09:20; Admin Dose 1 TAB; Start 09/10/16 at 09:00 Naloxone HCl (Narcan) 0.2 mg PRN PRN IV DECREASED REPIRATORY RATE; Start at 20:00 Ondansetron HCl (Zofran Inj) 2 mg Q6H PRN IV NAUSEA AND/OR VOMITING; Start 09/09 at 20:00 Pantoprazole (Protonix Tab) 40 mg DAILY@06 PO Last administered on 09/20/16 06 :28; Admin Dose 40 MG; Start 09/10/16 at 06:00 Tramadol HCl (Ultram) 50 mg Q4H PRN PO PAIN; Start 09/09/16 at 20:00 Acetaminophen (Tylenol Tab) 500 mg Q4H PRN PO PAIN; Start 09/09/16 at 20:00 Acetaminophen/ Hydrocodone Bitart ([place] (10/325)) 1 tab Q4H PRN PO PAIN Last administered on 09/18/16 09:21; Admin Dose 1 TAB; Start 09/09/16 at 20:00 Acetaminophen/ Hydrocodone Bitart ([place] (10/325)) 2 tab Q4H PRN PO PAIN; Start 09/09/16 at 20:00 Ferrous Sulfate (Ferrous Sulfate (Ec)) 325 mg TID PO Last administered on 12:40; Admin Dose 325 MG; Start 09/09/16 at 21:00 Miscellaneous Information 1 ea NOTE XX ; Start 09/09/16 at 20:30 Glucose (Glutose) 15 gm Q15M PRN PO DECREASED GLUCOSE; Start 09/09/16 at 20:30 Glucose (Glutose) 22.5 gm Q15M PRN PO DECREASED GLUCOSE; Start 09/09/16 at 20:30 Dextrose (D50w Syringe) 25 ml Q15M PRN IV DECREASED GLUCOSE; Start 09/09/16 at 20:30 Dextrose (D50w Syringe) 50 ml Q15M PRN IV DECREASED GLUCOSE; Start 09/09/16 at 20:30 Glucagon (Glucagen) 1 mg Q15M PRN IM DECREASED GLUCOSE; Start 09/09/16 at 20:30 Glucose (Glutose) 15 gm Q15M PRN BUCCAL DECREASED GLUCOSE; Start 09/09/16 at 20: 30 Atorvastatin Calcium (Lipitor) 40 mg HS PO Last administered on 09/18/16 20:56 ; Admin Dose 40 MG; Start 09/10/16 at 21:00; Status Future Hold Eye Lubricant (Refresh Plus) 1 drop TID BOTH EYES Last administered on 12:40; Admin Dose 1 DROP; Start 09/12/16 at 21:00 Ascorbic Acid (Vitamin C) 250 mg BID PO Last administered on 09/20/16 09:20; Admin Dose 250 MG; Start 09/14/16 at 21:00 Zinc Sulfate (Zinc Sulfate) 220 mg DAILY PO Last administered on 09/20/16 09: 20; Admin Dose 220 MG; Start 09/15/16 at 09:00 Acyclovir (Zovirax) 800 mg TID PO Last administered on 09/20/16 12:40; Admin Dose 800 MG; Start 09/17/16 at 21:00; Stop 09/27/16 at 20:59 KRISSY WILKINSON Sep 20, 2016 18:14
[2016-09-20 19:39] VITALS: BP 146/65; RESP 20
[2016-09-20] MEDS: SENNA TAB PO SCH (21:00)
[2016-09-21 01:58] VITALS: BP 101/52; RESP 20
[2016-09-21] MEDS: PANTOPRAZOLE (EC) 40 MG TAB PO SCH (06:29)
[2016-09-21 07:19] LABS: ADD SCAN DIFF NO
[2016-09-21 07:22] LABS: BASOPHIL # 0.1 10^3/ul (0.0-0.1); EOSINOPHILS # 0.2 10^3/ul (0.0-0.5); EOSINOPHILS % 2.6 % (0.0-7.0); HEMATOCRIT 33.6 % (37.0-47.0); HEMOGLOBIN 11.3 g/dl (12.0-16.0); LYMPHOCYTES # 2.5 10^3/ul (0.8-2.9); LYMPHOCYTES % 32.6 % (15.0-51.0); MEAN CORPUSCULAR HEMOGLOBIN 29.3 pg (29.0-33.0); MEAN CORPUSCULAR HGB CONC 33.6 g/dl (32.0-37.0); MONOCYTE # 0.7 10^3/ul (0.3-0.9); MONOCYTES % 8.7 % (0.0-11.0); NEUTROPHIL # 4.2 10^3/ul (1.6-7.5); NEUTROPHILS % 54.6 % (39.0-77.0); PLATELET COUNT 184 10^3/UL (140-415); RED BLOOD COUNT 3.86 10^6/ul (4.20-5.40); RED CELL DISTRIBUTION WIDTH 15.1 % (11.5-14.5); WHITE BLOOD COUNT 7.7 10^3/ul (4.8-10.8)
[2016-09-21 07:49] LABS: CALCIUM 8.7 mg/dl (8.4-10.2); CREATININE 0.6 mg/dl (0.44-1.00); POTASSIUM 3.4 mmol/L (3.5-5.1)
[2016-09-21] MEDS: MULTIVITAMINS THERAPEUTIC TAB PO SCH (08:46)
[2016-09-21] MEDS: ZINC SULFATE 220 MG CAP PO SCH (08:46)
[2016-09-21] MEDS: FERROUS SULFATE (EC) 325 MG TAB PO SCH ×2 (08:46→12:18)
[2016-09-21] MEDS: ASCORBIC ACID 250 MG TAB PO SCH (08:46)
[2016-09-21] MEDS: ACYCLOVIR 800 MG TAB PO SCH ×2 (08:46→12:20)
[2016-09-21] MEDS: DOCUSATE SODIUM 100 MG CAP PO SCH (08:47)
[2016-09-21] MEDS: CARBOXYMETHYLCELLULOSE 0.5% 0.1 ML OPH BOTH EYES SCH ×2 (11:26→12:18)
--- NOTE | 2016-09-21 11:40 | CONS ---
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 I instructed Pt to f/u with her PMD and repeat LFTs as outpatient Management d/w patient, her daughter Problems: Consultation Date/Type/Reason Admit Date/Time Sep 09, 2016 at 16:27 Initial Consult Date 09/18/16 Type of Consultation: Infectious Disease Referring Provider: JOSÉ PEREZ 24 HR Interval Summary Constitutional: no complaints Detailed Summary Eyes: no complaints ENT: no complaints Respiratory: no complaints Cardiovascular: no complaints Gastrointestinal: no complaints Genitourinary: no complaints Musculoskeletal: restricted range of motion (due to recent craniotomy) Skin: no complaints Neurologic: other (same as above) Exam/Review of Systems Vital Signs Vitals Vital Signs Date Time Temp Pulse Resp B/P Pulse Ox O2 Delivery O2 Flow Rate FiO2 09/21/16 01:58 98.9 81 20 101/52 95 Intake and Output 09/20/16 09/20/16 09/21/16 14:59 22:59 06:59 Intake Total 550 ml 970 ml 300 ml Output Total 351 ml Balance 550 ml 970 ml -51 ml Exam Constitutional: frail Head: atraumatic, normocephalic Eyes: nl conjunctiva, nl lids ENMT: nl external ears & nose Neck: supple Musculoskeletal: range of motion (limited in her LEs) Extremities: No edema Neurological: OSTEOPATHY DOCTOR II-XII intact, nl mental status, nl speech Skin: other (three superficial herpetic ulcers are dry) Results Result Diagram: 09/21/16 0633 09/21/16 0633 Results 24 hrs Laboratory Tests Test 09/20/16 21:54 09/21/16 06:33 Bedside Glucose 127 White Blood Count 7.7 Red Blood Count 3.86 L Hemoglobin 11.3 L Hematocrit 33.6 L Mean Corpuscular Volume 87.0 Mean Corpuscular Hemoglobin 29.3 Mean Corpuscular Hemoglobin Concent 33.6 Red Cell Distribution Width 15.1 H Platelet Count 184 Mean Platelet Volume 10.0 Neutrophils % 54.6 Lymphocytes % 32.6 Monocytes % 8.7 Eosinophils % 2.6 Basophils % 1.0 Neutrophils # 4.2 Lymphocytes # 2.5 Monocytes # 0.7 Eosinophils # 0.2 Basophils # 0.1 Nucleated Red Blood Cells # 0.0 Sodium Level 138 Potassium Level 3.4 L Chloride Level 98 Carbon Dioxide Level 27 Anion Gap 16 Blood Urea Nitrogen 11 Creatinine 0.60 Glucose Level 97 Calcium Level 8.7 Medications Medications Current Medications Docusate Sodium (Colace) 100 mg BID PO Last administered on 09/20/16 09:20; Admin Dose 100 MG; Start 09/09/16 at 21:00 Senna (Senokot) 1 tab HS PO Last administered on 09/19/16 21:11; Admin Dose 1 TAB; Start 09/09/16 at 21:00 Acetaminophen (Tylenol Tab) 650 mg Q4H PRN PO PRN Last administered on 21:12; Admin Dose 650 MG; Start 09/09/16 at 19:00 Bisacodyl (Dulcolax Supp) 10 mg DAILY PRN [place] CONSTIPATION; Start 09/09/16 at 19: 00 Magnesium Hydroxide (Milk Of Mag) 30 ml BID PRN PO CONSTIPATION; Start 09/09/16 at 19:00 Lactulose (Enulose) 20 gm DAILY PRN PO CONSTIPATION Last administered on 09:09; Admin Dose 20 GM; Start 09/09/16 at 19:00 Metoclopramide HCl (Reglan) 10 mg Q6H PRN IV NAUSEA; Start 09/09/16 at 19:00 Multivitamins Therapeutic (Theragran) 1 tab DAILY PO Last administered on 08:46; Admin Dose 1 TAB; Start 09/10/16 at 09:00 Naloxone HCl (Narcan) 0.2 mg PRN PRN IV DECREASED REPIRATORY RATE; Start at 20:00 Ondansetron HCl (Zofran Inj) 2 mg Q6H PRN IV NAUSEA AND/OR VOMITING; Start 09/09 at 20:00 Pantoprazole (Protonix Tab) 40 mg DAILY@06 PO Last administered on 09/21/16 06 :29; Admin Dose 40 MG; Start 09/10/16 at 06:00 Tramadol HCl (Ultram) 50 mg Q4H PRN PO PAIN; Start 09/09/16 at 20:00 Acetaminophen (Tylenol Tab) 500 mg Q4H PRN PO PAIN; Start 09/09/16 at 20:00 Acetaminophen/ Hydrocodone Bitart ([place] (10/325)) 1 tab Q4H PRN PO PAIN Last administered on 09/18/16 09:21; Admin Dose 1 TAB; Start 09/09/16 at 20:00 Acetaminophen/ Hydrocodone Bitart ([place] (10/325)) 2 tab Q4H PRN PO PAIN; Start 09/09/16 at 20:00 Ferrous Sulfate (Ferrous Sulfate (Ec)) 325 mg TID PO Last administered on 08:46; Admin Dose 325 MG; Start 09/09/16 at 21:00 Miscellaneous Information 1 ea NOTE XX ; Start 09/09/16 at 20:30 Glucose (Glutose) 15 gm Q15M PRN PO DECREASED GLUCOSE; Start 09/09/16 at 20:30 Glucose (Glutose) 22.5 gm Q15M PRN PO DECREASED GLUCOSE; Start 09/09/16 at 20:30 Dextrose (D50w Syringe) 25 ml Q15M PRN IV DECREASED GLUCOSE; Start 09/09/16 at 20:30 Dextrose (D50w Syringe) 50 ml Q15M PRN IV DECREASED GLUCOSE; Start 09/09/16 at 20:30 Glucagon (Glucagen) 1 mg Q15M PRN IM DECREASED GLUCOSE; Start 09/09/16 at 20:30 Glucose (Glutose) 15 gm Q15M PRN BUCCAL DECREASED GLUCOSE; Start 09/09/16 at 20: 30 Atorvastatin Calcium (Lipitor) 40 mg HS PO Last administered on 09/18/16 20:56 ; Admin Dose 40 MG; Start 09/10/16 at 21:00; Status Future Hold Eye Lubricant (Refresh Plus) 1 drop TID BOTH EYES Last administered on 11:26; Admin Dose 1 DROP; Start 09/12/16 at 21:00 Ascorbic Acid (Vitamin C) 250 mg BID PO Last administered on 09/21/16 08:46; Admin Dose 250 MG; Start 09/14/16 at 21:00 Zinc Sulfate (Zinc Sulfate) 220 mg DAILY PO Last administered on 09/21/16 08: 46; Admin Dose 220 MG; Start 09/15/16 at 09:00 Acyclovir (Zovirax) 800 mg TID PO Last administered on 09/21/16 08:46; Admin Dose 800 MG; Start 09/17/16 at 21:00; Stop 09/27/16 at 20:59 MCKAY ROSAS M.D. Sep 21, 2016 11:39
--- NOTE | 2016-09-21 15:47 | PN ---
Date/Time of Note Date/Time of Note DATE: 09/21/16 TIME: 15:45 Assessment/Plan VTE Prophylaxis VTE Prophylaxis Intervention: SCD's Lines/Catheters Urinary Cath still in place: No Assessment/Plan Chief Complaint/Hosp Course Assessment/Plan - Left frontoparietal meningioma, status post resection. - Right lower extremities weakness secondary to meningioma. - Hyperglycemia most likely secondary to steroids, resolved. - Buttocks rash with papules with culture positive for herpes infection, continue acyclovir. Dr. Lew is following an infection disease consultation. - Transaminitis, resolving, CMP with PMD in 1 to weeks. Further recommendations based on clinical course. Plan of care discussed with Dr. Singh. Problems: Exam/Review of Systems Vital Signs Vitals Vital Signs Date Time Temp Pulse Resp B/P Pulse Ox O2 Delivery O2 Flow Rate FiO2 09/21/16 01:58 98.9 81 20 101/52 95 Intake and Output 09/20/16 09/20/16 09/21/16 15:00 23:00 07:00 Intake Total 550 ml 970 ml 300 ml Output Total 351 ml Balance 550 ml 970 ml -51 ml Results Result Diagram: 09/21/16 0633 09/21/16 0633 Results 24 hrs Laboratory Tests Test 09/20/16 21:54 09/21/16 06:33 Bedside Glucose 127 White Blood Count 7.7 Red Blood Count 3.86 L Hemoglobin 11.3 L Hematocrit 33.6 L Mean Corpuscular Volume 87.0 Mean Corpuscular Hemoglobin 29.3 Mean Corpuscular Hemoglobin Concent 33.6 Red Cell Distribution Width 15.1 H Platelet Count 184 Mean Platelet Volume 10.0 Neutrophils % 54.6 Lymphocytes % 32.6 Monocytes % 8.7 Eosinophils % 2.6 Basophils % 1.0 Neutrophils # 4.2 Lymphocytes # 2.5 Monocytes # 0.7 Eosinophils # 0.2 Basophils # 0.1 Nucleated Red Blood Cells # 0.0 Sodium Level 138 Potassium Level 3.4 L Chloride Level 98 Carbon Dioxide Level 27 Anion Gap 16 Blood Urea Nitrogen 11 Creatinine 0.60 Glucose Level 97 Calcium Level 8.7 JOSÉ PEREZ Sep 21, 2016 15:47
--- NOTE | 2016-09-26 11:39 | DS ---
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 Herpetic rash, improving 3. Hyperlipidemia 4. Diabetes Mellitus 5. Left knee DJD 6. Improvements in self-care, mobility and mild cognition. Patient Condition: Good Hospital Course Patient was admitted for comprehensive interdisciplinary acute rehabilitation. Patient made steady functional gains and improved from a mod level to a Supervised level for self care and mobility, including ambulating over 150 feet with the use of a front wheeled walker. arelis was noted to have buttock lesions during course of stay, and cultures were consistent with herpes infection. Patient was treated with antiviral agent and wound care with improvement in rash. Patient is being discharged home with recommendations for home health PT and OT follow up. DME recommendations: FWW; BSC; Shower Chair Patient will follow up with PMD upon DC. Home Meds Reported Medications Omeprazole* (Omeprazole*) 40 Mg Capsule., 40 MG PO DAILY 12/24/12 [Fish Oil] No Conflict Check, PO 10/15/12 [Vitamins] No Conflict Check, PO 10/15/12 Glucosamine Sulfate 2KCL (GLUCOSAMINE) 1,000 Mg Tablet, 1500 MG PO BID 10/15/12 Primary Care Provider JESSICA Hyde MD Sep 26, 2016 11:39
== END 2016-09-21 13:00 | disposition home health service (06) | DRG 950 ==
LOC: VRC 16:27
PROVIDERS: ADMIT Physical Medicine & Rehabilitation; ATTEND Internal Medicine
PROC: F07Z5ZZ Bed Mobility Treatment (ICD-10-PCS; principal; 2016-09-09)
PROC: F06Z1ZZ Speech-Language Pathology and Related Disorders Counseling Treatment (ICD-10-PCS; 2016-09-09)
PROC: F08Z2ZZ Grooming/Personal Hygiene Treatment (ICD-10-PCS; 2016-09-09)
DX: Z48.3 Aftercare following surgery for neoplasm (principal); E11.65 Type 2 diabetes mellitus with hyperglycemia; D32.0 Benign neoplasm of cerebral meninges; E78.5 Hyperlipidemia, unspecified; M17.12 Unilateral primary osteoarthritis, left knee; L98.419 Non-pressure chronic ulcer of buttock with unspecified severity; R73.9 Hyperglycemia, unspecified; L53.8 Other specified erythematous conditions; R21 Rash and other nonspecific skin eruption; M62.81 Muscle weakness (generalized); B00.9 Herpesviral infection, unspecified
CPT/HCPCS: 76700; 80048; 80053; 80306; 81001; 82962; 85025; 86704; 86709; 86803; 87081; 87086; 87255; 87340; 92523; 97110; 97112; 97116; 97150; 97163; 97167; 97530; 97535; 97542; J1815; L1932; L2820

== ENCOUNTER 2018-07-30 07:06 | Day surgery (SDC) | payer MEDICARE, OTHER ==
[2018-07-30] VITALS (16 sets, daily range): BP systolic 99–141; BP diastolic 56–71; PULSE 64–79; RESP 15–28; Ht 146.1 cm; Wt 54.8 kg
[~2018-07-30] VITALS: Ht 146.1 cm; Wt 54.8 kg
[~2018-07-30 07:06] MED LIST changes: +CEFAZOLIN 1 GM/50 ML (PMX) 50 ML IVPB SCH; +SOD CHLORIDE 0.9% 1,000 ML IV SCH
[2018-07-30] MEDS ORDERED: LEVE500T8 PO (08:00)
[2018-07-30] MEDS ORDERED: LEVO25TA50 PO (08:01)
[2018-07-30] MEDS ORDERED: TIMO5DRO30 RIGHT EYE (08:02)
[2018-07-30] MEDS ORDERED: ONDANSETRON 4 MG INJ IV PRN ×2 (10:30→12:30)
[2018-07-30] MEDS ORDERED: MEPERIDINE 25 MG INJ IV PRN (10:30)
[2018-07-30] MEDS ORDERED: HYDROmorphONE 1 MG/5 ML IV SYRINGE IV PRN ×2 (10:30)
[2018-07-30] MEDS ORDERED: LABETALOL HCL 20MG INJ IV PRN (10:30)
--- NOTE | 2018-07-30 10:30 | HPN ---
Date/Time of Note Date/Time of Note DATE: 07/30/18 TIME: 10:30 Interval H&P Admission Note Pt. seen H&P reviewed: No system changes CHIP ENRIQUE MD July 30, 2018 10:30
--- NOTE | 2018-07-30 10:30 | PREAC ---
Date/Time of Note Date/Time of Note DATE: 07/30/18 TIME: 10:28 Anesthesia Eval and Record Evaluation Time Pre-Procedure Interview DATE: 07/30/18 TIME: 10:28 Age 88 Sex female NPO: 8 hrs Preoperative diagnosis lower back mass Planned procedure excision of lower back mass Past Medical History Past Medical History: Includes Endo: Other (thyroid neoplasm ) Neuro: Seizure disorder, Other (glucoma ) Surgery & Anesthesia Issues No known issue Meds Anticoagulation: No Beta Sherly within 24 hr: No Reason Beta Sherly not given: Pt. not on B-Sherly Reported Medications Timolol Maleate* (Timoptic*) 0.5%-5ml Opht, 1 DROP RIGHT EYE BID, #1 EA 07/30/18 Levothyroxine Sodium* (Levoxyl*) 25 Mcg Tablet, 25 MCG PO BEFORE BREAKFAST, #30 TAB 07/30/18 Levetiracetam* (Levetiracetam*) 500 Mg Tablet, 500 MG PO BID, TAB 07/30/18 Discontinued Reported Medications Omeprazole* (Omeprazole*) 40 Mg Capsule.dr, 40 MG PO DAILY 12/24/12 [Fish Oil] No Conflict Check, PO 10/15/12 [Vitamins] No Conflict Check, PO 10/15/12 Glucosamine Sulfate 2KCL (GLUCOSAMINE) 1,000 Mg Tablet, 1500 MG PO BID 10/15/12 Current Medications Cefazolin Sodium 50 ml @ 100 mls/hr PREOP IVPB ; Start 07/30/18 at 06:00; Stop 07/30/18 at 19:00 Sodium Chloride 1,000 ml @ 75 mls/hr [id number] IV Last administered on 07/30/18at 08:48; Admin Dose 75 MLS/HR; Start 07/30/18 at 06:00; Stop 07/30/18 at 19:00 Meds reviewed: Yes Allergies Coded Allergies: No Known Allergy (Unverified , 07/30/18) Allergies Reviewed: Yes Labs/Studies Labs Reviewed: Reviewed by anesthesiologist test: N/A Pre-procedure Exam Last vitals Vital Signs Date Temp Pulse Resp B/P (MAP) Pulse Ox O2 O2 Flow FiO2 Time Delivery Rate 07/30/18 98.0 72 16 141/60 95 Room Air 08:41 (87) Airway: Adequate mouth opening, Adequate thyromental dist Mallampati: Mallampati IV Teeth: Normal Lung: Normal Heart: Normal ASA Physical Status ASA physical status: 3 Emergency: None Pre-operative Attestations Prior to commencing anesthesia and surgery, the patient was re-evaluated, there was verification of: *The patient's identity *The results of appropriate recent lab work and preoperative vital signs *The above evaluation not changing prior to induction *Anesthetic plan, risk benefits, alternative and complications discussed with patient/family; questions answered; patient/family understands, accepts and wishes to proceed. WARREN OROZCO DO July 30, 2018 10:30
[2018-07-30] MEDS ORDERED: BUPIVACAINE 0.25%/EPI (SDV) 30 ML INJ ONE (10:31)
[2018-07-30] MEDS ORDERED: LIDOCAINE 1%/EPI (1:100,000) (MDV) 20 ML ONE (10:31)
[2018-07-30] MEDS ORDERED: MIDAZOLAM 1 MG/ML 2 ML INJ ONE (10:35)
[2018-07-30] MEDS ORDERED: LIDOCAINE 1% (MDV) 20 ML INJ ONE (10:35)
[2018-07-30] MEDS ORDERED: ETOMIDATE 20 MG INJ ONE (10:35)
[2018-07-30] MEDS ORDERED: ROCURONIUM 50 MG INJ ONE (10:35)
[2018-07-30] MEDS ORDERED: CEFAZOLIN 1 GM INJ ONE (11:02)
[2018-07-30] MEDS ORDERED: ONDANSETRON 4 MG INJ ONE (11:02)
[2018-07-30] MEDS ORDERED: DEXAMETHASONE 4 MG/ML 5 ML INJ ONE (11:02)
[2018-07-30] MEDS ORDERED: EPHEDrine 25 MG/5 ML SYG ONE (11:22)
[2018-07-30] MEDS ORDERED: BACITRACIN/POLYMYXIN 28.35 GM OINT TOP ONE (12:13)
[2018-07-30] MEDS ORDERED: SUGAMMADEX SODIUM 200 MG/2 ML VIAL IV ONE (12:18)
[2018-07-30] MEDS ORDERED: LACTATED RINGER'S 1,000 ML IV SCH (12:28)
--- NOTE | 2018-07-30 12:28 | SIPON ---
Date/Time of Note Date/Time of Note DATE: 07/30/18 TIME: 12:21 Operative Report Preoperative Diagnosis Mass lesion involving the skin over left lower back. Postoperative Diagnosis The same pending pathology report Operation/Procedure Performed wide excision of the mass lesion with a clear margin #1. #2 primary repair in 2 layer and placement of a Aftab-Klein drain #7 under the mobilized skin. #3 local flap advancement on each side lateral medial superior and inferior 4 cm each. Surgeon see signature line surveyor instrument assistant None Anesthesia: general Estimated blood loss: minimal Transfusion Required none Specimen The specimen is mass and lesion of the skin and subcutaneous tissue with normal- looking margin was oriented to be two long superior two short marking sutures left side. Grafts/Implants none Complications none CHIP ENRIQUE MD July 30, 2018 12:28
[2018-07-30] MEDS ORDERED: HYDROCODONE/APAP (5/325) TAB PO PRN (12:30)
--- NOTE | 2018-07-30 14:31 | PAC ---
Date/Time of Note Date/Time of Note DATE: 07/30/18 TIME: 14:31 Post-Anesthesia Notes Post-Anesthesia Note Last documented vital signs Vital Signs Date Temp Pulse Resp B/P (MAP) Pulse Ox O2 O2 Flow FiO2 Time Delivery Rate 07/30/18 96.9 67 16 122/59 96 Room Air 13:46 (80) 07/30/18 8.0 12:36 Activity: WNL Respiratory function: WNL Cardiovascular function: WNL Mental status: Baseline Pain reasonably controlled: Yes Hydration appropriate: Yes Nausea/Vomiting absent: Yes WARREN OROZCO DO July 30, 2018 14:31
--- NOTE | 2018-08-01 18:44 | OPR ---
DATE OF OPERATION: 07/30/2018 SURGEON: Angel Enrique MD ANESTHESIA: General. ANESTHESIOLOGIST: Stefano Yeager DO BALLOON PILOT: None. PREOPERATIVE DIAGNOSIS: Mass, lower back on the left side with some skin lesion involving the mass s uperficially. POSTOPERATIVE DIAGNOSIS: Mass, lower back on the left side with some skin lesion involving the mass superficially, pending pat hology report. PROCEDURES: 1. Wide excision of the low back skin mass and lesion. 2. Local flap advancement for primary closure of the wound in 2 layers. 3. Placement of a Aftab-Klein drain #7 under the mobilized skin flaps. INDICATION: This is an 88-year-old female who presented to clinic with her daughter complaining of p resence of the lesion and mass in the lower back, which has been bothering her for the past several m onths, especially when she lies down on the back. No drainage, no bleeding. Actually, the patient w as referred to us by primary physician as a pilonidal cyst and sinus, but of course on examination, i t showed that there was a large, about 2.5 x 2.5 skin lesion which was forming almost a mass going to the deeper layer of the skin. Recommended to be excised completely. The patient accepted, that was consented and planned for operation today. PROCEDURE: The patient was brought to the operating room, placed on the gurney and was put to sleep and then was positioned in supine position on the operating table. All the pressure areas including the joints were padded completely to prevent pressure sores. The patient was identified, site of ope ration was identified, concerns of the operation was discussed among the team, then prepping with Bet adine and draping in a sterile fashion was performed. The buttocks before that were taped to the lat eral side of the operating table, so that the intergluteal cleft could be spread. Then, local anesth esia was used during the whole procedure with a mixture of 30 mL of 0.25% Marcaine with epinephrine, plus 30 mL of 1% lidocaine with epinephrine. Local anesthesia was injected to assist in postop analg esia and also to control the hemorrhage. Then elliptical marking was placed about 1 cm almost on eac h side of the lesion, which was totally about 3.5 cm and then an elliptical long axis longitudinally about 3 times of this, so an elliptical incision was made encompassing the whole lesion with obvious margins. This could be carried down through subcutaneous tissue down to the presacral fascia. Hemos tasis achieved completely. The specimen was marked with suture superiorly and also with suture marke d the lateral border of the specimen, was sent for pathologic evaluation. Before that, I requested p athologist, , came in the operating room and I confer with him if the margins grossly looks clear and he agreed and therefore, we did not do frozen section per recommendation and will wait for the result of the permanent pathology. Then, the wound was thoroughly irrigated. To be able to clos e the defect, I had to develop local flaps on both sides, medial and lateral and superior and inferio r, each side about 4 cm. Flap was developed. Hemostasis achieved on that. Then, closure of the wou nd was done with 2 layers with 3-0 Vicryl deep layer and before that, a Aftab-Klein drain #7 from t he lateral aspect of the wound was brought in and placed under the flaps and then the deep layer was closed on top of the drain and the skin was closed with #3-0 Prolene vertical interrupted sutures wer e applied. At the end, dry dressing was applied and the Aftab-Klein drain tubing was anchored to t he skin with #2-0 nylon, connected to the bowel. The patient tolerated procedure well. Sponge and i nstrument count reported to be correct x2. Estimated blood loss 5 mL. The patient was transferred t o the [facility] in supine position and then was extubated, transferred to recovery room. Dictated By: ANGEL ENRIQUE MD PS/ELIZABETH Conf#: [id number] DID#: [id number] CC: EDA ZURITA MD;*EndCC*
== END 2018-07-30 14:36 | disposition home or self-care (01) ==
LOC: SDS 07:06
DX: R22.2 Localized swelling, mass and lump, trunk (principal); H40.9 Unspecified glaucoma; Z86.011 Personal history of benign neoplasm of the brain
CPT/HCPCS: 14000; 21935; 88307; J0690; J1100; J2250; J2405; J3010

== ENCOUNTER 2018-08-04 14:57 | Inpatient (IN) | payer MEDICARE, OTHER ==
[~2018-08-04] VITALS: Ht 154.9 cm; Wt 56.0 kg
[~2018-08-04 14:57] MED LIST changes: -CEFAZOLIN 1 GM/50 ML (PMX) 50 ML IVPB SCH; -FISH OIL PO; -GLUC100015 PO; +LEVE500T8 PO; +LEVO25TA50 PO; -OMEP40CA6 PO; -SOD CHLORIDE 0.9% 1,000 ML IV SCH; +TIMO5DRO30 RIGHT EYE; -VITAMINS PO
[2018-08-04] MEDS ORDERED: SODIUM CHLORIDE 0.9% 1L BAG IV* STA (15:12)
[2018-08-04] MEDS ORDERED: PIPER-TAZO 3.375 GM IV (PMX) 100 ML IVPB STA (15:12)
[2018-08-04] MEDS ORDERED: VANCOMYCIN 1 GM (PMX) 250 ML IVPB ONE (15:30)
--- NOTE | 2018-08-04 15:41 | ERD ---
ER Documentation Chief Complaint Chief Complaint sent by Dr Singh r/o cellulitis & wound infection post op HPI 88 year old sent by surgeon, Dr. Noriega, for evaluation of post-op wound infection an request for admission. She had a surgical resection of some type of "mole" per the patient's daughter in the sacral area on July 30. He placed the drain that has been draining bloody fluid that is now more thick and cloudy. She has also developed a fever since yesterday for which she has been taking Tylenol. She has increasing pain in the area of the surgery as well. She was seen by the surgeon today and was sent here for admission for wound infection. Patient denies any other associated symptoms such as nausea, vomiting, cough, shortness of breath, diarrhea or constipation. ROS All systems reviewed and are negative except as per history of present illness. Medications Home Meds Reported Medications Timolol Maleate* (Timoptic*) 0.5%-5ml Opht, 1 DROP RIGHT EYE BID, #1 EA 07/30/18 Levothyroxine Sodium* (Levoxyl*) 25 Mcg Tablet, 25 MCG PO BEFORE BREAKFAST, #30 TAB 07/30/18 Levetiracetam* (Levetiracetam*) 500 Mg Tablet, 500 MG PO BID, TAB 07/30/18 Discontinued Reported Medications Omeprazole* (Omeprazole*) 40 Mg Capsule., 40 MG PO DAILY 12/24/12 [Fish Oil] No Conflict Check, PO 10/15/12 [Vitamins] No Conflict Check, PO 10/15/12 Glucosamine Sulfate 2KCL (GLUCOSAMINE) 1,000 Mg Tablet, 1500 MG PO BID 10/15/12 Allergies Allergies: Coded Allergies: No Known Allergy (Unverified , 08/04/18) PMhx/Soc History of Surgery: Yes (BRAIN SURGERY,HYSTERECTOMY,CHOLECYSTECTOMY) Anesthesia Reaction: No Hx Neurological Disorder: Yes (MENINGIOMA, SZ) Hx Respiratory Disorders: No Hx Cardiac Disorders: No Hx Psychiatric Problems: No Hx Miscellaneous Medical Probl: Yes (thyroidectomy) Hx Alcohol Use: No Hx Substance Use: No Hx Tobacco Use: No FmHx Family History: No diabetes Physical Exam Vitals Vital Signs Date Temp Pulse Resp B/P (MAP) Pulse Ox O2 O2 Flow FiO2 Time Delivery Rate 08/04/18 100.7 98 18 127/60 97 15:02 (82) Physical Exam Const: No acute distress, well appearing, nontoxic Head: Atraumatic Eyes: Normal Conjunctiva ENT: Normal External Ears, Nose and Mouth. Neck: Full range of motion. No meningismus. Resp: Clear to auscultation bilaterally Cardio: Regular rate and rhythm, no murmurs Abd: Soft, non tender, non distended. Normal bowel sounds Skin: No petechiae or rashes Back: No midline or flank tenderness. Sacral area with sutures in place, surrounding erythema and tenderness and induration. No drainage from the wound. The left side of the wound has a small drain, draining red proteinaceous fluid. Ext: No cyanosis, or edema Neur: Awake and alert Psych: Normal Mood and Affect Result Diagram: 08/04/18 1537 08/04/18 1537 Results 24 hrs Laboratory Tests Test 08/04/18 15:33 08/04/18 15:37 POC Venous Lactate 0.9 mmol/L White Blood Count 16.2 10^3/ul Red Blood Count 4.79 10^6/ul Hemoglobin 13.5 g/dl Hematocrit 41.6 % Mean Corpuscular Volume 86.8 fl Mean Corpuscular Hemoglobin 28.2 pg Mean Corpuscular Hemoglobin Concent 32.5 g/dl Red Cell Distribution Width 14.7 % Platelet Count 196 10^3/UL Mean Platelet Volume 11.0 fl Immature Granulocytes % 0.600 % Neutrophils % 62.8 % Lymphocytes % 23.7 % Monocytes % 12.1 % Eosinophils % 0.6 % Basophils % 0.2 % Nucleated Red Blood Cells % 0.0 /100WBC Immature Granulocytes # 0.090 10^3/ul Neutrophils # 10.2 10^3/ul Lymphocytes # 3.8 10^3/ul Monocytes # 2.0 10^3/ul Eosinophils # 0.1 10^3/ul Basophils # 0.0 10^3/ul Nucleated Red Blood Cells # 0.0 10^3/ul Prothrombin Time 14.1 Sec Prothrombin Time Ratio 1.1 INR International Normalized Ratio 1.08 Activated Partial Thromboplast Time 34.0 Sec Sodium Level 137 mmol/L Potassium Level 4.3 mmol/L Chloride Level 102 mmol/L Carbon Dioxide Level 27 mmol/L Anion Gap 8 Blood Urea Nitrogen 14 mg/dl Creatinine 0.79 mg/dl Est Glomerular Filtrat Rate mL/min mL/min Glucose Level 97 mg/dl Calcium Level 8.9 mg/dl Total Bilirubin 1.4 mg/dl Direct Bilirubin 0.00 mg/dl Indirect Bilirubin 1.4 mg/dl Aspartate Amino Transf (AST/SGOT) 25 IU/L Alanine Aminotransferase (ALT/SGPT) 18 IU/L Alkaline Phosphatase 85 IU/L Troponin I Pending Total Protein 8.1 g/dl Albumin 4.1 g/dl Globulin 4.00 g/dl Albumin/Globulin Ratio 1.02 Current Medications Medications Dose Sig/Paul Start Time Status Last (Trade) Ordered Route PRN Stop Time Admin Dose Reason Admin Sodium 1,670 ml BOLUS OVER 2 08/04/18 DC 08/04/18 Chloride HOURS STAT 15:12 08/04/18 15:46 (NS) IV* 15:15 Vancomycin 250 ml @ ONCE ONCE 08/04/18 HCl 125 mls/hr IVPB 15:30 08/04/18 17:29 Piperacillin 100 ml @ ONCE STAT 08/04/18 DC 08/04/18 Sod/ 200 mls/hr IVPB 15:12 08/04/18 15:46 Tazobactam 15:41 Sod 1,000 mg ONCE STAT 08/04/18 DC Acetaminophen PO 16:06 08/04/18 (Tylenol 16:07 Tab) Procedures/MDM EMERGENT LABS AND DIAGNOSTIC STUDIES: Lab Results above were reviewed and interpreted by me. CBC: Leukocytosis concerning for infection, no evidence of anemia CMP: No evidence of clinically significant electrolyte abnormality, acidosis, renal failure, hypoglycemia, liver disease, or biliary obstruction Troponin within normal limits, not indicative of cardiac ischemia Lactate within normal limits without evidence of sepsis or tissue hypoperfusion Radiology Results as interpreted by Radiology below were reviewed by Josh Simmons MD: Chest x-ray shows no acute abnormalities Initial Nursing notes reviewed. Previous Medical Records requested via the Electronic Health Record. EMERGENCY DEPARTMENT COURSE / MEDICAL DECISION MAKING: Patient presents with fever and concerns of postop wound infection. The area does appear infected with cellulitis. No palpable abscess. Sepsis work-up was initiated as the patient met sirs criteria. However lactate was within normal limits and there is no evidence of severe sepsis or septic shock. No evidence of necrotizing infection on exam. Patient will be admitted for IV antibiotics. IV antibiotics and fluids were started in the ED. Accepting Care Team: Current data and ongoing care discussed. Time: Time of admission Primary Provider: Dr. Singh Consulting: Dr. Noriega Outstanding Data: none Departure Diagnosis: Primary Impression: Surgical wound infection Additional Impression: Sepsis Sepsis type: sepsis due to unspecified organism Qualified Codes: A41.9 - Sepsis, unspecified organism Condition: JEANNETTE Barnhart MD Aug 04, 2018 15:41
[2018-08-04] MEDS ORDERED: ACETAMINOPHEN 500 MG TAB PO STA (16:06)
[2018-08-04] MEDS ORDERED: ONDANSETRON 4 MG INJ IV PRN (17:00)
[2018-08-04] MEDS ORDERED: ACETAMINOPHEN 325 MG TAB PO PRN (17:00)
[2018-08-04 17:49] VITALS: BP 105/56; RESP 18
[2018-08-04 18:28] VITALS: Ht 154.9 cm; Wt 56.0 kg
[2018-08-04] MEDS ORDERED: VANCOMYCIN IV PER PHARMACY XX SCH (20:00)
[2018-08-04] MEDS ORDERED: HYDROCODONE/APAP (5/325) TAB PO PRN (20:00)
[2018-08-04 20:10] VITALS: BP 112/62; PULSE 78; RESP 16
[2018-08-04] MEDS: TIMOLOL 0.5% 5 ML OPH RIGHT EYE SCH (23:30)
[2018-08-04] MEDS: LEVETIRACETAM 500 MG TAB PO SCH (23:46)
[2018-08-05 01:46] VITALS: BP 93/55; PULSE 73; RESP 16
--- NOTE | 2018-08-05 05:01 | HP ---
DATE OF ADMISSION: 08/04/2018 CHIEF COMPLAINT: Wound infection in the lower back. HISTORY OF PRESENT ILLNESS: History was obtained from the patient's old chart and discussion with ER physician, patient's family as well as discussion with Dr. Enrique, who recently performed surgery on her. The patient is an 88-year-old female well known to me from previous admission. The patient has hypothyroidism, seizure disorder, history of left frontoparietal meningioma status post resection. The patient was seen by Dr. Enrique as an outpatient for lower back mass. The patient underwent wide excision of the mass with the primary repair and placement of Aftab-Klein pain on 07/30/2018. The surgery was done under general anesthesia. The patient was discharged home. 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 No definite malignancy. Herpes simplex using immunohistochemical stain method will be performed to verify possibility of viral cytopathic effect. Results are still pending. 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 Waller at that time. The patient went to see Dr. Enrique today for postop evaluation and was noted to be afebrile. The patient was sent to ER where she was again noted to have temperature of 100.7. The patient also had white count of 16.2 and JUAN drain was more pink and cloudy. The patient reported that she has been having fever since yesterday, for which she took Tylenol including postoperative pain. The patient did not have any nausea, vomiting. No reported chest pain. No shortness of breath, no reported abdominal pain, no reported recent seizure. No reported leg edema. No reported numbness, tingling or weakness in any extremities. No reported headache. REVIEW OF SYSTEMS: Twelve systems were reviewed. All pertinent positive and negative findings have been described in HPI. Rest of review of systems is unremarkable. PAST MEDICAL HISTORY: As stated above. 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 PAST SURGICAL HISTORY: As stated above. In addition, the patient is also status post cataract repair on the left side. FAMILY HISTORY: No pertinent family history. SOCIAL HISTORY: No smoking or alcohol. MEDICATIONS PRIOR TO ADMISSION: 1. Keppra. 2. Timolol eyedrops. 3. Levothyroxine. ALLERGIES: NO KNOWN DRUG ALLERGIES. PHYSICAL EXAMINATION: GENERAL: The patient is awake, alert, fairly oriented. VITAL SIGNS: T-maximum in the ER 100.7, pulse 87, respirations 20, blood pressure 112/48, O2 saturation 96% on room air. HEENT: Conjunctivae are normal. Extraocular movements are intact. No nystagmus. NECK: Supple. No mass, no thyromegaly. Oropharynx is clear. CHEST: Fairly clear. CARDIOVASCULAR: S1, S2 normal. ABDOMEN: Soft, nondistended, nontender. Bowel sounds plus. EXTREMITIES: No edema, clubbing, cyanosis. NEUROLOGIC: The patient is awake, alert, fairly oriented with no gross focal deficit. MUSCULOSKELETAL: Lower back examination: Sutures are in place. JUAN drain has a thick fluid. LYMPHATICS: Negative in neck and axilla. LABORATORY DATA: Done today, WBC 16.2, hemoglobin 13.5, platelet 196. Sodium 137, potassium 4.3, BUN 14, normal creatinine, glucose 97. Lactate 1.6. Bilirubin 1.4, (100% indirect bilirubin), AST 25, ALT 18, alkaline phosphatase 85, albumin 4.1. DIAGNOSTIC DATA: Chest x-ray: COPD and chronic interstitial changes. IMPRESSION: 1. Lower back mass, status post resection. Pathology is negative for malignancy, special stain pending to rule out herpes. 2. Postop wound infection. The patient will be started on IV vancomycin and Zosyn. We will obtain culture from JUAN drain . ID consult from Dr. Ferreira group will be obtained 3. Hypothyroidism. Continue Synthroid. We will obtain TSH in the morning. 4. Seizure disorder. Continue Keppra. 5. Glaucoma. Continue timolol. 6. Left frontoparietal meningioma status post resection. Plan of care was discussed with the her family, ER physician,and Dr. Enrique. We will continue to follow. Further recommendation will depend on the patient's hospitalization course. Dictated By: YULISA BEAN MD AB/NTS Conf#: [id number] DID#: [id number] CC: CHIP ENRIQUE MD;*EndCC* MTDD
[2018-08-05] MEDS: LEVOTHYROXINE 25 MCG TAB PO SCH (06:12)
[2018-08-05] MEDS: ACETAMINOPHEN 325 MG TAB PO PRN ×3 (06:17→18:43)
[2018-08-05 08:01] VITALS: BP 92/50; PULSE 67; RESP 20
[2018-08-05] MEDS ORDERED: NS + KCL 20 MEQ 1,000 ML IV SCH (08:30)
[2018-08-05] MEDS: LEVETIRACETAM 500 MG TAB PO SCH ×2 (08:32→21:26)
[2018-08-05] MEDS: TIMOLOL 0.5% 5 ML OPH RIGHT EYE SCH ×2 (08:33→21:26)
[2018-08-05] MEDS: NS + KCL 20 MEQ 1,000 ML IV SCH ×2 (10:53→23:48)
[2018-08-05 14:53] VITALS: BP 105/55; PULSE 75; RESP 16
--- NOTE | 2018-08-05 15:17 | PN ---
Date/Time of Note Date/Time of Note DATE: 08/05/18 TIME: 15:10 Assessment/Plan VTE Prophylaxis Risk score [place] [facility] [place] risk: 5 SCD applied (from [facility] [place] Yes Pharmacological prophylaxis: NA/contraindicated Pharm contraindication: surgical contra Lines/Catheters IV C[facility]ter Type (from [facility] [place] Urinary Cath still in place: No Assessment/Plan Hospital Course Pt is afebrile, complains of left buttock surgical wound pain. Assessment/Plan - Lower back mass, status post resection. Dr Noriega is following in surgical consultation. - Postop wound infection. Continue vancomycin, follow-up on final wound culture. Dr. Ferreira is asked to see patient in infection disease consultation. - Hypothyroidism. Continue Synthroid. - Seizure disorder. Continue Keppra. - Glaucoma. Continue timolol. - Left frontoparietal meningioma, status post resection. - Right lower extremities weakness secondary to meningioma. Further recommendations based on clinical course. Plan of care discussed with Dr. Singh. Result Diagram: 08/05/18 0452 08/05/18 0452 Results 24hrs Laboratory Tests Test 08/04/18 15:33 08/04/18 15:37 08/04/18 16:40 08/04/18 18:47 POC Venous Lactate 0.9 White Blood Count 16.2 #H Red Blood Count 4.79 # Hemoglobin 13.5 Hematocrit 41.6 # Mean Corpuscular Volume 86.8 Mean Corpuscular 28.2 L Hemoglobin Mean Corpuscular 32.5 Hemoglobin Concent Red Cell Distribution 14.7 H Width Platelet Count 196 Mean Platelet Volume 11.0 H Immature Granulocytes % 0.600 H Neutrophils % 62.8 Lymphocytes % 23.7 Monocytes % 12.1 H Eosinophils % 0.6 Basophils % 0.2 Nucleated Red Blood 0.0 Cells % Immature Granulocytes # 0.090 H Neutrophils # 10.2 H Lymphocytes # 3.8 H Monocytes # 2.0 H Eosinophils # 0.1 Basophils # 0.0 Nucleated Red Blood 0.0 Cells # Prothrombin Time 14.1 Prothrombin Time Ratio 1.1 INR International 1.08 Normalized Ratio Activated 34.0 Partial Thromboplast Time Sodium Level 137 Potassium Level 4.3 Chloride Level 102 Carbon Dioxide Level 27 Anion Gap 8 Blood Urea Nitrogen 14 Creatinine 0.79 Est Glomerular Filtrat Rate mL/min Glucose Level 97 Calcium Level 8.9 Total Bilirubin 1.4 H Direct Bilirubin 0.00 Indirect Bilirubin 1.4 H Aspartate Amino 25 Transf (AST/SGOT) Alanine 18 Aminotransferase (ALT/SG PT) Alkaline Phosphatase 85 Troponin I < 0.012 Total Protein 8.1 Albumin 4.1 Globulin 4.00 H Albumin/Globulin Ratio 1.02 Urine Color STRAW Urine Clarity CLEAR Urine pH 7.0 Urine Specific [place] 1.003 Urine Ketones NEGATIVE Urine Nitrite NEGATIVE Urine Bilirubin NEGATIVE Urine Urobilinogen NEGATIVE Urine Leukocyte Esterase NEGATIVE Urine Hemoglobin NEGATIVE Urine Glucose NEGATIVE Urine Total Protein NEGATIVE Lactic Acid Level 1.6 Test 08/04/18 19:36 08/05/18 04:52 Lactic Acid Level 1.3 White Blood Count 10.4 # Red Blood Count 4.02 L Hemoglobin 11.4 L Hematocrit 35.1 L Mean Corpuscular Volume 87.3 Mean Corpuscular 28.4 L Hemoglobin Mean Corpuscular 32.5 Hemoglobin Concent Red Cell Distribution 14.9 H Width Platelet Count 175 Mean Platelet Volume 11.6 H Immature Granulocytes % 0.400 Neutrophils % 61.6 Lymphocytes % 24.7 Monocytes % 10.7 Eosinophils % 2.1 Basophils % 0.5 Nucleated Red Blood 0.0 Cells % Immature Granulocytes # 0.040 H Neutrophils # 6.4 Lymphocytes # 2.6 Monocytes # 1.1 H Eosinophils # 0.2 Basophils # 0.1 Nucleated Red Blood 0.0 Cells # Sodium Level 141 Potassium Level 3.5 Chloride Level 110 Carbon Dioxide Level 26 Anion Gap 5 Blood Urea Nitrogen 14 Creatinine 0.67 Est Glomerular Filtrat Rate mL/min Glucose Level 130 Calcium Level 8.0 L Exam/Review of Systems Exam Vitals Vital Signs Date Temp Pulse Resp B/P (MAP) Pulse Ox O2 O2 Flow FiO2 Time Delivery Rate 08/05/18 98.4 75 16 105/55 96 14:53 (72) 08/04/18 Room Air 17:49 Intake and Output 08/04/18 08/04/18 08/05/18 1515:00 23:00 07:00 IntakeIntake Total 360 ml 500 ml OutputOutput Total 30 ml BalanceBalance 360 ml 470 ml Constitutional: alert, oriented Neck: supple Respiratory: clear to auscultation Cardiovascular: nl pulses Gastrointestinal: soft, non-tender Extremities: normal pulses Skin: other (left buttock surgical wound with drain) Results Results 24hrs Laboratory Tests Test 08/04/18 15:33 08/04/18 15:37 08/04/18 16:40 08/04/18 18:47 POC Venous Lactate 0.9 White Blood Count 16.2 #H Red Blood Count 4.79 # Hemoglobin 13.5 Hematocrit 41.6 # Mean Corpuscular Volume 86.8 Mean Corpuscular 28.2 L Hemoglobin Mean Corpuscular 32.5 Hemoglobin Concent Red Cell Distribution 14.7 H Width Platelet Count 196 Mean Platelet Volume 11.0 H Immature Granulocytes % 0.600 H Neutrophils % 62.8 Lymphocytes % 23.7 Monocytes % 12.1 H Eosinophils % 0.6 Basophils % 0.2 Nucleated Red Blood 0.0 Cells % Immature Granulocytes # 0.090 H Neutrophils # 10.2 H Lymphocytes # 3.8 H Monocytes # 2.0 H Eosinophils # 0.1 Basophils # 0.0 Nucleated Red Blood 0.0 Cells # Prothrombin Time 14.1 Prothrombin Time Ratio 1.1 INR International 1.08 Normalized Ratio Activated 34.0 Partial Thromboplast Time Sodium Level 137 Potassium Level 4.3 Chloride Level 102 Carbon Dioxide Level 27 Anion Gap 8 Blood Urea Nitrogen 14 Creatinine 0.79 Est Glomerular Filtrat Rate mL/min Glucose Level 97 Calcium Level 8.9 Total Bilirubin 1.4 H Direct Bilirubin 0.00 Indirect Bilirubin 1.4 H Aspartate Amino 25 Transf (AST/SGOT) Alanine 18 Aminotransferase (ALT/SG PT) Alkaline Phosphatase 85 Troponin I < 0.012 Total Protein 8.1 Albumin 4.1 Globulin 4.00 H Albumin/Globulin Ratio 1.02 Urine Color STRAW Urine Clarity CLEAR Urine pH 7.0 Urine Specific [place] 1.003 Urine Ketones NEGATIVE Urine Nitrite NEGATIVE Urine Bilirubin NEGATIVE Urine Urobilinogen NEGATIVE Urine Leukocyte Esterase NEGATIVE Urine Hemoglobin NEGATIVE Urine Glucose NEGATIVE Urine Total Protein NEGATIVE Lactic Acid Level 1.6 Test 08/04/18 19:36 08/05/18 04:52 Lactic Acid Level 1.3 White Blood Count 10.4 # Red Blood Count 4.02 L Hemoglobin 11.4 L Hematocrit 35.1 L Mean Corpuscular Volume 87.3 Mean Corpuscular 28.4 L Hemoglobin Mean Corpuscular 32.5 Hemoglobin Concent Red Cell Distribution 14.9 H Width Platelet Count 175 Mean Platelet Volume 11.6 H Immature Granulocytes % 0.400 Neutrophils % 61.6 Lymphocytes % 24.7 Monocytes % 10.7 Eosinophils % 2.1 Basophils % 0.5 Nucleated Red Blood 0.0 Cells % Immature Granulocytes # 0.040 H Neutrophils # 6.4 Lymphocytes # 2.6 Monocytes # 1.1 H Eosinophils # 0.2 Basophils # 0.1 Nucleated Red Blood 0.0 Cells # Sodium Level 141 Potassium Level 3.5 Chloride Level 110 Carbon Dioxide Level 26 Anion Gap 5 Blood Urea Nitrogen 14 Creatinine 0.67 Est Glomerular Filtrat Rate mL/min Glucose Level 130 Calcium Level 8.0 L Medications Medication Current Medications Ondansetron HCl (Zofran Inj) 4 mg BRIDGE ORDER PRN IV NAUSEA/VOMITING; Start 08/04/18 at 17:00; Stop 08/05/18 at 16:59 Vancomycin HCl (Vanco Iv Per Pharmacy) VANCOMYCIN PER PHARMACY PER PROTOCOL XX ; Start 08/04/18 at 20:00 Piperacillin Sod/ Tazobactam Sod 50 ml @ 100 mls/hr Q6H IVPB ; Start 08/05/18 at 22:00 Acetaminophen (Tylenol Tab) 650 mg Q6H PRN PO MILD PAIN(1-3)OR ELEVATED TEMP Last administered on 08/05/18at 12:37; Admin Dose 650 MG; Start 08/04/18 at 20:00 Acetaminophen/ Hydrocodone Bitart ([place] (5/325)) 1 tab Q6H PRN PO MODERATE PAIN LEVEL 4-6; Start 08/04/18 at 20:00 Vancomycin/Sodium Chloride 250 ml @ 125 mls/hr Q24H IVPB ; Start 08/05/18 at 17:00 Levetiracetam (Keppra) 500 mg BID PO Last administered on 08/05/18at 08:32; Admin Dose 500 MG; Start 08/04/18 at 23:30 Levothyroxine Sodium (Synthroid) 25 mcg BEFORE BREAKFAST PO Last administered on 08/05/18at 06:12; Admin Dose 25 MCG; Start 08/05/18 at 07:00 Timolol Maleate (Timoptic 0.5%) 1 drop BID RIGHT EYE Last administered on 08/05/18at 08:33; Admin Dose 1 DROP; Start 08/04/18 at 23:30 Potassium Chloride/Sodium Chloride 1,000 ml @ 70 mls/hr [id number] IV Last administered on 08/05/18at 10:53; Admin Dose 70 MLS/HR; Start 08/05/18 at 09:30 JOSÉ PEREZ Aug 05, 2018 15:17
--- NOTE | 2018-08-05 15:25 | CONS ---
Consultation Date/Type/Reason Admit Date/Time Aug 04, 2018 at 16:49 Date/Time of Note DATE: 08/05/18 TIME: 15:25 Past Medical History Home Meds Reported Medications Timolol Maleate* (Timoptic*) 0.5%-5ml Opht, 1 DROP RIGHT EYE BID, #1 EA 07/30/18 Levothyroxine Sodium* (Levoxyl*) 25 Mcg Tablet, 25 MCG PO BEFORE BREAKFAST, #30 TAB 07/30/18 Levetiracetam* (Levetiracetam*) 500 Mg Tablet, 500 MG PO BID, TAB 07/30/18 Discontinued Reported Medications Omeprazole* (Omeprazole*) 40 Mg Capsule.dr, 40 MG PO DAILY 12/24/12 [Fish Oil] No Conflict Check, PO 10/15/12 [Vitamins] No Conflict Check, PO 10/15/12 Glucosamine Sulfate 2KCL (GLUCOSAMINE) 1,000 Mg Tablet, 1500 MG PO BID 10/15/12 Medications Current Medications Ondansetron HCl (Zofran Inj) 4 mg BRIDGE ORDER PRN IV NAUSEA/VOMITING; Start 08/04/18 at 17:00; Stop 08/05/18 at 16:59 Vancomycin HCl (Vanco Iv Per Pharmacy) VANCOMYCIN PER PHARMACY PER PROTOCOL XX ; Start 08/04/18 at 20:00 Piperacillin Sod/ Tazobactam Sod 50 ml @ 100 mls/hr Q6H IVPB ; Start 08/05/18 at 22:00 Acetaminophen (Tylenol Tab) 650 mg Q6H PRN PO MILD PAIN(1-3)OR ELEVATED TEMP Last administered on 08/05/18at 12:37; Admin Dose 650 MG; Start 08/04/18 at 20:00 Acetaminophen/ Hydrocodone Bitart ([place] (5/325)) 1 tab Q6H PRN PO MODERATE PAIN LEVEL 4-6; Start 08/04/18 at 20:00 Vancomycin/Sodium Chloride 250 ml @ 125 mls/hr Q24H IVPB ; Start 08/05/18 at 17:00 Levetiracetam (Keppra) 500 mg BID PO Last administered on 08/05/18at 08:32; Admin Dose 500 MG; Start 08/04/18 at 23:30 Levothyroxine Sodium (Synthroid) 25 mcg BEFORE BREAKFAST PO Last administered on 08/05/18at 06:12; Admin Dose 25 MCG; Start 08/05/18 at 07:00 Timolol Maleate (Timoptic 0.5%) 1 drop BID RIGHT EYE Last administered on 08/05/18at 08:33; Admin Dose 1 DROP; Start 08/04/18 at 23:30 Potassium Chloride/Sodium Chloride 1,000 ml @ 70 mls/hr [id number] IV Last administered on 08/05/18at 10:53; Admin Dose 70 MLS/HR; Start 08/05/18 at 09:30 Allergies: Coded Allergies: No Known Allergy (Unverified , 08/04/18) Past Surgical History Past Surgical Hx: other Social History Smoking Status: Never smoker Exam/Review of Systems Exam Vitals Vital Signs Date Temp Pulse Resp B/P (MAP) Pulse Ox O2 O2 Flow FiO2 Time Delivery Rate 08/05/18 98.4 75 16 105/55 96 14:53 (72) 08/04/18 Room Air 17:49 Intake and Output 08/04/18 08/04/18 08/05/18 1515:00 23:00 07:00 IntakeIntake Total 360 ml 500 ml OutputOutput Total 30 ml BalanceBalance 360 ml 470 ml Results Result Diagram: 08/05/18 0452 08/05/18 0452 Results 24hrs Laboratory Tests Test 08/04/18 15:33 08/04/18 15:37 08/04/18 16:40 08/04/18 18:47 POC Venous Lactate 0.9 White Blood Count 16.2 #H Red Blood Count 4.79 # Hemoglobin 13.5 Hematocrit 41.6 # Mean Corpuscular Volume 86.8 Mean Corpuscular 28.2 L Hemoglobin Mean Corpuscular 32.5 Hemoglobin Concent Red Cell Distribution 14.7 H Width Platelet Count 196 Mean Platelet Volume 11.0 H Immature Granulocytes % 0.600 H Neutrophils % 62.8 Lymphocytes % 23.7 Monocytes % 12.1 H Eosinophils % 0.6 Basophils % 0.2 Nucleated Red Blood 0.0 Cells % Immature Granulocytes # 0.090 H Neutrophils # 10.2 H Lymphocytes # 3.8 H Monocytes # 2.0 H Eosinophils # 0.1 Basophils # 0.0 Nucleated Red Blood 0.0 Cells # Prothrombin Time 14.1 Prothrombin Time Ratio 1.1 INR International 1.08 Normalized Ratio Activated 34.0 Partial Thromboplast Time Sodium Level 137 Potassium Level 4.3 Chloride Level 102 Carbon Dioxide Level 27 Anion Gap 8 Blood Urea Nitrogen 14 Creatinine 0.79 Est Glomerular Filtrat Rate mL/min Glucose Level 97 Calcium Level 8.9 Total Bilirubin 1.4 H Direct Bilirubin 0.00 Indirect Bilirubin 1.4 H Aspartate Amino 25 Transf (AST/SGOT) Alanine 18 Aminotransferase (ALT/SG PT) Alkaline Phosphatase 85 Troponin I < 0.012 Total Protein 8.1 Albumin 4.1 Globulin 4.00 H Albumin/Globulin Ratio 1.02 Urine Color STRAW Urine Clarity CLEAR Urine pH 7.0 Urine Specific [place] 1.003 Urine Ketones NEGATIVE Urine Nitrite NEGATIVE Urine Bilirubin NEGATIVE Urine Urobilinogen NEGATIVE Urine Leukocyte Esterase NEGATIVE Urine Hemoglobin NEGATIVE Urine Glucose NEGATIVE Urine Total Protein NEGATIVE Lactic Acid Level 1.6 Test 08/04/18 19:36 08/05/18 04:52 Lactic Acid Level 1.3 White Blood Count 10.4 # Red Blood Count 4.02 L Hemoglobin 11.4 L Hematocrit 35.1 L Mean Corpuscular Volume 87.3 Mean Corpuscular 28.4 L Hemoglobin Mean Corpuscular 32.5 Hemoglobin Concent Red Cell Distribution 14.9 H Width Platelet Count 175 Mean Platelet Volume 11.6 H Immature Granulocytes % 0.400 Neutrophils % 61.6 Lymphocytes % 24.7 Monocytes % 10.7 Eosinophils % 2.1 Basophils % 0.5 Nucleated Red Blood 0.0 Cells % Immature Granulocytes # 0.040 H Neutrophils # 6.4 Lymphocytes # 2.6 Monocytes # 1.1 H Eosinophils # 0.2 Basophils # 0.1 Nucleated Red Blood 0.0 Cells # Sodium Level 141 Potassium Level 3.5 Chloride Level 110 Carbon Dioxide Level 26 Anion Gap 5 Blood Urea Nitrogen 14 Creatinine 0.67 Est Glomerular Filtrat Rate mL/min Glucose Level 130 Calcium Level 8.0 L Medications Medication Current Medications Ondansetron HCl (Zofran Inj) 4 mg BRIDGE ORDER PRN IV NAUSEA/VOMITING; Start at 17:00; Stop 08/05/18 at 16:59 Vancomycin HCl (Vanco Iv Per Pharmacy) VANCOMYCIN PER PHARMACY PER PROTOCOL XX ; Start 08/04/18 at 20:00 Piperacillin Sod/ Tazobactam Sod 50 ml @ 100 mls/hr Q6H IVPB ; Start 08/05/18 at 22:00 Acetaminophen (Tylenol Tab) 650 mg Q6H PRN PO MILD PAIN(1-3)OR ELEVATED TEMP Last administered on 08/05/18 12:37; Admin Dose 650 MG; Start 08/04/18 at 20:00 Acetaminophen/ Hydrocodone Bitart ([place] (5/325)) 1 tab Q6H PRN PO MODERATE PAIN LEVEL 4-6; Start 08/04/18 at 20:00 Vancomycin/Sodium Chloride 250 ml @ 125 mls/hr Q24H IVPB ; Start 08/05/18 at 17:00 Levetiracetam (Keppra) 500 mg BID PO Last administered on 08/05/18 08:32; Admin Dose 500 MG; Start 08/04/18 at 23:30 Levothyroxine Sodium (Synthroid) 25 mcg BEFORE BREAKFAST PO Last administered on 08/05/18 06:12; Admin Dose 25 MCG; Start 08/05/18 at 07:00 Timolol Maleate (Timoptic 0.5%) 1 drop BID RIGHT EYE Last administered on 08/05/18 08:33; Admin Dose 1 DROP; Start 08/04/18 at 23:30 Potassium Chloride/Sodium Chloride 1,000 ml @ 70 mls/hr [id number] IV Last administered on 08/05/18 10:53; Admin Dose 70 MLS/HR; Start 08/05/18 at 09:30 DOMINICK MORENO MD Aug 05, 2018 15:25
--- NOTE | 2018-08-05 15:26 | CONS ---
Assessment/Plan Assessment/Plan Hospital Course (Demo Recall) 1. Post op wound infection with S.aureus;awaiting final sensi 2. 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 She was noted to have cloudy drainage from JUAN and S.aureus has been isolated. She has been placed on Vancomycin. Interestingly the pathology revealed " focal ulceration associated with a few multinucleated giant cells with nuclear change mimicking viral cytopathic effect " The report went on to indicate " Herpes simplex virus (HSV1/HSV2) using immunohistochemical stain method will be performed on paraffin-embedded block (3) to verify the possibility of viral cytopathic effect and results will be issued in a subsequent report.". Constitutional: no complaints, improved Eyes: no complaints ENT: no complaints Respiratory: no complaints Cardiovascular: no complaints Gastrointestinal: no complaints Genitourinary: no complaints Musculoskeletal: no complaints Skin: no complaints Neurologic: no complaints Endocrine: no complaints Lymphatic: no complaints Psychological: no complaints, nl mood/affect Past Medical History Home Meds Reported Medications Timolol Maleate* (Timoptic*) 0.5%-5ml Opht, 1 DROP RIGHT EYE BID, #1 EA 07/30/18 Levothyroxine Sodium* (Levoxyl*) 25 Mcg Tablet, 25 MCG PO BEFORE BREAKFAST, #30 TAB 07/30/18 Levetiracetam* (Levetiracetam*) 500 Mg Tablet, 500 MG PO BID, TAB 07/30/18 Discontinued Reported Medications Omeprazole* (Omeprazole*) 40 Mg Capsule.dr, 40 MG PO DAILY 12/24/12 [Fish Oil] No Conflict Check, PO 10/15/12 [Vitamins] No Conflict Check, PO 10/15/12 Glucosamine Sulfate 2KCL (GLUCOSAMINE) 1,000 Mg Tablet, 1500 MG PO BID 10/15/12 Medications Current Medications Ondansetron HCl (Zofran Inj) 4 mg BRIDGE ORDER PRN IV NAUSEA/VOMITING; Start 08/04/18 at 17:00; Stop 08/05/18 at 16:59 Vancomycin HCl (Vanco Iv Per Pharmacy) VANCOMYCIN PER PHARMACY PER PROTOCOL XX ; Start 08/04/18 at 20:00 Piperacillin Sod/ Tazobactam Sod 50 ml @ 100 mls/hr Q6H IVPB ; Start 08/05/18 at 22:00 Acetaminophen (Tylenol Tab) 650 mg Q6H PRN PO MILD PAIN(1-3)OR ELEVATED TEMP Last administered on 08/05/18at 12:37; Admin Dose 650 MG; Start 08/04/18 at 20:00 Acetaminophen/ Hydrocodone Bitart ([place] (5/325)) 1 tab Q6H PRN PO MODERATE PAIN LEVEL 4-6; Start 08/04/18 at 20:00 Vancomycin/Sodium Chloride 250 ml @ 125 mls/hr Q24H IVPB ; Start 08/05/18 at 17:00 Levetiracetam (Keppra) 500 mg BID PO Last administered on 08/05/18at 08:32; Admin Dose 500 MG; Start 08/04/18 at 23:30 Levothyroxine Sodium (Synthroid) 25 mcg BEFORE BREAKFAST PO Last administered on 08/05/18at 06:12; Admin Dose 25 MCG; Start 08/05/18 at 07:00 Timolol Maleate (Timoptic 0.5%) 1 drop BID RIGHT EYE Last administered on 08/05/18at 08:33; Admin Dose 1 DROP; Start 08/04/18 at 23:30 Potassium Chloride/Sodium Chloride 1,000 ml @ 70 mls/hr [id number] IV Last administered on 08/05/18at 10:53; Admin Dose 70 MLS/HR; Start 08/05/18 at 09:30 Allergies: Coded Allergies: No Known Allergy (Unverified , 08/04/18) Past Surgical History Past Surgical Hx: other Social History Smoking Status: Never smoker Exam/Review of Systems Exam Vitals Vital Signs Date Temp Pulse Resp B/P (MAP) Pulse Ox O2 O2 Flow FiO2 Time Delivery Rate 08/05/18 98.4 75 16 105/55 96 14:53 (72) 08/04/18 Room Air 17:49 Intake and Output 08/04/18 08/04/18 08/05/18 1515:00 23:00 07:00 IntakeIntake Total 360 ml 500 ml OutputOutput Total 30 ml BalanceBalance 360 ml 470 ml Constitutional: alert, oriented, well developed Psych: no complaints, nl mood/affect Head: normocephalic, atraumatic Eyes: nl conjunctiva, EOMI, nl lids, nl sclera, PERRL ENMT: nl external ears & nose, nl lips & teeth, nl nasal mucosa & septum Respiratory: clear to auscultation, normal air movement Cardiovascular: regular rate and rhythm, nl pulses Gastrointestinal: soft, nl liver, spleen, non-tender Neurological: [employer] II-XII intact, nl mental status, nl speech, nl strength Skin: other (wound bandaged, drain in place ) Results Result Diagram: 08/05/18 0452 08/05/18 0452 Results 24hrs Laboratory Tests Test 08/04/18 15:33 08/04/18 15:37 08/04/18 16:40 08/04/18 18:47 POC Venous Lactate 0.9 White Blood Count 16.2 #H Red Blood Count 4.79 # Hemoglobin 13.5 Hematocrit 41.6 # Mean Corpuscular Volume 86.8 Mean Corpuscular 28.2 L Hemoglobin Mean Corpuscular 32.5 Hemoglobin Concent Red Cell Distribution 14.7 H Width Platelet Count 196 Mean Platelet Volume 11.0 H Immature Granulocytes % 0.600 H Neutrophils % 62.8 Lymphocytes % 23.7 Monocytes % 12.1 H Eosinophils % 0.6 Basophils % 0.2 Nucleated Red Blood 0.0 Cells % Immature Granulocytes # 0.090 H Neutrophils # 10.2 H Lymphocytes # 3.8 H Monocytes # 2.0 H Eosinophils # 0.1 Basophils # 0.0 Nucleated Red Blood 0.0 Cells # Prothrombin Time 14.1 Prothrombin Time Ratio 1.1 INR International 1.08 Normalized Ratio Activated 34.0 Partial Thromboplast Time Sodium Level 137 Potassium Level 4.3 Chloride Level 102 Carbon Dioxide Level 27 Anion Gap 8 Blood Urea Nitrogen 14 Creatinine 0.79 Est Glomerular Filtrat Rate mL/min Glucose Level 97 Calcium Level 8.9 Total Bilirubin 1.4 H Direct Bilirubin 0.00 Indirect Bilirubin 1.4 H Aspartate Amino 25 Transf (AST/SGOT) Alanine 18 Aminotransferase (ALT/SG PT) Alkaline Phosphatase 85 Troponin I < 0.012 Total Protein 8.1 Albumin 4.1 Globulin 4.00 H Albumin/Globulin Ratio 1.02 Urine Color STRAW Urine Clarity CLEAR Urine pH 7.0 Urine Specific [place] 1.003 Urine Ketones NEGATIVE Urine Nitrite NEGATIVE Urine Bilirubin NEGATIVE Urine Urobilinogen NEGATIVE Urine Leukocyte Esterase NEGATIVE Urine Hemoglobin NEGATIVE Urine Glucose NEGATIVE Urine Total Protein NEGATIVE Lactic Acid Level 1.6 Test 08/04/18 19:36 08/05/18 04:52 Lactic Acid Level 1.3 White Blood Count 10.4 # Red Blood Count 4.02 L Hemoglobin 11.4 L Hematocrit 35.1 L Mean Corpuscular Volume 87.3 Mean Corpuscular 28.4 L Hemoglobin Mean Corpuscular 32.5 Hemoglobin Concent Red Cell Distribution 14.9 H Width Platelet Count 175 Mean Platelet Volume 11.6 H Immature Granulocytes % 0.400 Neutrophils % 61.6 Lymphocytes % 24.7 Monocytes % 10.7 Eosinophils % 2.1 Basophils % 0.5 Nucleated Red Blood 0.0 Cells % Immature Granulocytes # 0.040 H Neutrophils # 6.4 Lymphocytes # 2.6 Monocytes # 1.1 H Eosinophils # 0.2 Basophils # 0.1 Nucleated Red Blood 0.0 Cells # Sodium Level 141 Potassium Level 3.5 Chloride Level 110 Carbon Dioxide Level 26 Anion Gap 5 Blood Urea Nitrogen 14 Creatinine 0.67 Est Glomerular Filtrat Rate mL/min Glucose Level 130 Calcium Level 8.0 L Medications Medication Current Medications Ondansetron HCl (Zofran Inj) 4 mg BRIDGE ORDER PRN IV NAUSEA/VOMITING; Start 08/04/18 at 17:00; Stop 08/05/18 at 16:59 Vancomycin HCl (Vanco Iv Per Pharmacy) VANCOMYCIN PER PHARMACY PER PROTOCOL XX ; Start 08/04/18 at 20:00 Piperacillin Sod/ Tazobactam Sod 50 ml @ 100 mls/hr Q6H IVPB ; Start 08/05/18 at 22:00 Acetaminophen (Tylenol Tab) 650 mg Q6H PRN PO MILD PAIN(1-3)OR ELEVATED TEMP Last administered on 08/05/18at 12:37; Admin Dose 650 MG; Start 08/04/18 at 20:00 Acetaminophen/ Hydrocodone Bitart ([place] (5/325)) 1 tab Q6H PRN PO MODERATE PAIN LEVEL 4-6; Start 08/04/18 at 20:00 Vancomycin/Sodium Chloride 250 ml @ 125 mls/hr Q24H IVPB ; Start 08/05/18 at 17:00 Levetiracetam (Keppra) 500 mg BID PO Last administered on 08/05/18at 08:32; Admin Dose 500 MG; Start 08/04/18 at 23:30 Levothyroxine Sodium (Synthroid) 25 mcg BEFORE BREAKFAST PO Last administered on 08/05/18at 06:12; Admin Dose 25 MCG; Start 08/05/18 at 07:00 Timolol Maleate (Timoptic 0.5%) 1 drop BID RIGHT EYE Last administered on 08/05at 08:33; Admin Dose 1 DROP; Start 08/04/18 at 23:30 Potassium Chloride/Sodium Chloride 1,000 ml @ 70 mls/hr [id number] IV Last administered on 08/05/18at 10:53; Admin Dose 70 MLS/HR; Start 08/05/18 at 09:30 DOMINICK MORENO MD Aug 05, 2018 15:26
[2018-08-05] MEDS ORDERED: VANCOMYCIN 750 MG (PMX) 250 ML IVPB SCH (17:00)
--- NOTE | 2018-08-05 17:27 | CONS ---
DATE OF ADMISSION: 08/04/2018 DATE OF CONSULTATION: 08/05/2018 TYPE OF CONSULTATION: Surgical. REQUESTING PHYSICIAN: Dr. Bean. REASON FOR CONSULTATION: To evaluate and follow up the patient who has got infection of the surgical wound. HISTORY OF PRESENT ILLNESS AND CHIEF COMPLAINT: This is an 88-year-old female who had excision of a lesion and mass from the skin and subcutaneous tissue of the left buttock area on 07/30/2018. According to the patient's daughter who lives with the patient and takes care of her, the patient after operation was doing fine until 08/03/2018. That is postop day #5 almost when the patient started to develop gradually more pain in the lower back at the site of operation and chills and fever, a temperature up to 101.6. So next day, which was yesterday, the patient was brought to the surgical clinic and I saw the patient in the clinic. The patient was febrile and there was evidence of cellulitis and infection of the surgical wound. So the patient was sent to the emergency room to be reevaluated and to be admitted and was admitted for medical service. Antibiotics, Zosyn and vancomycin, were started for the patient. PAST MEDICAL HISTORY: History of operation for the thyroid. also history of operation on the brain for removal of the meningioma, which was done about 2 years ago. 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 MEDICATIONS: 1. Keppra. 2. Timolol eye drops. 3. Levothyroxine. ALLERGIES: NOT KNOWN. REVIEW OF SYSTEMS: Also should be mentioned that the patient has had cataract operation on the eyes on the left. 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 PHYSICAL EXAMINATION GENERAL: Today, the patient is awake, alert, oriented x3. She is walking in her room. VITAL SIGNS: Today, temperature maximum 98.6, on admission it was 99.5. Heart rate is 73 today, respiration 16 and 20, blood pressure 93/55, saturation 96% nasal cannula 2 L. HEENT: Clinically, head and neck within normal limits. Left eye is blind. CHEST: Symmetrical expansion. HEART: Regular. LUNGS: Clear. ABDOMEN: Soft. EXTREMITIES: Lower extremity: No pitting edema. Examination of the sacrococcygeal and perineal area reveals that there is a Aftab-Klein drain, which is draining the lower midline surgical wound. There is cellulitis of the skin of this around the incision. This cellulitis is, I would say, about 40% better than yesterday when I saw the patient in the clinic. No fluctuation. The drainage material in the Aftab-Klein drain, which is under the skin flap which was created for closure of the wound, is serous fluid with some particles which appears to be fat cells and probably slightly turbid. Already last night, they have sent culture from this fluid. 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 Few multinucleated giant cells with nuclear changes mimicking viral cytopathic effect or margins of clear. No evidence of malignancy. The specimen was sent to [facility] for further evaluation to verify possibility of viral cytopathic effect. IMPRESSION: This is an 88-year-old female with status post resection of the lesion mass from the lower back. Pathology is negative for malignancy, but still the final report is pending from outside pathology department. 1. Postoperative wound infection and cellulitis. The patient has been started on IV vancomycin and Zosyn. 2. Hypothyroidism due to the 1 lobe thyroidectomy. The patient is on thyroxine. 3. Seizure disorder. The patient is secondary to brain operation for removal of meningioma. The patient is on Keppra. 4. Glaucoma. The patient is on timolol drops. Left parietal frontal meningioma status post resection. The patient was in hospital 2 years ago. I will continue to follow along with Dr. Bean and we have to continue the antibiotics since it appears that the patient is responding well, but still there is a possibility that we may have to open the surgical wound. Dictated By: CHIP ENRIQUE MD PS/NTS Conf#: [id number] DID#: [id number] CC: YULISA BEAN MD;*EndCC* MTDD
[2018-08-05] MEDS: ACYCLOVIR 500 MG in SOD CHLORIDE 0.9% 100 ML IVPB SCH (18:43)
[2018-08-05 19:55] VITALS: BP 119/56; PULSE 77; RESP 16
[2018-08-05] MEDS: PIPER-TAZO 2.25 GM (PMX) 50 ML IVPB SCH (21:28)
[2018-08-06 02:17] VITALS: BP 108/55; PULSE 67; RESP 18
[2018-08-06] MEDS: PIPER-TAZO 2.25 GM (PMX) 50 ML IVPB SCH ×2 (04:56→12:09)
[2018-08-06] MEDS: NS + KCL 20 MEQ 1,000 ML IV SCH (04:56)
[2018-08-06] MEDS: LEVOTHYROXINE 25 MCG TAB PO SCH (06:19)
[2018-08-06 07:58] VITALS: BP 121/58; PULSE 69; RESP 20
[2018-08-06] MEDS: TIMOLOL 0.5% 5 ML OPH RIGHT EYE SCH ×2 (09:53→20:49)
[2018-08-06] MEDS: ACYCLOVIR 500 MG in SOD CHLORIDE 0.9% 100 ML IVPB SCH ×2 (09:53→20:49)
[2018-08-06] MEDS: LEVETIRACETAM 500 MG TAB PO SCH ×2 (09:53→20:48)
[2018-08-06] MEDS: ACETAMINOPHEN 325 MG TAB PO PRN ×2 (10:11→21:55)
--- NOTE | 2018-08-06 12:10 | CONS ---
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 Ferreira via telemediq. Consultation Date/Type/Reason Admit Date/Time Aug 04, 2018 at 16:49 Initial Consult Date 08/05/18 Type of Consult ID Requesting Provider: JOSÉ PEREZ Date/Time of Note DATE: 08/06/18 TIME: 12:05 24 HR Interval Summary Free Text/Dictation Wound culture grew MSSA. Patient has remained afebrile. No acute issues were reported by nursing. Per patient's daughter at the bedside, patient has been c/o large amt of gas and abdominal bloating. Denies fevers, chills, sweats, sob, cp, cough, n/v. Does c/o loose stools since starting abx. States dressing was changed approx an hour ago. Pain 10/11. Exam/Review of Systems Exam Vitals Vital Signs Date Temp Pulse Resp B/P (MAP) Pulse Ox O2 O2 Flow FiO2 Time Delivery Rate 08/06/18 98.6 69 20 121/58 98 07:58 (79) 08/04/18 Room Air 17:49 Allergies Coded Allergies No Known Allergy (Unverified08/04/18) Intake and Output 08/05/18 08/05/18 08/06/18 1515:00 23:00 07:00 IntakeIntake Total 480 ml 1300 ml 1410 ml OutputOutput Total 30 ml BalanceBalance 480 ml 1270 ml 1410 ml Constitutional: alert, oriented, well developed, other (laying on her right side in bed ) Psych: nl mood/affect Head: normocephalic, atraumatic Eyes: nl lids, nl sclera, other (wearing glasses) ENMT: nl external ears & nose, nl nasal mucosa & septum, mucosa pink and moist (white/yellow coating on tongue) Neck: supple, non-tender (no swelling) Respiratory: clear to auscultation, normal air movement; No labored breathing, No wheezing Cardiovascular: regular rate and rhythm, nl pulses Gastrointestinal: soft, non-tender, bowel sounds (hyperactive), other (rounded) Musculoskeletal: nl extremities to inspection; No swelling Extremities: normal pulses; No edema Neurological: COTA II-XII intact, nl mental status, nl speech (mexican speaking), nl strength Skin: nl turgor, other (Left JUAN draining serosanguinous drainage mod amt, Sacral wound dressing is c/d/i - recently changed) Results Result Diagram: 08/05/18 0452 08/05/18 0452 Imaging Imaging CXR 08/04/18 IMPRESSION: 1. Mild cardiomegaly and an sclerotic aortic calcification. 2. COPD and chronic interstitial changes. 3. Mild left lower lobe atelectasis. 4. Mild S-shaped thoracic scoliosis Medications Medication Current Medications Vancomycin HCl (Vanco Iv Per Pharmacy) VANCOMYCIN PER PHARMACY PER PROTOCOL XX ; Start 08/04/18 at 20:00 Piperacillin Sod/ Tazobactam Sod 50 ml @ 100 mls/hr Q6H IVPB Last administered on 08/06/18at 04:56; Admin Dose 100 MLS/HR; Start 08/05/18 at 22:00 Acetaminophen (Tylenol Tab) 650 mg Q6H PRN PO MILD PAIN(1-3)OR ELEVATED TEMP Last administered on 08/06/18at 10:11; Admin Dose 650 MG; Start 08/04/18 at 20:00 Acetaminophen/ Hydrocodone Bitart ([place] (5/325)) 1 tab Q6H PRN PO MODERATE PAIN LEVEL 4-6; Start 08/04/18 at 20:00 Vancomycin/Sodium Chloride 250 ml @ 125 mls/hr Q24H IVPB Last administered on 08/05/18 16:27; Admin Dose 125 MLS/HR; Start 08/05/18 at 17:00 Levetiracetam (Keppra) 500 mg BID PO Last administered on 08/06/18 09:53; Admin Dose 500 MG; Start 08/04/18 at 23:30 Levothyroxine Sodium (Synthroid) 25 mcg BEFORE BREAKFAST PO Last administered on 08/06/18 06:19; Admin Dose 25 MCG; Start 08/05/18 at 07:00 Timolol Maleate (Timoptic 0.5%) 1 drop BID RIGHT EYE Last administered on 08/06/18 09:53; Admin Dose 1 DROP; Start 08/04/18 at 23:30 Potassium Chloride/Sodium Chloride 1,000 ml @ 70 mls/hr [id number] IV Last ad ministered on 08/06/18at 04:56; Admin Dose 70 MLS/HR; Start 08/05/18 at 09:30 Acyclovir 500 mg/ Sodium Chloride 100 ml @ 100 mls/hr Q12 IVPB Last administered on 08/06/18 09:53; Admin Dose 100 MLS/HR; Start 08/05/18 at 17:30 BRANDON SCHMITZ NP Aug 06, 2018 12:10
--- NOTE | 2018-08-06 13:21 | PN ---
Date/Time of Note Date/Time of Note DATE: 08/06/18 TIME: 13:19 Assessment/Plan VTE Prophylaxis Risk score (from [facility])>0 risk: 3 SCD applied (from [facility]): Yes Pharmacological prophylaxis: NA/contraindicated Pharm contraindication: surgical contra Lines/Catheters [facility] Peripheral IV Urinary Cath still in place: No Assessment/Plan Hospital Course Minimal drainage from JUAN, pt is afebrile, complains of left buttock pain. Assessment/Plan - Lower back mass, status post resection. Dr Noriega is following in surgical consultation. - Postop wound infection. Continue vancomycin, follow-up on final wound culture. Dr. Ferreira is following patient in infection disease consultation. - Hypothyroidism. Continue Synthroid. - Seizure disorder. Continue Keppra. - Glaucoma. Continue timolol. - Left frontoparietal meningioma, status post resection. - Right lower extremities weakness secondary to meningioma. Further recommendations based on clinical course. Plan of care discussed with Dr. Singh. Result Diagram: 08/05/1845108/05/18451 Exam/Review of Systems Exam Vitals Vital Signs Date Temp Pulse Resp B/P (MAP) Pulse Ox O2 O2 Flow FiO2 Time Delivery Rate 08/06/18 98.6 69 20 121/58 98 07:58 (79) 08/04/18 Room Air 17:49 Intake and Output 08/05/18 08/05/18 08/06/18 1414:59 22:59 06:59 IntakeIntake Total 480 ml 1300 ml 1410 ml OutputOutput Total 30 ml BalanceBalance 480 ml 1270 ml 1410 ml Exam Constitutional: alert, oriented Neck: supple Respiratory: clear to auscultation Cardiovascular: nl pulses Gastrointestinal: soft, non-tender Extremities: normal pulses Skin: other (left buttock surgical wound with drain) Medications Medication Current Medications Vancomycin HCl (Vanco Iv Per Pharmacy) VANCOMYCIN PER PHARMACY PER PROTOCOL XX ; Start 08/04/18 at 20:00 Piperacillin Sod/ Tazobactam Sod 50 ml @ 100 mls/hr Q6H IVPB Last administered on 08/06/18at 12:09; Admin Dose 100 MLS/HR; Start 08/05/18 at 22:00 Acetaminophen (Tylenol Tab) 650 mg Q6H PRN PO MILD PAIN(1-3)OR ELEVATED TEMP Last administered on 08/06/18 10:11; Admin Dose 650 MG; Start 08/04/18 at 20:00 Acetaminophen/ Hydrocodone Bitart ([place] (5/325)) 1 tab Q6H PRN PO MODERATE PAIN LEVEL 4-6; Start 08/04/18 at 20:00 Vancomycin/Sodium Chloride 250 ml @ 125 mls/hr Q24H IVPB Last administered on 08/05/18 16:27; Admin Dose 125 MLS/HR; Start 08/05/18 at 17:00 Levetiracetam (Keppra) 500 mg BID PO Last administered on 08/06/18 09:53; Admin Dose 500 MG; Start 08/04/18 at 23:30 Levothyroxine Sodium (Synthroid) 25 mcg BEFORE BREAKFAST PO Last administered on 08/06/18 06:19; Admin Dose 25 MCG; Start 08/05/18 at 07:00 Timolol Maleate (Timoptic 0.5%) 1 drop BID RIGHT EYE Last administered on 08/06/18 09:53; Admin Dose 1 DROP; Start 08/04/18 at 23:30 Potassium Chloride/Sodium Chloride 1,000 ml @ 70 mls/hr [id number] IV Last administered on 08/06/18 04:56; Admin Dose 70 MLS/HR; Start 08/05/18 at 09:30 Acyclovir 500 mg/ Sodium Chloride 100 ml @ 100 mls/hr Q12 IVPB Last administered on 08/06/18 09:53; Admin Dose 100 MLS/HR; Start 08/05/18 at 17:30 JOSÉ PEREZ Aug 06, 2018 13:21
[2018-08-06 13:47] VITALS: BP 106/57; PULSE 64; RESP 20
[2018-08-06] MEDS: CEFAZOLIN 1 GM/50 ML (PMX) 50 ML IVPB SCH ×2 (16:28→21:55)
--- NOTE | 2018-08-06 18:47 | PN ---
DATE: 08/06/2018 SUBJECTIVE: The patient has been admitted because of the cellulitis and infection of the surgical wound. The patient was febrile and had leukocytosis, started on antibiotics, and today which is second day of admission, patient is feeling better but still has some pain in the lower back. OBJECTIVE: GENERAL: Awake, alert, oriented. VITAL SIGNS: Temperature maximum today documented 98.6, heart rate 69, respirations 20, blood pressure 121/58, saturation 98% on room air. BACK: Focused exam on the lower back revealed the cellulitis, comparing to the day of admission, is at least about 50% to 60% better. Aftab-Klein drain which was somewhat bloody drainage now is serous, slightly turbid, and the amount of drainage has been 30 mL in the past 24 hours. The patient urinating okay and bowel movement is okay. Dressing was changed. LABORATORY DATA: There are no labs done yet today. Microbiology: The culture from the wound has revealed and has grown Staphylococcus aureus 3+ and sensitivity is available. PLAN: Continue current IV antibiotic which has been started by the Internal Medicine colleagues and observe and evaluate the wound every day. If the JUAN drainage drops significantly, we may remove it so that patient's pain can be lessened. We will continue to see the patient daily as long as she is in the hospital and provided treatment. Dictated By: CHIP ENRIQUE MD PS/NTS Conf#: [id number] DID#: [id number] CC: YULISA BEAN MD;*EndCC* MTDD
[2018-08-06] MEDS: NYSTATIN SUSP 5 ML CUP PO SCH ×2 (18:52→20:49)
[2018-08-06 19:31] VITALS: BP 129/61; PULSE 72; RESP 18
[2018-08-07] MEDS: NS + KCL 20 MEQ 1,000 ML IV SCH ×2 (01:20→20:03)
[2018-08-07 01:30] VITALS: BP 133/61; PULSE 71; RESP 18
[2018-08-07] MEDS: CEFAZOLIN 1 GM/50 ML (PMX) 50 ML IVPB SCH ×3 (06:21→23:24)
[2018-08-07] MEDS: LEVOTHYROXINE 25 MCG TAB PO SCH (06:21)
[2018-08-07 08:15] VITALS: BP 135/60; PULSE 64; RESP 18
[2018-08-07] MEDS: NYSTATIN SUSP 5 ML CUP PO SCH ×3 (09:08→18:29)
[2018-08-07] MEDS: ACYCLOVIR 500 MG in SOD CHLORIDE 0.9% 100 ML IVPB SCH ×2 (09:08→21:55)
[2018-08-07] MEDS: LEVETIRACETAM 500 MG TAB PO SCH ×2 (09:08→21:55)
[2018-08-07] MEDS: TIMOLOL 0.5% 5 ML OPH RIGHT EYE SCH ×2 (09:08→21:55)
[2018-08-07] MEDS: ACETAMINOPHEN 325 MG TAB PO PRN ×2 (09:14→20:02)
[2018-08-07 13:59] VITALS: BP 116/55; PULSE 70; RESP 18
--- NOTE | 2018-08-07 16:11 | PN ---
DATE: 08/07/2018 SUBJECTIVE: Continues to complain of low back pain at the site of the wound, incision and operation. OBJECTIVE: GENERAL: Awake, alert, sitting in a chair. VITAL SIGNS: Temperature maximum today 98, heart rate 70, respiration 18, blood pressure 116/55, saturation 100% room air. HEART: Regular. LUNGS: Clear. ABDOMEN: Soft. SKIN: Dressing was removed and the wound inspected. The cellulitis is the same as before yesterday. There is induration of subcutaneous tissue all around it. It is painful on deep pressure. LABORATORY DATA: Sodium, potassium, BUN, creatinine are normal 2 days ago. Hematology: Today, WBC is 5400 with 38% segmented, hemoglobin 11.8, hematocrit 37, platelet is 235. Coagulation of 3 days ago: INR is 1.08. INPUT AND OUTPUT: The amount of drainage from the Aftab-Klein drain in past 24 hours has been 70 mL which is yellowish cloudy fluid. HOSPITAL COURSE: Note the pathologist called today on the phone and informed me that from the specimen that they had sent outside, it has showed that there is herpes virus over there. The patient is being followed by infectious disease. Already, they have started the patient on acyclovir 500 mg IV q.12 hours and antibiotic accordingly has been changed to Ancef. ASSESSMENT AND PLAN: Even though there is no fluctuation but I think because of presence of Aftab-Klein which lets drainage of the fluid and prevents accumulation, we do not get collection but practically this is the infected wound which is deep also and probably kind of abscess formation; therefore, I think it is better for this patient and for the wound to be opened up and irrigated and washed thoroughly and let the wound be packed with Dakin solution wet to dry and let it to heal by secondary intention. I talked this plan of care with the patient's daughter and she accepted that, so we booked the patient for tomorrow and they are going to do incision of the wound and opening of the wound and possible debridement and drainage and irrigation. Dictated By: CHIP ENRIQUE MD PS/ELIZABETH Conf#: [id number] DID#: [id number] CC: YULISA BEAN MD;*EndCC* MTDD
--- NOTE | 2018-08-07 16:47 | PN ---
Date/Time of Note Date/Time of Note DATE: 08/07/18 TIME: 16:43 Assessment/Plan VTE Prophylaxis Risk score (from [facility])>0 risk: 3 SCD applied (from [facility]): Yes Pharmacological prophylaxis: NA/contraindicated Pharm contraindication: surgical contra Lines/Catheters IV [facility]ter Type (from [facility]): Peripheral IV Urinary Cath still in place: No Assessment/Plan Hospital Course Patient remains hemodynamically stable, afebrile pain is adequately controlled. Discussed with Dr. Noriega, plan for wound irrigation in OR tomorrow. Assessment/Plan - Lower back mass, status post resection. Dr Noriega is following in surgical consultation. - Postop wound infection with possible abscess. Continue antibiotics per ID. Dr. Ferreira is following patient in infection disease consultation. - Hypothyroidism. Continue Synthroid. - Seizure disorder. Continue Keppra. - Glaucoma. Continue timolol. - Left frontoparietal meningioma, status post resection. - Right lower extremities weakness secondary to meningioma. Further recommendations based on clinical course. Plan of care discussed with Dr. Singh. Result Diagram: 08/07/18 0451 08/05/18 0452 Results 24hrs Laboratory Tests Test 08/07/18 04:51 White Blood Count 5.4 # Red Blood Count 4.20 Hemoglobin 11.8 L Hematocrit 37.0 Mean Corpuscular Volume 88.1 Mean Corpuscular Hemoglobin 28.1 L Mean Corpuscular Hemoglobin Concent 31.9 L Red Cell Distribution Width 14.8 H Platelet Count 235 # Mean Platelet Volume 10.6 H Immature Granulocytes % 0.200 Neutrophils % 38.8 L Lymphocytes % 42.9 Monocytes % 10.7 Eosinophils % 6.3 Basophils % 1.1 Nucleated Red Blood Cells % 0.0 Immature Granulocytes # 0.010 Neutrophils # 2.1 Lymphocytes # 2.3 Monocytes # 0.6 Eosinophils # 0.3 Basophils # 0.1 Nucleated Red Blood Cells # 0.0 Exam/Review of Systems Exam Vitals Vital Signs Date Temp Pulse Resp B/P (MAP) Pulse Ox O2 O2 Flow FiO2 Time Delivery Rate 08/07/18 98.0 70 18 116/55 100 Room Air 13:59 (75) Intake and Output 08/06/18 08/06/18 08/07/18 1414:59 22:59 06:59 IntakeIntake Total 960 ml 1310 ml 700 ml OutputOutput Total 20 ml 30 ml 20 ml BalanceBalance 940 ml 1280 ml 680 ml Exam Constitutional: alert, oriented Neck: supple Respiratory: clear to auscultation Cardiovascular: nl pulses Gastrointestinal: soft, non-tender Extremities: normal pulses Skin: other (left buttock surgical wound with drain) Results Results 24hrs Laboratory Tests Test 08/07/18 04:51 White Blood Count 5.4 # Red Blood Count 4.20 Hemoglobin 11.8 L Hematocrit 37.0 Mean Corpuscular Volume 88.1 Mean Corpuscular Hemoglobin 28.1 L Mean Corpuscular Hemoglobin Concent 31.9 L Red Cell Distribution Width 14.8 H Platelet Count 235 # Mean Platelet Volume 10.6 H Immature Granulocytes % 0.200 Neutrophils % 38.8 L Lymphocytes % 42.9 Monocytes % 10.7 Eosinophils % 6.3 Basophils % 1.1 Nucleated Red Blood Cells % 0.0 Immature Granulocytes # 0.010 Neutrophils # 2.1 Lymphocytes # 2.3 Monocytes # 0.6 Eosinophils # 0.3 Basophils # 0.1 Nucleated Red Blood Cells # 0.0 Medications Medication Current Medications Acetaminophen (Tylenol Tab) 650 mg Q6H PRN PO MILD PAIN(1-3)OR ELEVATED TEMP Last administered on 08/07/18at 09:14; Admin Dose 650 MG; Start 08/04/18 at 20:00 Acetaminophen/ Hydrocodone Bitart ([place] (5/325)) 1 tab Q6H PRN PO MODERATE PAIN LEVEL 4-6; Start 08/04/18 at 20:00 Levetiracetam (Keppra) 500 mg BID PO Last administered on 08/07/18 09:08; Admin Dose 500 MG; Start 08/04/18 at 23:30 Levothyroxine Sodium (Synthroid) 25 mcg BEFORE BREAKFAST PO Last administered on 08/07/18 06:21; Admin Dose 25 MCG; Start 08/05/18 at 07:00 Timolol Maleate (Timoptic 0.5%) 1 drop BID RIGHT EYE Last administered on 08/07/18 09:08; Admin Dose 1 DROP; Start 08/04/18 at 23:30 Potassium Chloride/Sodium Chloride 1,000 ml @ 70 mls/hr [id number] IV Last administered on 08/07/18 01:20; Admin Dose 70 MLS/HR; Start 08/05/18 at 09:30 Acyclovir 500 mg/ Sodium Chloride 100 ml @ 100 mls/hr Q12 IVPB Last administered on 08/07/18at 09:08; Admin Dose 100 MLS/HR; Start 08/05/18 at 17:30 Cefazolin Sodium 50 ml @ 100 mls/hr Q8 IVPB Last administered on 08/07/18at 15:02; Admin Dose 100 MLS/HR; Start 08/06/18 at 15:30 Nystatin (Nystatin Susp) 5 ml QID PO Last administered on 08/07/18at 13:23; Admin Dose 5 ML; Start 08/06/18 at 17:00 JOSÉ PEREZ Aug 07, 2018 16:47
--- NOTE | 2018-08-07 17:26 | PREAC ---
Date/Time of Note Date/Time of Note DATE: 08/07/18 TIME: 17:25 Anesthesia Eval and Record Evaluation Time Pre-Procedure Interview DATE: 08/07/18 TIME: 17:25 Age 88 Sex female NPO: 8 hrs Preoperative diagnosis abscess formation Planned procedure INCISION AND DRAINAGE SACRAL WOUND Past Medical History Past Medical History: Includes Endo: Hypothyroid Neuro: Seizure disorder, Other (left frontoparietal meningioma status post resection) Surgery & Anesthesia Issues No known issue Meds Anticoagulation: No Beta Sherly within 24 hr: No Reason Beta Sherly not given: Pt. not on B-Sherly Reported Medications Timolol Maleate* (Timoptic*) 0.5%-5ml Opht, 1 DROP RIGHT EYE BID, #1 EA 07/30/18 Levothyroxine Sodium* (Levoxyl*) 25 Mcg Tablet, 25 MCG PO BEFORE BREAKFAST, #30 TAB 07/30/18 Levetiracetam* (Levetiracetam*) 500 Mg Tablet, 500 MG PO BID, TAB 07/30/18 Current Medications Acetaminophen (Tylenol Tab) 650 mg Q6H PRN PO MILD PAIN(1-3)OR ELEVATED TEMP Last administered on 08/07/18at 09:14; Admin Dose 650 MG; Start 08/04/18 at 20:00 Acetaminophen/ Hydrocodone Bitart ([place] (5/325)) 1 tab Q6H PRN PO MODERATE PAIN LEVEL 4-6; Start 08/04/18 at 20:00 Levetiracetam (Keppra) 500 mg BID PO Last administered on 08/07/18at 09:08; Admin Dose 500 MG; Start 08/04/18 at 23:30 Levothyroxine Sodium (Synthroid) 25 mcg BEFORE BREAKFAST PO Last administered on 08/07/18at 06:21; Admin Dose 25 MCG; Start 08/05/18 at 07:00 Timolol Maleate (Timoptic 0.5%) 1 drop BID RIGHT EYE Last administered on 08/07/18at 09:08; Admin Dose 1 DROP; Start 08/04/18 at 23:30 Potassium Chloride/Sodium Chloride 1,000 ml @ 70 mls/hr [id number] IV Last administered on 08/07/18at 01:20; Admin Dose 70 MLS/HR; Start 08/05/18 at 09:30 Acyclovir 500 mg/ Sodium Chloride 100 ml @ 100 mls/hr Q12 IVPB Last administered on 08/07/18at 09:08; Admin Dose 100 MLS/HR; Start 08/05/18 at 17:30 Cefazolin Sodium 50 ml @ 100 mls/hr Q8 IVPB Last administered on 08/07/18at 15:02; Admin Dose 100 MLS/HR; Start 08/06/18 at 15:30 Nystatin (Nystatin Susp) 5 ml QID PO Last administered on 08/07/18at 13:23; Admin Dose 5 ML; Start 08/06/18 at 17:00 Meds reviewed: Yes Allergies Coded Allergies: No Known Allergy (Unverified , 08/04/18) Allergies Reviewed: Yes Labs/Studies Labs Reviewed: Reviewed by anesthesiologist Result Diagram: 08/07/18 0451 08/05/18 0452 Laboratory Tests 08/07/18 04:51 test: N/A Studies: CXR (There is mild cardiomegaly and an sclerotic aortic calcification. Bony vessels are normal in caliber. Chronic interstitial changes are seen. There is slight hyperinflation lungs suggesting element of COPD. The costophrenic angles sharp. Bones are osteopenic. There is surgical clips in the right neck.) Pre-procedure Exam Last vitals Vital Signs Date Temp Pulse Resp B/P (MAP) Pulse Ox O2 O2 Flow FiO2 Time Delivery Rate 08/07/18 98.0 70 18 116/55 100 Room Air 13:59 (75) Airway: Adequate mouth opening Mallampati: Mallampati II Teeth: Normal Lung: Normal Heart: Normal ASA Physical Status ASA physical status: 3 Emergency: None Planned Anesthetic General/MAC: ETT Pre-operative Attestations Prior to commencing anesthesia and surgery, the patient was re-evaluated, there was verification of: *The patient's identity *The results of appropriate recent lab work and preoperative vital signs *The above evaluation not changing prior to induction *Anesthetic plan, risk benefits, alternative and complications discussed with patient/family; questions answered; patient/family understands, accepts and wishes to proceed. VENKAT TONEY Aug 07, 2018 17:26
--- NOTE | 2018-08-07 20:05 | CONS ---
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 Ferreira Consultation Date/Type/Reason Admit Date/Time Aug 04, 2018 at 16:49 Initial Consult Date 08/05/18 Type of Consult Infectious Disease Requesting Provider: JOSÉ PEREZ Date/Time of Note DATE: 08/07/18 TIME: 19:37 24 HR Interval Summary Free Text/Dictation Pt is going for MRI tonight and surgery tomorrow per d/w nursing. Pt c/o incisional pain rating 8/10. Denies n/v/d, dysuria. Exam/Review of Systems Exam Vitals Vital Signs Date Temp Pulse Resp B/P (MAP) Pulse Ox O2 O2 Flow FiO2 Time Delivery Rate 08/07/18 98.0 70 18 116/55 100 Room Air 13:59 (75) Intake and Output 08/06/18 08/06/18 08/07/18 1515:00 23:00 07:00 IntakeIntake Total 960 ml 1310 ml 700 ml OutputOutput Total 20 ml 30 ml 20 ml BalanceBalance 940 ml 1280 ml 680 ml Exam Constitutional: alert, oriented, well developed, other (walked from bathroom to bed with daughter's assist and now laying on her abdomen) Psych: nl mood/affect Head: normocephalic, atraumatic Eyes: nl lids, nl sclera, other (wearing glasses) ENMT: nl external ears & nose, nl nasal mucosa & septum, mucosa pink and moist (no thrush noted) Neck: supple, non-tender (no swelling) Respiratory: clear to auscultation, normal air movement; No labored breathing, No wheezing Cardiovascular: regular rate and rhythm, nl pulses Gastrointestinal: soft, non-tender, bowel sounds (normoactive) Musculoskeletal: nl extremities to inspection; No swelling Extremities: normal pulses; No edema Neurological: nl mental status, nl speech (Indian speaking), nl strength Skin: nl turgor, other (Left sacral JUAN intact with serosanguinous drainage, Sacral wound is covered c/d/i) Results Result Diagram: 08/07/18 0451 08/05/18 0452 Results 24hrs Low back lesion biopsy 07/30/2018: Skin lesion of lower back, excision: -- Pseudoepitheliomatous hyperplasia with papillomatosis, parakeratosis, s uperficial severe chronic inflammation and focal ulceration associated with a few multinucleated giant cells with nuclear change mimicking viral cytopathic effect (please see comment). -- All margins are clear of the lesion involvement. -- No definite malignancy is identified. COMMENT: Herpes simplex virus (HSV1/HSV2) using immunohistochemical stain method will be performed on paraffin-embedded block (3) to verify the possibility of viral cytopathic effect and results will be issued in a subsequent report. This case has been reviewed by a member of the group, Dr. Yousif Dominguez and he concurs. Laboratory Tests Test 08/07/18 04:51 White Blood Count 5.4 # Red Blood Count 4.20 Hemoglobin 11.8 L Hematocrit 37.0 Mean Corpuscular Volume 88.1 Mean Corpuscular Hemoglobin 28.1 L Mean Corpuscular Hemoglobin Concent 31.9 L Red Cell Distribution Width 14.8 H Platelet Count 235 # Mean Platelet Volume 10.6 H Immature Granulocytes % 0.200 Neutrophils % 38.8 L Lymphocytes % 42.9 Monocytes % 10.7 Eosinophils % 6.3 Basophils % 1.1 Nucleated Red Blood Cells % 0.0 Immature Granulocytes # 0.010 Neutrophils # 2.1 Lymphocytes # 2.3 Monocytes # 0.6 Eosinophils # 0.3 Basophils # 0.1 Nucleated Red Blood Cells # 0.0 Imaging Imaging CXR 08/04/2018: 1. Mild cardiomegaly and an sclerotic aortic calcification. 2. COPD and chronic interstitial changes. 3. Mild left lower lobe atelectasis. 4. Mild S-shaped thoracic scoliosis Medications Medication Current Medications Acetaminophen (Tylenol Tab) 650 mg Q6H PRN PO MILD PAIN(1-3)OR ELEVATED TEMP Last administered on 08/07/18 09:14; Admin Dose 650 MG; Start 08/04/18 at 20:00 Acetaminophen/ Hydrocodone Bitart ([place] (5/325)) 1 tab Q6H PRN PO MODERATE PAIN LEVEL 4-6; Start 08/04/18 at 20:00 Levetiracetam (Keppra) 500 mg BID PO Last administered on 08/07/18 09:08; Admin Dose 500 MG; Start 08/04/18 at 23:30 Levothyroxine Sodium (Synthroid) 25 mcg BEFORE BREAKFAST PO Last administered on 08/07/18 06:21; Admin Dose 25 MCG; Start 08/05/18 at 07:00 Timolol Maleate (Timoptic 0.5%) 1 drop BID RIGHT EYE Last administered on 9at 09:08; Admin Dose 1 DROP; Start 08/04/18 at 23:30 Potassium Chloride/Sodium Chloride 1,000 ml @ 70 mls/hr [id number] IV Last administered on 08/07/18 01:20; Admin Dose 70 MLS/HR; Start 08/05/18 at 09:30 Acyclovir 500 mg/ Sodium Chloride 100 ml @ 100 mls/hr Q12 IVPB Last administered on 08/07/18 09:08; Admin Dose 100 MLS/HR; Start 08/05/18 at 17:30 Cefazolin Sodium 50 ml @ 100 mls/hr Q8 IVPB Last administered on 08/07/18 15:02; Admin Dose 100 MLS/HR; Start 08/06/18 at 15:30 Nystatin (Nystatin Susp) 5 ml QID PO Last administered on 08/07/18at 18:29; Admin Dose 5 ML; Start 08/06/18 at 17:00 OBDULIO ALEXANDRE NP Aug 07, 2018 19:47
[2018-08-08] VITALS (12 sets, daily range): BP systolic 102–146; BP diastolic 52–77; PULSE 52–74; RESP 16–22
[2018-08-08] MEDS: CEFAZOLIN 1 GM/50 ML (PMX) 50 ML IVPB SCH ×3 (05:38→23:20)
--- NOTE | 2018-08-08 06:03 | PN ---
Date/Time of Note Date/Time of Note DATE: 08/08/18 TIME: 06:00 Assessment/Plan VTE Prophylaxis Risk score (from [facility] [place])>0 risk: 3 SCD applied (from [facility] [place]): No SCD contraindicated: other Pharmacological prophylaxis: other Pharm contraindication: other Lines/Catheters IV [facility] Type ([facility] Peripheral IV Urinary Cath still in place: No Assessment/Plan Assessment/Plan - Lower back mass, status post resection. Dr Noriega is following in surgical consultation. - Postop wound infection with possible abscess. Continue antibiotics per ID. Dr. Ferreira is following patient in infection disease consultation. - Hypothyroidism. Continue Synthroid. - Seizure disorder. Continue Keppra. - Glaucoma. Continue timolol. - Left frontoparietal meningioma, status post resection. - Right lower extremities weakness secondary to meningioma. Further recommendations based on clinical course. Plan of care discussed with Dr. Singh. Result Diagram: 08/08/18 0436 08/05/18 0452 Results 24hrs Laboratory Tests Test 08/08/18 04:36 White Blood Count 5.2 Red Blood Count 4.04 L Hemoglobin 11.4 L Hematocrit 35.8 L Mean Corpuscular Volume 88.6 Mean Corpuscular Hemoglobin 28.2 L Mean Corpuscular Hemoglobin Concent 31.8 L Red Cell Distribution Width 14.7 H Platelet Count 242 Mean Platelet Volume 10.6 H Immature Granulocytes % 0.200 Neutrophils % 36.6 L Lymphocytes % 46.4 Monocytes % 10.0 Eosinophils % 5.8 Basophils % 1.0 Nucleated Red Blood Cells % 0.0 Immature Granulocytes # 0.010 Neutrophils # 1.9 Lymphocytes # 2.4 Monocytes # 0.5 Eosinophils # 0.3 Basophils # 0.1 Nucleated Red Blood Cells # 0.0 Sodium Level 142 Potassium Level 4.8 Chloride Level 111 H Carbon Dioxide Level 24 Anion Gap 7 Blood Urea Nitrogen 9 Creatinine 0.57 Est Glomerular Filtrat Rate mL/min Glucose Level 94 Calcium Level 8.7 Total Bilirubin 0.3 Direct Bilirubin 0.00 Indirect Bilirubin 0.3 Aspartate Amino Transf (AST/SGOT) 18 Alanine Aminotransferase (ALT/SGPT) 17 Alkaline Phosphatase 60 Total Protein 6.1 Albumin 3.1 L Globulin 3.00 Albumin/Globulin Ratio 1.03 Subjective 24 Hr Interval Summary Free Text/Dictation nad; vss seems comfortable no events overnight SNF placement when stable Going for I & D today . dw staff Exam/Review of Systems Exam Vitals Vital Signs Date Temp Pulse Resp B/P (MAP) Pulse Ox O2 O2 Flow FiO2 Time Delivery Rate 08/08/18 98.9 66 17 102/53 95 02:14 (69) 08/07/18 Room Air 13:59 Intake and Output 08/07/18 08/07/18 08/08/18 1515:00 23:00 07:00 IntakeIntake Total 820 ml 1090 ml 50 ml OutputOutput Total 20 ml 20 ml BalanceBalance 820 ml 1070 ml 30 ml Constitutional: alert, well developed Psych: nl mood/affect Eyes: nl lids, nl sclera ENMT: nl external ears & nose Neck: non-tender Respiratory: clear to auscultation Cardiovascular: nl pulses, other (s1s2) Gastrointestinal: soft, non-tender Musculoskeletal: muscle weakness Extremities: normal pulses Neurological: other (alert/reponsive) Lymph: nontender Results Results 24hrs Laboratory Tests Test 08/08/18 04:36 White Blood Count 5.2 Red Blood Count 4.04 L Hemoglobin 11.4 L Hematocrit 35.8 L Mean Corpuscular Volume 88.6 Mean Corpuscular Hemoglobin 28.2 L Mean Corpuscular Hemoglobin Concent 31.8 L Red Cell Distribution Width 14.7 H Platelet Count 242 Mean Platelet Volume 10.6 H Immature Granulocytes % 0.200 Neutrophils % 36.6 L Lymphocytes % 46.4 Monocytes % 10.0 Eosinophils % 5.8 Basophils % 1.0 Nucleated Red Blood Cells % 0.0 Immature Granulocytes # 0.010 Neutrophils # 1.9 Lymphocytes # 2.4 Monocytes # 0.5 Eosinophils # 0.3 Basophils # 0.1 Nucleated Red Blood Cells # 0.0 Sodium Level 142 Potassium Level 4.8 Chloride Level 111 H Carbon Dioxide Level 24 Anion Gap 7 Blood Urea Nitrogen 9 Creatinine 0.57 Est Glomerular Filtrat Rate mL/min Glucose Level 94 Calcium Level 8.7 Total Bilirubin 0.3 Direct Bilirubin 0.00 Indirect Bilirubin 0.3 Aspartate Amino Transf (AST/SGOT) 18 Alanine Aminotransferase (ALT/SGPT) 17 Alkaline Phosphatase 60 Total Protein 6.1 Albumin 3.1 L Globulin 3.00 Albumin/Globulin Ratio 1.03 Medications Medication Current Medications Acetaminophen (Tylenol Tab) 650 mg Q6H PRN PO MILD PAIN(1-3)OR ELEVATED TEMP Last administered on 08/07/18 20:02; Admin Dose 650 MG; Start 08/04/18 at 20:00 Acetaminophen/ Hydrocodone Bitart ([place] (5/325)) 1 tab Q6H PRN PO MODERATE PAIN LEVEL 4-6; Start 08/04/18 at 20:00 Levetiracetam (Keppra) 500 mg BID PO Last administered on 08/07/18 21:55; Admin Dose 500 MG; Start 08/04/18 at 23:30 Levothyroxine Sodium (Synthroid) 25 mcg BEFORE BREAKFAST PO Last administered on 08/07/18 06:21; Admin Dose 25 MCG; Start 08/05/18 at 07:00 Timolol Maleate (Timoptic 0.5%) 1 drop BID RIGHT EYE Last administered on 08/07/18 21:55; Admin Dose 1 DROP; Start 08/04/18 at 23:30 Potassium Chloride/Sodium Chloride 1,000 ml @ 70 mls/hr [id number] IV Last administered on 08/07/18 20:03; Admin Dose 70 MLS/HR; Start 08/05/18 at 09:30 Acyclovir 500 mg/ Sodium Chloride 100 ml @ 100 mls/hr Q12 IVPB Last administered on 08/07/18 21:55; Admin Dose 100 MLS/HR; Start 08/05/18 at 17:30 Cefazolin Sodium 50 ml @ 100 mls/hr Q8 IVPB Last administered on 08/08/18 05:38; Admin Dose 100 MLS/HR; Start 08/06/18 at 15:30 KRISSY WILKINSON Aug 08, 2018 06:03
[2018-08-08] MEDS ORDERED: SEVOFLURANE 15 MIN ONE (07:00)
[2018-08-08] MEDS: LEVOTHYROXINE 25 MCG TAB PO SCH (07:00)
[2018-08-08] MEDS: ACYCLOVIR 500 MG in SOD CHLORIDE 0.9% 100 ML IVPB SCH ×2 (08:36→22:11)
[2018-08-08] MEDS: NS + KCL 20 MEQ 1,000 ML IV SCH ×2 (08:36→21:40)
[2018-08-08] MEDS: LEVETIRACETAM 500 MG TAB PO SCH ×2 (08:36→22:11)
[2018-08-08] MEDS: TIMOLOL 0.5% 5 ML OPH RIGHT EYE SCH ×2 (08:36→22:12)
--- NOTE | 2018-08-08 10:00 | CONS ---
Assessment/Plan Assessment/Plan Hospital Course (Demo Recall) 1. Post op wound infection with S.aureus;awaiting final sensi 2. 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 iv acyclovir - await final path studies - check BMP periodically while Pt's on acyclovir - cont. cefazolin - f/u MRI - wound care and periodic picts - monitor drainage Consultation Date/Type/Reason Admit Date/Time Aug 04, 2018 at 16:49 Initial Consult Date 08/05/18 Type of Consult ID Requesting Provider: JOSÉ PEREZ Date/Time of Note DATE: 08/07/18 TIME: 12 pm 24 HR Interval Summary Free Text/Dictation late entry for 6.6.190 Exam/Review of Systems Exam Vitals Vital Signs Date Temp Pulse Resp B/P (MAP) Pulse Ox O2 O2 Flow FiO2 Time Delivery Rate 08/08/18 98.5 66 17 112/55 97 Room Air 08:08 (74) Intake and Output 08/07/18 08/07/18 08/08/18 1515:00 23:00 07:00 IntakeIntake Total 820 ml 1090 ml 100 ml OutputOutput Total 20 ml 20 ml BalanceBalance 820 ml 1070 ml 80 ml Constitutional: alert, oriented Psych: no complaints Eyes: EOMI Cardiovascular: regular rate and rhythm Neurological: [employer]ON[employer] II-XII intact Skin: other (wound bandaged) Results Result Diagram: 08/08/18 0436 08/08/18 0436 Results 24hrs Laboratory Tests Test 08/08/18 04:36 White Blood Count 5.2 Red Blood Count 4.04 L Hemoglobin 11.4 L Hematocrit 35.8 L Mean Corpuscular Volume 88.6 Mean Corpuscular Hemoglobin 28.2 L Mean Corpuscular Hemoglobin Concent 31.8 L Red Cell Distribution Width 14.7 H Platelet Count 242 Mean Platelet Volume 10.6 H Immature Granulocytes % 0.200 Neutrophils % 36.6 L Lymphocytes % 46.4 Monocytes % 10.0 Eosinophils % 5.8 Basophils % 1.0 Nucleated Red Blood Cells % 0.0 Immature Granulocytes # 0.010 Neutrophils # 1.9 Lymphocytes # 2.4 Monocytes # 0.5 Eosinophils # 0.3 Basophils # 0.1 Nucleated Red Blood Cells # 0.0 Sodium Level 142 Potassium Level 4.8 Chloride Level 111 H Carbon Dioxide Level 24 Anion Gap 7 Blood Urea Nitrogen 9 Creatinine 0.57 Est Glomerular Filtrat Rate mL/min Glucose Level 94 Calcium Level 8.7 Total Bilirubin 0.3 Direct Bilirubin 0.00 Indirect Bilirubin 0.3 Aspartate Amino Transf (AST/SGOT) 18 Alanine Aminotransferase (ALT/SGPT) 17 Alkaline Phosphatase 60 Total Protein 6.1 Albumin 3.1 L Globulin 3.00 Albumin/Globulin Ratio 1.03 Medications Medication Current Medications Acetaminophen (Tylenol Tab) 650 mg Q6H PRN PO MILD PAIN(1-3)OR ELEVATED TEMP Last administered on 08/07/18 20:02; Admin Dose 650 MG; Start 08/04/18 at 20:00 Acetaminophen/ Hydrocodone Bitart ([place] (5/325)) 1 tab Q6H PRN PO MODERATE PAIN LEVEL 4-6; Start 08/04/18 at 20:00 Levetiracetam (Keppra) 500 mg BID PO Last administered on 08/07/18 21:55; Admin Dose 500 MG; Start 08/04/18 at 23:30 Levothyroxine Sodium (Synthroid) 25 mcg BEFORE BREAKFAST PO Last administered on 08/07/18 06:21; Admin Dose 25 MCG; Start 08/05/18 at 07:00 Timolol Maleate (Timoptic 0.5%) 1 drop BID RIGHT EYE Last administered on 08/08/18 08:36; Admin Dose 1 DROP; Start 08/04/18 at 23:30 Potassium Chloride/Sodium Chloride 1,000 ml @ 70 mls/hr [id number] IV Last administered on 08/07/18 20:03; Admin Dose 70 MLS/HR; Start 08/05/18 at 09:30 Acyclovir 500 mg/ Sodium Chloride 100 ml @ 100 mls/hr Q12 IVPB Last administered on 08/08/18 08:36; Admin Dose 100 MLS/HR; Start 08/05/18 at 17:30 Cefazolin Sodium 50 ml @ 100 mls/hr Q8 IVPB Last administered on 08/08/18at 05:38; Admin Dose 100 MLS/HR; Start 08/06/18 at 15:30 DOMINICK MORENO MD Aug 08, 2018 10:00
--- NOTE | 2018-08-08 11:25 | CONS ---
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 I asked pt's RN to remind OR nurse. - Monitor JUAN drainage - Continue local wound care Management d/w patient, pt's daughter, REBECCA Baca, and with Dr. Ferreira. Also italo ledesma d/w Dr. Noriega Consultation Date/Type/Reason Admit Date/Time Aug 04, 2018 at 16:49 Initial Consult Date 08/05/18 Type of Consult Infectious Disease Requesting Provider: JOSÉ PEREZ Date/Time of Note DATE: 08/08/18 TIME: 11:24 24 HR Interval Summary Free Text/Dictation MRI did not show abscess or OM. Recent Path positive for herpes simplex per d/w Dr. Noriega. Pt has recurrent sacral pain fairly controlled with current pain regimen. Daughter reports pain was aggravated after Surgeon examined pt. No n/v/d, dysuria, dysphagia. Exam/Review of Systems Exam Vitals Vital Signs Date Temp Pulse Resp B/P (MAP) Pulse Ox O2 O2 Flow FiO2 Time Delivery Rate 08/08/18 98.5 66 17 112/55 97 Room Air 08:08 (74) Intake and Output 08/07/18 08/07/18 08/08/18 1515:00 23:00 07:00 IntakeIntake Total 820 ml 1090 ml 100 ml OutputOutput Total 20 ml 20 ml BalanceBalance 820 ml 1070 ml 80 ml Exam Constitutional: alert, oriented, well developed, other (sitting at side of bed in NAD; daughter arrived later) Psych: nl mood/affect Head: normocephalic, atraumatic Eyes: nl lids, nl sclera, other (wearing glasses) ENMT: nl external ears & nose, nl nasal mucosa & septum, mucosa pink and moist (no thrush noted; slightly beige coating on tongue r/t hygiene) Neck: supple, non-tender (no swelling) Respiratory: clear to auscultation, normal air movement; No labored breathing, No wheezing Cardiovascular: regular rate and rhythm, nl pulses Gastrointestinal: soft, non-tender, bowel sounds (normoactive) Musculoskeletal: nl extremities to inspection; No swelling Extremities: normal pulses; No edema Neurological: nl mental status, nl speech (Japanese speaking), nl strength Skin: nl turgor, other (Left sacral JUAN intact with serosanguinous drainage, Sacral wound is covered c/d/i) Results Result Diagram: 08/08/18 0436 08/08/18 0436 Results 24hrs Low back lesion biopsy 07/30/2018: GROSS EXAMINATION: Received in formalin is an ellipse of coronado-brown skin that is oriented with a double long suture to indicate superior and double short suture to indicate the left side. The skin surface measures 4.6 cm superior to inferior and 1.7 cm left to right. The skin is excised to a depth of 1.1 cm. A circumscribed nodular lopez-coronado, granular surface mass on the skin surface measures 2.0 x 1.4 cm and is 0.3 cm raised above the skin surface.. This mass is 1.4 cm from the superior margin, 1.4 cm from the inferior tip and 0.3 cm from both the left and right edges. The superior tip is marked with blue ink, inferior tip with green ink, the left side is marked with yellow ink, the right side is marked with red ink and the deep margin with black ink. Sectioned in a left to right plane and totally submitted in seven cassettes as follows: Cassette 1, superior tip; cassette 2, inferior tip; cassettes 3-5, the central lesion, totally submitted to include left and right side and deep margins; cassette 6, remaining superior end and cassette 7, remaining inferior end. HERPES SIMPLEX VIRUS 1&2 (HSV 1/2) BY IHC: HSV 1/2 by IHC is performed and interpreted at [facility] on formalin-fixed, paraffin-embedded block (3) containing skin lesion with the area suspicious of viral cytopathic effect. The results of the HSV 1/2 is reported as "Positive." Please see attached report from [facility]. 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 -- All margins are clear of the lesion involvement. -- No definite malignancy is identified. COMMENT: The above findings are reported to Dr. Angel Noriega on 08/07/18. This case has been reviewed by a member of the group, Dr. Yousif Dominguez and he concurs. Laboratory Tests Test 08/08/18 04:36 White Blood Count 5.2 Red Blood Count 4.04 L Hemoglobin 11.4 L Hematocrit 35.8 L Mean Corpuscular Volume 88.6 Mean Corpuscular Hemoglobin 28.2 L Mean Corpuscular Hemoglobin Concent 31.8 L Red Cell Distribution Width 14.7 H Platelet Count 242 Mean Platelet Volume 10.6 H Immature Granulocytes % 0.200 Neutrophils % 36.6 L Lymphocytes % 46.4 Monocytes % 10.0 Eosinophils % 5.8 Basophils % 1.0 Nucleated Red Blood Cells % 0.0 Immature Granulocytes # 0.010 Neutrophils # 1.9 Lymphocytes # 2.4 Monocytes # 0.5 Eosinophils # 0.3 Basophils # 0.1 Nucleated Red Blood Cells # 0.0 Sodium Level 142 Potassium Level 4.8 Chloride Level 111 H Carbon Dioxide Level 24 Anion Gap 7 Blood Urea Nitrogen 9 Creatinine 0.57 Est Glomerular Filtrat Rate mL/min Glucose Level 94 Calcium Level 8.7 Total Bilirubin 0.3 Direct Bilirubin 0.00 Indirect Bilirubin 0.3 Aspartate Amino Transf (AST/SGOT) 18 Alanine Aminotransferase (ALT/SGPT) 17 Alkaline Phosphatase 60 Total Protein 6.1 Albumin 3.1 L Globulin 3.00 Albumin/Globulin Ratio 1.03 Imaging Imaging MRI scarum 08/07/2018: 1. Small drainage catheter extending from the left lower buttock region to the deep subcutaneous tissues posterior to the sacrococcygeal junction. Enhancement about the drain without significant corresponding edema likely granulation. No peripheral enhancing fluid collection/abscess identified. 2. Presacral venous prominence likely representing hyperemia. 3. Nonspecific T2 signal hyperintensity/post contrast enhancement in the epidural space at the level of the sacral hiatus which may also be related to engorged veins although inflammatory/infectious etiology cannot be excluded. 4. No reactive osteitis or osteomyelitis identified. Medications Medication Current Medications Acetaminophen (Tylenol Tab) 650 mg Q6H PRN PO MILD PAIN(1-3)OR ELEVATED TEMP Last administered on 08/07/18 20:02; Admin Dose 650 MG; Start 08/04/18 at 20:00 Acetaminophen/ Hydrocodone Bitart ([place] (5/325)) 1 tab Q6H PRN PO MODERATE PAIN LEVEL 4-6; Start 08/04/18 at 20:00 Levetiracetam (Keppra) 500 mg BID PO Last administered on 08/07/18 21:55; Admin Dose 500 MG; Start 08/04/18 at 23:30 Levothyroxine Sodium (Synthroid) 25 mcg BEFORE BREAKFAST PO Last administered on 08/07/18 06:21; Admin Dose 25 MCG; Start 08/05/18 at 07:00 Timolol Maleate (Timoptic 0.5%) 1 drop BID RIGHT EYE Last administered on 08/08/18 08:36; Admin Dose 1 DROP; Start 08/04/18 at 23:30 Potassium Chloride/Sodium Chloride 1,000 ml @ 70 mls/hr [id number] IV Last administered on 08/07/18 20:03; Admin Dose 70 MLS/HR; Start 08/05/18 at 09:30 Acyclovir 500 mg/ Sodium Chloride 100 ml @ 100 mls/hr Q12 IVPB Last administered on 08/08/18 08:36; Admin Dose 100 MLS/HR; Start 08/05/18 at 17:30 Cefazolin Sodium 50 ml @ 100 mls/hr Q8 IVPB Last administered on 08/08/18 05:38; Admin Dose 100 MLS/HR; Start 08/06/18 at 15:30 OBDULIO ALEXANDRE NP Aug 08, 2018 11:25
--- NOTE | 2018-08-08 13:07 | HPN ---
Date/Time of Note Date/Time of Note DATE: 08/08/18 TIME: 13:02 Interval H&P Admission Note Pt. seen H&P reviewed: Systems changes noted below (since admission the temp.has almost droped to normal. the leukocyte count has decreased, but pt contineus to complain of pain over wound area and cellulitis partially resolved and induration persists and drainage from JUAN has contineud.) CHIP ENRIQUE MD Aug 08, 2018 13:07
--- NOTE | 2018-08-08 13:08 | HPN ---
Date/Time of Note Date/Time of Note DATE: 08/08/18 TIME: 13:08 Interval H&P Admission Note Pt. seen H&P reviewed: No system changes CHIP ENRIQUE MD Aug 08, 2018 13:08
--- NOTE | 2018-08-08 13:12 | HPN ---
Date/Time of Note Date/Time of Note DATE: 08/08/18 TIME: 13:12 Interval H&P Admission Note Pt. seen H&P reviewed: Systems changes noted below (Systems changes noted below (since admission the temp.has almost droped to normal. the leukocyte count has decreased, but pt contineus to complain of pain over wound area and cellulitis partially resolved and induration persists and drainage from JUAN has contineud.)) CHIP ENRIQUE MD Aug 08, 2018 13:12
[2018-08-08] MEDS ORDERED: ROCURONIUM 50 MG INJ ONE (13:27)
[2018-08-08] MEDS ORDERED: PROPOFOL 20 ML ONE (13:27)
[2018-08-08] MEDS ORDERED: FENTAnyl 50 MCG/ML VIAL ONE (13:27)
[2018-08-08] MEDS ORDERED: CEFAZOLIN 1 GM INJ ONE ×2 (13:27→13:53)
[2018-08-08] MEDS ORDERED: FENTAnyl 50 MCG/ML VIAL IV PRN ×2 (13:30)
[2018-08-08] MEDS ORDERED: ONDANSETRON 4 MG INJ IV PRN (13:30)
[2018-08-08] MEDS ORDERED: HYDROmorphONE 1 MG/5 ML IV SYRINGE IV PRN ×2 (13:30)
[2018-08-08] MEDS ORDERED: ONDANSETRON 4 MG INJ ONE (13:53)
[2018-08-08] MEDS ORDERED: DEXAMETHASONE 4 MG/ML 5 ML INJ ONE (13:53)
[2018-08-08] MEDS ORDERED: METOCLOPRAMIDE 10 MG INJ ONE (13:53)
[2018-08-08] MEDS ORDERED: SUGAMMADEX SODIUM 200 MG/2 ML VIAL IV ONE (14:16)
--- NOTE | 2018-08-08 14:26 | PAC ---
Date/Time of Note Date/Time of Note DATE: 08/08/18 TIME: 14:25 Post-Anesthesia Notes Post-Anesthesia Note Last documented vital signs Vital Signs Date Temp Pulse Resp B/P (MAP) Pulse Ox O2 O2 Flow FiO2 Time Delivery Rate 08/08/18 98.5 66 17 112/55 97 Room Air 14:22 (74) Activity: WNL Respiratory function: WNL Cardiovascular function: WNL Mental status: Baseline Pain reasonably controlled: Yes Hydration appropriate: Yes Nausea/Vomiting absent: Yes BOLA COKER MD Aug 08, 2018 14:26
--- NOTE | 2018-08-08 17:24 | RADRPT ---
Vent Rate: 66 bpm RR Interval: 916 msec TX Interval: 218 msec QRS Duration: 69 msec QT Interval: 404 msec QTC Interval: 422 msec P-R-T [place]: 37 - 66 - 54 degrees Sinus rhythm...normal P axis, V-rate 50- 99 Borderline prolonged TX interval...TX >212, V-rate 50- 90 Lead(s) aVL were not used for morphology analysis Electronically Signed By: Rodolfo Carmona
--- NOTE | 2018-08-08 18:05 | OPR ---
DATE OF OPERATION: 08/08/2018 SURGEON: Angel Enrique MD RESEARCH SOFTWARE ENGINEER: None. ANESTHESIA: General. ANESTHESIOLOGIST: Cornelio Ybarra MD PREOPERATIVE DIAGNOSIS: Infected presacral surgical wound with cellulitis, abscess and induration. POSTOPERATIVE DIAGNOSIS: Infected presacral surgical wound with cellulitis, abscess and induration. PROCEDURES: 1. Incision and drainage of the wound. 2. Thorough irrigation with hydrogen peroxide, normal saline and Betadine. 3. Packing of the wound with soaked Kerlix in Betadine solution. ESTIMATED BLOOD LOSS: Nil. COMPLICATIONS: None. SPECIMEN: Culture from inside of the wound at the tip of the Aftab-Klein catheter was sent for aerobic and anaerobic. 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 The patient who had the operation on 08/04/2018 came to the office complaining of chills, fever and pain in the lower back. Examination revealed presence of cellulitis, tenderness and febrile episode for the patient and from the Aftab-Klein drain which was left previously under the flaps of the skin in that area. Purulent serosanguineous fluid was coming out. The patient was admitted urgently for the infection and treatment. The patient was started on antibiotics. Culture was sent from the wound. The patient gradually became afebrile. Leukocytosis came down, but the pain continued to bother the patient's sacral area around the wound and induration slightly improved but after 4 days, still the patient was complaining of pain and induration there and cellulitis partially was better and drainage from Aftab-Klein has continued to be 40 to 50 mL relatively purulent fluid. Therefore, Dr. Enrique decided that it is better to explore the wound and wash the wound and leave the wound open for daily dressing with Betadine solution and one week Dakin solution. This was discussed with the patient and daughter. The daughter accepted and the patient accepted and the patient was scheduled for operation today. PROCEDURE IN DETAILS: The patient was brought to the operating room, placed on [facility]. The patient was intubated with endotracheal intubation and general anesthesia was induced. Then, the patient was transferred to the operating table in prone position. Care was taken to pad all the prominent bony areas to prevent damage to the skin. The timeout was called. The patient was identified, site of operation, the scheduled procedure was discussed among the team. A 2 grams of Ancef was given to the patient IV by the anesthesiologist. The area of the operation was prepped and draped under sterile fashion. At this time, the sutures anchoring the drain to the skin of the perineal area were removed and then the midline suture that was used to close the skin was removed and then the deeper layer sutures were removed. There was some purulent material deep in the wound over the fascia of the sacrococcygeal. This was thoroughly irrigated with hydrogen peroxide and Betadine and as much as possible, this purulent slough was removed and then the remaining of the wound was left as an open wound and was packed with Kerlix moistened with Betadine and then on top of it more dry dressing and lap pad was placed and taped to the buttock skin. The patient tolerated procedure well. It should be mentioned that the culture was sent for anaerobic and aerobic examination. Sponges and needles count reported correct x2. The patient was transferred to the [facility] and extubated in stable condition. Dictated By: ANGEL ENRIQUE MD PS/ELIZABETH Conf#: [id number] DID#: [id number] CC: YULISA BEAN MD;*EndCC* MTDD
[2018-08-09 02:58] VITALS: BP 99/53; PULSE 61; RESP 17
[2018-08-09] MEDS: CEFAZOLIN 1 GM/50 ML (PMX) 50 ML IVPB SCH ×3 (05:44→22:13)
[2018-08-09] MEDS: LEVOTHYROXINE 25 MCG TAB PO SCH (05:44)
[2018-08-09 07:28] VITALS: BP 117/56; PULSE 63; RESP 17
[2018-08-09] MEDS: LEVETIRACETAM 500 MG TAB PO SCH ×2 (08:39→21:02)
[2018-08-09] MEDS: TIMOLOL 0.5% 5 ML OPH RIGHT EYE SCH ×2 (08:39→21:02)
[2018-08-09] MEDS: ACYCLOVIR 500 MG in SOD CHLORIDE 0.9% 100 ML IVPB SCH ×2 (09:19→21:02)
--- NOTE | 2018-08-09 13:14 | PN ---
DATE: 08/09/2018 Postop day #1 status post incision and drainage of the infected surgical wound and thorough irrigation with hydrogen peroxide and packing with saline soaked in Betadine. SUBJECTIVE: The patient feels okay. No specific complaint. Pain is much less per daughter's statement, scale is about 5/10. The patient tolerating diet. No nausea, no vomiting. OBJECTIVE: VITAL SIGNS: Temperature 98.1, heart rate 63, respirations 17, blood pressure 117/56, saturation 95% on room air. LABORATORY DATA: No lab was done today. CLINICAL EXAMINATION: Attention to the dressing, dressing is intact. Considering that it was packed with Betadine soaked sponges, I prefer to change dressing tomorrow that means on Saturday after 48 hours. Otherwise, the patient is very well stable. PLAN: Continue current care with change of dressing as of tomorrow. Dictated By: CHIP ENRIQUE MD PS/NTS Conf#: [id number] DID#: [id number] CC: YULISA BEAN MD;*EndCC* MTDD
--- NOTE | 2018-08-09 15:08 | PN ---
Date/Time of Note Date/Time of Note DATE: 08/09/18 TIME: 15:08 Assessment/Plan VTE Prophylaxis Risk score (from Ns)>0 risk: 6 SCD applied (from [facility]): Yes SCD contraindicated: other Pharmacological prophylaxis: other Pharm contraindication: other Lines/Catheters IV Catheter Type (from [facility] Peripheral IV Urinary Cath still in place: No Assessment/Plan Assessment/Plan - Lower back mass, status post resection. Dr Noriega is following in surgical consultation. - Postop wound infection with possible abscess. Continue antibiotics per ID. Dr. Ferreira is following patient in infection disease consultation. - Hypothyroidism. Continue Synthroid. - Seizure disorder. Continue Keppra. - Glaucoma. Continue timolol. - Left frontoparietal meningioma, status post resection. - Right lower extremities weakness secondary to meningioma. Further recommendations based on clinical course. Plan of care discussed with Dr. Singh. Result Diagram: 08/08/186 08/08/18435 Subjective 24 Hr Interval Summary Free Text/Dictation nad patient is up in chair; feels better no events overnight dw staff Constitutional: improved Eyes: no complaints ENT: no complaints Respiratory: no complaints Cardiovascular: no complaints Gastrointestinal: no complaints Genitourinary: no complaints Musculoskeletal: no complaints Skin: other (tolerable pain at lowe back - mass removal site) Neurologic: no complaints Endocrine: no complaints Psychological: nl mood/affect Immunologic: no complaints Exam/Review of Systems Exam Vitals Vital Signs Date Temp Pulse Resp B/P (MAP) Pulse Ox O2 O2 Flow FiO2 Time Delivery Rate 08/09/18 98.1 63 17 117/56 95 Room Air 07:28 (76) 08/08/18 8.0 14:33 Intake and Output 08/08/18 08/08/18 08/09/18 1515:00 23:00 07:00 IntakeIntake Total 1065 ml 605 ml 760 ml OutputOutput Total 15 ml BalanceBalance 1050 ml 605 ml 760 ml Constitutional: alert, well developed Psych: nl mood/affect Head: normocephalic Eyes: nl lids, nl sclera ENMT: nl external ears & nose Neck: non-tender Respiratory: clear to auscultation Cardiovascular: nl pulses, other (s1s2) Gastrointestinal: soft, non-tender Musculoskeletal: nl extremities to inspection Extremities: normal pulses Neurological: nl speech Skin: other (Lower back mass, status post resection- DDI ) Lymph: nontender Medications Medication Current Medications Acetaminophen (Tylenol Tab) 650 mg Q6H PRN PO MILD PAIN(1-3)OR ELEVATED TEMP Last administered on 08/07/18 20:02; Admin Dose 650 MG; Start 08/04/18 at 20:00 Acetaminophen/ Hydrocodone Bitart ([place] (5/325)) 1 tab Q6H PRN PO MODERATE PAIN LEVEL 4-6; Start 08/04/18 at 20:00 Levetiracetam (Keppra) 500 mg BID PO Last administered on 08/09/18 08:39; Admin Dose 500 MG; Start 08/04/18 at 23:30 Levothyroxine Sodium (Synthroid) 25 mcg BEFORE BREAKFAST PO Last administered on 08/09/18 05:44; Admin Dose 25 MCG; Start 08/05/18 at 07:00 Timolol Maleate (Timoptic 0.5%) 1 drop BID RIGHT EYE Last administered on 08/09/18 08:39; Admin Dose 1 DROP; Start 08/04/18 at 23:30 Potassium Chloride/Sodium Chloride 1,000 ml @ 70 mls/hr [id number] IV Last administered on 08/08/18 21:40; Admin Dose 70 MLS/HR; Start 08/05/18 at 09:30 Acyclovir 500 mg/ Sodium Chloride 100 ml @ 100 mls/hr Q12 IVPB Last administered on 08/09/18 09:19; Admin Dose 100 MLS/HR; Start 08/05/18 at 17:30 Cefazolin Sodium 50 ml @ 100 mls/hr Q8 IVPB Last administered on 08/09/18 14:06; Admin Dose 100 MLS/HR; Start 08/06/18 at 15:30 Sodium Hypochlorite (Dakins Diluted (40)) 1 applic BID TP ; Start 08/10/18 at 09:00 KRISSY WILKINSON Aug 09, 2018 15:08
[2018-08-09 15:17] VITALS: BP 111/53; PULSE 72; RESP 20
--- NOTE | 2018-08-09 16:34 | CONS ---
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 Ferreira. Also briefly d/w Dr. Noriega earlier. Consultation Date/Type/Reason Admit Date/Time Aug 04, 2018 at 16:49 Initial Consult Date 08/05/18 Type of Consult Infectious Disease Requesting Provider: JOSÉ PEREZ Date/Time of Note DATE: 08/09/18 TIME: 16:30 24 HR Interval Summary Free Text/Dictation S/p I&D, irrigation and packing and JUAN drain removal yesterday. Intraop cx growing Staph Aureus. Remains afebrile. Dressing changed earlier by Dr. Noriega and plans to start dressing change with Dakin's solution tomorrow. Pt c/o increased pain with getting out of bed or standing. Currently incisional pain is tolerable. No n/v/d, dysuria. Had normal BM today per pt's daughter. Exam/Review of Systems Exam Vitals Vital Signs Date Temp Pulse Resp B/P (MAP) Pulse Ox O2 O2 Flow FiO2 Time Delivery Rate 08/09/18 97.5 72 20 111/53 96 15:17 (72) 08/09/18 Room Air 07:28 08/08/18 8.0 14:33 Intake and Output 08/08/18 08/08/18 08/09/18 1515:00 23:00 07:00 IntakeIntake Total 1065 ml 605 ml 760 ml OutputOutput Total 15 ml BalanceBalance 1050 ml 605 ml 760 ml Exam Constitutional: alert, oriented, well developed, other (walking around in room in NAD; daughter at bedside) Psych: nl mood/affect Head: normocephalic, atraumatic Eyes: nl lids, nl sclera, other (wearing glasses) ENMT: nl external ears & nose (wearing hearing aids), nl nasal mucosa & septum, mucosa pink and moist (no thrush noted; slight beige coating on tongue r/t hygi mahesh) Neck: supple, non-tender (no swelling) Respiratory: clear to auscultation, normal air movement; No labored breathing, No wheezing Cardiovascular: regular rate and rhythm, nl pulses Gastrointestinal: soft, non-tender, bowel sounds (normoactive) Musculoskeletal: nl extremities to inspection; No swelling Extremities: normal pulses; No edema Neurological: nl mental status, nl speech (Persian speaking), nl strength Skin: nl turgor, other (sacral wound with large dressing with slight stain, dry, and intact) Results Result Diagram: 08/08/1843508/08/18435 Medications Medication Current Medications Acetaminophen (Tylenol Tab) 650 mg Q6H PRN PO MILD PAIN(1-3)OR ELEVATED TEMP Last administered on 08/07/18at 20:02; Admin Dose 650 MG; Start 08/04/18 at 20:00 Acetaminophen/ Hydrocodone Bitart ([place] (5/325)) 1 tab Q6H PRN PO MODERATE PAIN LEVEL 4-6; Start 08/04/18 at 20:00 Levetiracetam (Keppra) 500 mg BID PO Last administered on 08/09/18at 08:39; Admin Dose 500 MG; Start 08/04/18 at 23:30 Levothyroxine Sodium (Synthroid) 25 mcg BEFORE BREAKFAST PO Last administered on 08/09/18at 05:44; Admin Dose 25 MCG; Start 08/05/18 at 07:00 Timolol Maleate (Timoptic 0.5%) 1 drop BID RIGHT EYE Last administered on 08/09/18 08:39; Admin Dose 1 DROP; Start 08/04/18 at 23:30 Potassium Chloride/Sodium Chloride 1,000 ml @ 70 mls/hr [id number] IV Last administered on 08/08/18at 21:40; Admin Dose 70 MLS/HR; Start 08/05/18 at 09:30 Acyclovir 500 mg/ Sodium Chloride 100 ml @ 100 mls/hr Q12 IVPB Last administered on 08/09/18at 09:19; Admin Dose 100 MLS/HR; Start 08/05/18 at 17:30 Cefazolin Sodium 50 ml @ 100 mls/hr Q8 IVPB Last administered on 08/09/18at 14:06; Admin Dose 100 MLS/HR; Start 08/06/18 at 15:30 Sodium Hypochlorite (Dakins Diluted (40)) 1 applic BID TP ; Start 08/10/18 at 09:00 OBDULIO ALEXANDRE NP Aug 09, 2018 16:34
[2018-08-09] MEDS: NS + KCL 20 MEQ 1,000 ML IV SCH (17:45)
[2018-08-09 20:17] VITALS: BP 108/55; PULSE 73; RESP 18
[2018-08-10 01:20] VITALS: BP 129/59; PULSE 67; RESP 18
[2018-08-10] MEDS: NS + KCL 20 MEQ 1,000 ML IV SCH ×2 (03:54→13:22)
[2018-08-10] MEDS: LEVOTHYROXINE 25 MCG TAB PO SCH (06:11)
[2018-08-10] MEDS: CEFAZOLIN 1 GM/50 ML (PMX) 50 ML IVPB SCH ×3 (06:11→21:57)
[2018-08-10 08:02] VITALS: BP 124/57; PULSE 63; RESP 16
[2018-08-10] MEDS: LEVETIRACETAM 500 MG TAB PO SCH ×2 (08:45→20:57)
[2018-08-10] MEDS: DAKINS 0.0125%(1/40) 473 ML SOLUTION TP SCH ×2 (08:45→20:59)
[2018-08-10] MEDS: ACYCLOVIR 500 MG in SOD CHLORIDE 0.9% 100 ML IVPB SCH ×2 (08:45→20:57)
[2018-08-10] MEDS: TIMOLOL 0.5% 5 ML OPH RIGHT EYE SCH ×2 (08:45→20:57)
--- NOTE | 2018-08-10 10:09 | PN ---
Date/Time of Note Date/Time of Note DATE: 08/10/18 TIME: 10:06 Assessment/Plan VTE Prophylaxis Risk score (from [facility] [place] risk: 5 SCD applied (from [facility] [place] No SCD contraindicated: other Pharmacological prophylaxis: other Pharm contraindication: other Lines/Catheters IV Catheter Type (from [facility]): Peripheral IV Urinary Cath still in place: No Assessment/Plan Assessment/Plan - Lower back mass, status post resection. Dr Noriega is following in surgical consultation. - Postop wound infection with possible abscess. Continue antibiotics per ID. Dr. Ferreira is following patient in infection disease consultation. - Hypothyroidism. Continue Synthroid. - Seizure disorder. Continue Keppra. - Glaucoma. Continue timolol. - Left frontoparietal meningioma, status post resection. - Right lower extremities weakness secondary to meningioma. Further recommendations based on clinical course. Plan of care discussed with Dr. Singh. Result Diagram: 08/08/1843508/08/18435 Subjective 24 Hr Interval Summary Free Text/Dictation - NAD - afebrile - lower bach -DDI - Nursing will change dressing today dw staff Constitutional: improved Eyes: no complaints ENT: no complaints Respiratory: no complaints Cardiovascular: no complaints Gastrointestinal: pain Genitourinary: no complaints Musculoskeletal: no complaints Skin: no complaints Neurologic: no complaints Endocrine: no complaints Lymphatic: no complaints Psychological: no complaints Exam/Review of Systems Exam Vitals Vital Signs Date Temp Pulse Resp B/P (MAP) Pulse Ox O2 O2 Flow FiO2 Time Delivery Rate 08/10/18 98.9 63 16 124/57 96 Room Air 08:02 (79) 08/08/18 8.0 14:33 Intake and Output 08/09/18 08/09/18 08/10/18 1515:00 23:00 07:00 IntakeIntake Total 390 ml 1310 ml 820 ml BalanceBalance 390 ml 1310 ml 820 ml Constitutional: alert, well developed Psych: nl mood/affect Head: normocephalic Eyes: nl lids, nl sclera ENMT: nl external ears & nose Neck: non-tender Respiratory: clear to auscultation Cardiovascular: other (s1s2) Gastrointestinal: soft, non-tender Musculoskeletal: nl extremities to inspection Extremities: normal pulses Neurological: nl mental status, nl speech Skin: other (lower shar- DDI ) Medications Medication Current Medications Acetaminophen (Tylenol Tab) 650 mg Q6H PRN PO MILD PAIN(1-3)OR ELEVATED TEMP Last administered on 08/07/18 20:02; Admin Dose 650 MG; Start 08/04/18 at 20:00 Acetaminophen/ Hydrocodone Bitart ([place] (5/325)) 1 tab Q6H PRN PO MODERATE PAIN LEVEL 4-6; Start 08/04/18 at 20:00 Levetiracetam (Keppra) 500 mg BID PO Last administered on 08/10/18 08:45; Admin Dose 500 MG; Start 08/04/18 at 23:30 Levothyroxine Sodium (Synthroid) 25 mcg BEFORE BREAKFAST PO Last administered on 08/10/18 06:11; Admin Dose 25 MCG; Start 08/05/18 at 07:00 Timolol Maleate (Timoptic 0.5%) 1 drop BID RIGHT EYE Last administered on 08/10/18 08:45; Admin Dose 1 DROP; Start 08/04/18 at 23:30 Potassium Chloride/Sodium Chloride 1,000 ml @ 70 mls/hr [id number] IV Last administered on 08/09/18 17:45; Admin Dose 70 MLS/HR; Start 08/05/18 at 09:30 Acyclovir 500 mg/ Sodium Chloride 100 ml @ 100 mls/hr Q12 IVPB Last administered on 08/10/18 08:45; Admin Dose 100 MLS/HR; Start 08/05/18 at 17:30 Cefazolin Sodium 50 ml @ 100 mls/hr Q8 IVPB Last administered on 08/10/18 06:11; Admin Dose 100 MLS/HR; Start 08/06/18 at 15:30 Sodium Hypochlorite (Dakins Diluted (1/40)) 1 applic BID TP Last administered on 08/10/18 08:45; Admin Dose 1 APPLIC; Start 08/10/18 at 09:00 KRISSY WILKINSON Aug 10, 2018 10:09
--- NOTE | 2018-08-10 12:32 | PN ---
DATE: 08/10/2018 Postop day #2 status post incision and drainage of the posterior lower back infected wound. SUBJECTIVE: Mild pain. OBJECTIVE: Awake, alert, walking in the hallway with the help of cane and assisted by her daughter. VITAL SIGNS: Temperature maximum 98.9, heart rate 67, respiration 18, blood pressure 129/59, saturation 96% on room air. LABORATORY DATA: No lab has been done today. PHYSICAL EXAMINATION: GENERAL: Alert, awake. HEART: Regular. LUNGS: Clear. ABDOMEN: Soft. The dressing has been changed by Phuong, the nurse and she said the wound is clean so she removed the packing that had been placed in the operating room and packed with sponges soaked in Dakin solution to have it as a wet to dry dressing b.i.d. LABORATORY DATA: The culture that was sent from the operating room has grown Staphylococcus aureus, sensitive to most of the antibiotics including cefazolin that the patient is getting now. PLAN: Continue current care, IV antibiotics and local care. On Saturday, we are going to request a home health and make an arrangement for sending a nurse to patient's home to change dressing at least once a day. When that is established, the patient can be discharged with antibiotics per the infectious disease recommendation. She will be followed in the office by me. Dictated By: CHIP GARDNER/ELIZABETH Conf#: [id number] DID#: [id number] MTDD
[2018-08-10 14:00] VITALS: BP 110/55; PULSE 69; RESP 17
--- NOTE | 2018-08-10 19:52 | CONS ---
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 diff - F/u AM CBC and BMP - Continue local wound care Management d/w patient, pt's daughter, medical voucher clerk, and with Dr. Ferreira. Consultation Date/Type/Reason Admit Date/Time Aug 04, 2018 at 16:49 Initial Consult Date 08/05/18 Type of Consult Infectious Disease Requesting Provider: JOSÉ PEREZ Date/Time of Note DATE: 08/10/18 TIME: 19:51 24 HR Interval Summary Free Text/Dictation Intraop cultures also growing MSSA. Wound care being done with Dakin's solution. Daughter reports that pt had 5 episodes of loose stool today after drinking prune juice. Pt c/o umbilical hernia discomfort with exertion. Sacral incisional pain worsens with exertion. Exam/Review of Systems Exam Vitals Vital Signs Date Temp Pulse Resp B/P (MAP) Pulse Ox O2 O2 Flow FiO2 Time Delivery Rate 08/10/18 98.1 69 17 110/55 96 Room Air 14:00 (73) 08/08/18 8.0 14:33 Intake and Output 08/09/18 08/09/18 08/10/18 1515:00 23:00 07:00 IntakeIntake Total 390 ml 1310 ml 820 ml BalanceBalance 390 ml 1310 ml 820 ml Exam Constitutional: alert, oriented, well developed, other (just came from bathroom and in NAD; daughter at bedside) Psych: nl mood/affect Head: normocephalic, atraumatic Eyes: other (L eye with opacity; wearing glasses) ENMT: nl external ears & nose (wearing hearing aids), nl nasal mucosa & septum, mucosa pink and moist (no thrush noted; slight beige coating on tongue r/t hygiene which has improved) Neck: supple, non-tender (no swelling) Respiratory: clear to auscultation, normal air movement; No labored breathing, No wheezing Cardiovascular: regular rate and rhythm, nl pulses Gastrointestinal: soft, non-tender, bowel sounds (normoactive), other (umbilical hernia with mild TTP) Musculoskeletal: nl extremities to inspection; No swelling Extremities: normal pulses; No edema Neurological: nl mental status, nl speech (T[place]anian speaking), nl strength Skin: nl turgor, other (sacral wound with large dressing c/d/i) Results Result Diagram: 08/08/1843508/08/18435 Medications Medication Current Medications Acetaminophen (Tylenol Tab) 650 mg Q6H PRN PO MILD PAIN(1-3)OR ELEVATED TEMP Last administered on 08/07/18 20:02; Admin Dose 650 MG; Start 08/04/18 at 20:00 Acetaminophen/ Hydrocodone Bitart ([place] (5/325)) 1 tab Q6H PRN PO MODERATE PAIN LEVEL 4-6; Start 08/04/18 at 20:00 Levetiracetam (Keppra) 500 mg BID PO Last administered on 08/10/18 08:45; Admin Dose 500 MG; Start 08/04/18 at 23:30 Levothyroxine Sodium (Synthroid) 25 mcg BEFORE BREAKFAST PO Last administered on 08/10/18 06:11; Admin Dose 25 MCG; Start 08/05/18 at 07:00 Timolol Maleate (Timoptic 0.5%) 1 drop BID RIGHT EYE Last administered on 08/10/18 08:45; Admin Dose 1 DROP; Start 08/04/18 at 23:30 Potassium Chloride/Sodium Chloride 1,000 ml @ 70 mls/hr [id number] IV Last administered on 08/10/18 13:22; Admin Dose 70 MLS/HR; Start 08/05/18 at 09:30 Acyclovir 500 mg/ Sodium Chloride 100 ml @ 100 mls/hr Q12 IVPB Last administered on 08/10/18at 08:45; Admin Dose 100 MLS/HR; Start 08/05/18 at 17:30 Cefazolin Sodium 50 ml @ 100 mls/hr Q8 IVPB Last administered on 08/10/18at 14:21; Admin Dose 100 MLS/HR; Start 08/06/18 at 15:30 Sodium Hypochlorite (Dakins Diluted (/40)) 1 applic BID TP Last administered on 08/10/18at 08:45; Admin Dose 1 APPLIC; Start 08/10/18 at 09:00 OBDULIO ALEXANDRE NP Aug 10, 2018 19:51
[2018-08-10 20:06] VITALS: BP 116/54; PULSE 74; RESP 16
[2018-08-11 02:27] VITALS: BP 111/55; PULSE 68; RESP 16
[2018-08-11] MEDS: CEFAZOLIN 1 GM/50 ML (PMX) 50 ML IVPB SCH ×3 (06:28→22:33)
[2018-08-11] MEDS: LEVOTHYROXINE 25 MCG TAB PO SCH (06:28)
[2018-08-11] MEDS: NS + KCL 20 MEQ 1,000 ML IV SCH ×2 (06:29→22:34)
[2018-08-11 08:11] VITALS: BP 138/70; PULSE 64; RESP 15
[2018-08-11] MEDS: TIMOLOL 0.5% 5 ML OPH RIGHT EYE SCH ×2 (08:41→21:17)
[2018-08-11] MEDS: ACYCLOVIR 500 MG in SOD CHLORIDE 0.9% 100 ML IVPB SCH ×2 (08:41→21:17)
[2018-08-11] MEDS: LEVETIRACETAM 500 MG TAB PO SCH ×2 (08:41→21:17)
[2018-08-11] MEDS: DAKINS 0.0125%(1/40) 473 ML SOLUTION TP SCH ×2 (08:42→21:17)
--- NOTE | 2018-08-11 13:32 | CONS ---
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 Ferreira via [employer] messaging. Consultation Date/Type/Reason Admit Date/Time Aug 04, 2018 at 16:49 Initial Consult Date 08/05/18 Type of Consult ID Requesting Provider: JOSÉ PEREZ Date/Time of Note DATE: 08/11/18 TIME: 13:31 24 HR Interval Summary Free Text/Dictation Remains afebrile, wbc 7.7. Had diarrhea yesterday which has apparently resolved today, now having formed stools. A stool for cdiff was sent yesterday but b/c it was already becoming formed the lab rejected the sample. Per patient's daughter today, he had given her mom prune juice in am yesterday d/t patient had been constipated and the patient then had the multiple stools. Per the daughter, patient has had a hernia which has never exhibited as painful before, but that since yesterday the patient has been c/o soreness/pain 07/11. Detailed Summary Eyes: no complaints ENT: no complaints Respiratory: no complaints; No cough, No shortness of breath, No sputum, No wheezing Cardiovascular: no complaints; No chest pain, No palpitations Gastrointestinal: passing stool (formed today), other (umbilical hernia pain/discomfort ); No decreased appetite, No diarrhea, No nausea, No vomiting Genitourinary: no complaints; No dysuria Musculoskeletal: other (sacral inscisionl pain with exertion) Neurologic: no complaints Endocrine: no complaints Lymphatic: no complaints Exam/Review of Systems Exam Vitals Vital Signs Date Temp Pulse Resp B/P (MAP) Pulse Ox O2 O2 Flow FiO2 Time Delivery Rate 08/11/18 98.3 64 15 138/70 96 08:11 (92) 08/10/18 Room Air 14:00 08/08/18 8.0 14:33 Allergies Coded Allergies No Known Allergy (Unverified08/04/18) Intake and Output 08/10/18 08/10/18 08/11/18 1515:00 23:00 07:00 IntakeIntake Total 630 ml 300 ml 1000 ml BalanceBalance 630 ml 300 ml 1000 ml Exam Constitutional: alert, oriented, well developed, other (sitting up in a chair eating lunch with daughter at bedside.) Psych: nl mood/affect Head: normocephalic, atraumatic Eyes: nl lids, nl sclera, other (wearing glasses) ENMT: nl external ears & nose, nl nasal mucosa & septum, mucosa pink and moist (improving tongue surface) Neck: supple, non-tender (no swelling) Respiratory: clear to auscultation, normal air movement; No labored breathing, No wheezing Cardiovascular: regular rate and rhythm, nl pulses Gastrointestinal: soft, non-tender, bowel sounds (normoactive), other (rounded, umbilical hernia with mild TTP noted) Musculoskeletal: nl extremities to inspection; No swelling Extremities: normal pulses; No edema Neurological: METAL BURRER II-XII intact, nl mental status, nl speech (trinidadian sp eaking), nl strength Skin: nl turgor, other (reviewed nsg notes/pics, pt sitting in chair currently eating, unable to visualize sacral wound) Results Result Diagram: 08/11/1817 08/11/1817 Results 24hrs Laboratory Tests Test 08/11/18 05:17 White Blood Count 7.7 # Red Blood Count 4.10 L Hemoglobin 11.7 L Hematocrit 36.8 L Mean Corpuscular Volume 89.8 Mean Corpuscular Hemoglobin 28.5 L Mean Corpuscular Hemoglobin Concent 31.8 L Red Cell Distribution Width 14.9 H Platelet Count 261 Mean Platelet Volume 10.2 Immature Granulocytes % 0.700 H Neutrophils % 41.4 Lymphocytes % 45.6 Monocytes % 7.9 Eosinophils % 3.5 Basophils % 0.9 Nucleated Red Blood Cells % 0.0 Immature Granulocytes # 0.050 H Neutrophils # 3.2 Lymphocytes # 3.5 H Monocytes # 0.6 Eosinophils # 0.3 Basophils # 0.1 Nucleated Red Blood Cells # 0.0 Sodium Level 143 Potassium Level 4.6 Chloride Level 109 Carbon Dioxide Level 29 Anion Gap 5 Blood Urea Nitrogen 14 Creatinine 0.72 Est Glomerular Filtrat Rate mL/min Glucose Level 96 Calcium Level 8.7 Medications Medication Current Medications Acetaminophen (Tylenol Tab) 650 mg Q6H PRN PO MILD PAIN(1-3)OR ELEVATED TEMP Last administered on 08/07/18 20:02; Admin Dose 650 MG; Start 08/04/18 at 20:00 Acetaminophen/ Hydrocodone Bitart ([place] (5/325)) 1 tab Q6H PRN PO MODERATE PAIN LEVEL 4-6; Start 08/04/18 at 20:00 Levetiracetam (Keppra) 500 mg BID PO Last administered on 08/11/18 08:41; Admin Dose 500 MG; Start 08/04/18 at 23:30 Levothyroxine Sodium (Synthroid) 25 mcg BEFORE BREAKFAST PO Last administered on 08/11/18 06:28; Admin Dose 25 MCG; Start 08/05/18 at 07:00 Timolol Maleate (Timoptic 0.5%) 1 drop BID RIGHT EYE Last administered on 08/11/18 08:41; Admin Dose 1 DROP; Start 08/04/18 at 23:30 Potassium Chloride/Sodium Chloride 1,000 ml @ 70 mls/hr [id number] IV Last administered on 08/11/18 06:29; Admin Dose 70 MLS/HR; Start 08/05/18 at 09:30 Acyclovir 500 mg/ Sodium Chloride 100 ml @ 100 mls/hr Q12 IVPB Last administered on 08/11/18 08:41; Admin Dose 100 MLS/HR; Start 08/05/18 at 17:30 Cefazolin Sodium 50 ml @ 100 mls/hr Q8 IVPB Last administered on 08/11/18at 06:28; Admin Dose 100 MLS/HR; Start 08/06/18 at 15:30 Sodium Hypochlorite (Dakins Diluted ()) 1 applic BID TP Last administered on 08/11/18at 08:42; Admin Dose 1 APPLIC; Start 08/10/18 at 09:00 BRANDON SCHMITZ NP Aug 11, 2018 13:32
--- NOTE | 2018-08-11 15:11 | EN ---
Date/Time of Note Date/Time of Note DATE: 08/11/18 TIME: 15:11 Event Note Medicine Medicine Event Note I personally examined the patient today and directed care to DIESEL POWER MECH[employer]IC. DOMINICK MORENO MD Aug 11, 2018 15:11
[2018-08-11 15:15] VITALS: BP 122/61; PULSE 67; RESP 16
--- NOTE | 2018-08-11 16:11 | PN ---
DATE: 08/11/2018 Status post incision and drainage of the abscess, sacrococcygeal area. Status post resection of a ma ss lesion from sacrococcygeal skin area about 10 days ago. The pathologies proved to be herpes simpl ex wound lesion. The patient has responded to antibiotics, which has grown Staphylococcus aureus. T he wound is being treated with wet-to-dry with Dakin solution b.i.d. OBJECTIVE: GENERAL: Awake, oriented, oriented. VITAL SIGNS: Stable. Temperature at the most 98.5, heart rate 68, respirations 16, blood pressure 1 11/55, saturation 94%. LABORATORY DATA: WBC today 7700 with 41% segmented, hemoglobin 11.7. Chemistry: Sodium, potassium, BUN, creatinine within normal limits. HEART: Regular. LUNGS: Clear. Dressing changed. Wound actually is very clean. Granulation tissue has started appearing on the sac rococcygeal fascia area, so the patient needs daily dressing with Dakin solution wet to dry b.i.d. in the hospital, and once at least once at home when she goes home. The patient can be discharged davie e from a surgical point of view if it is okay with infectious disease, and then, if needed, they can write prescription for p.o. pain medication at home. The patient to be followed by me in Dr. Mayer' clinic. Dictated By: CHIP ENRIQUE MD PS/NTS Conf#: [id number] DID#: [id number] CC: YULISA BEAN MD;*EndCC*
--- NOTE | 2018-08-11 17:53 | PN ---
Date/Time of Note Date/Time of Note DATE: 08/11/18 TIME: 17:52 Assessment/Plan VTE Prophylaxis Risk score (from [facility])>0 risk: 5 SCD applied (from [facility]): Yes Pharmacological prophylaxis: LMWH Lines/Catheters IV [facility]ter [facility] (from [facility]): Peripheral IV Urinary Cath still in place: No Assessment/Plan Hospital Course Patient remains hemodynamically stable, afebrile continued on antibiotic for postop wound infection, continue current dressing changes per general surgery recommendations. Assessment/Plan - Lower back mass, status post resection. Dr Noriega is following in surgical consultation. - Postop wound infection with possible abscess. Continue antibiotics per ID. Dr. Ferreira is following patient in infection disease consultation. - Hypothyroidism. Continue Synthroid. - Seizure disorder. Continue Keppra. - Glaucoma. Continue timolol. - Left frontoparietal meningioma, status post resection. - Right lower extremities weakness secondary to meningioma. Further recommendations based on clinical course. Plan of care discussed with Dr. Singh. Result Diagram: 08/11/1851608/11/1817 Results 24hrs Laboratory Tests Test 08/11/18 05:17 White Blood Count 7.7 # Red Blood Count 4.10 L Hemoglobin 11.7 L Hematocrit 36.8 L Mean Corpuscular Volume 89.8 Mean Corpuscular Hemoglobin 28.5 L Mean Corpuscular Hemoglobin Concent 31.8 L Red Cell Distribution Width 14.9 H Platelet Count 261 Mean Platelet Volume 10.2 Immature Granulocytes % 0.700 H Neutrophils % 41.4 Lymphocytes % 45.6 Monocytes % 7.9 Eosinophils % 3.5 Basophils % 0.9 Nucleated Red Blood Cells % 0.0 Immature Granulocytes # 0.050 H Neutrophils # 3.2 Lymphocytes # 3.5 H Monocytes # 0.6 Eosinophils # 0.3 Basophils # 0.1 Nucleated Red Blood Cells # 0.0 Sodium Level 143 Potassium Level 4.6 Chloride Level 109 Carbon Dioxide Level 29 Anion Gap 5 Blood Urea Nitrogen 14 Creatinine 0.72 Est Glomerular Filtrat Rate mL/min Glucose Level 96 Calcium Level 8.7 Exam/Review of Systems Exam Vitals Vital Signs Date Temp Pulse Resp B/P (MAP) Pulse Ox O2 O2 Flow FiO2 Time Delivery Rate 08/11/18 98.2 67 16 122/61 95 15:15 (81) 08/10/18 Room Air 14:00 08/08/18 8.0 14:33 Intake and Output 08/10/18 08/10/18 08/11/18 1515:00 23:00 07:00 IntakeIntake Total 630 ml 300 ml 1000 ml BalanceBalance 630 ml 300 ml 1000 ml Exam Constitutional: alert, oriented Neck: supple Respiratory: clear to auscultation Cardiovascular: nl pulses Gastrointestinal: soft, non-tender Extremities: normal pulses Skin: other (left buttock surgical wound with drain) Results Results 24hrs Laboratory Tests Test 08/11/18 05:17 White Blood Count 7.7 # Red Blood Count 4.10 L Hemoglobin 11.7 L Hematocrit 36.8 L Mean Corpuscular Volume 89.8 Mean Corpuscular Hemoglobin 28.5 L Mean Corpuscular Hemoglobin Concent 31.8 L Red Cell Distribution Width 14.9 H Platelet Count 261 Mean Platelet Volume 10.2 Immature Granulocytes % 0.700 H Neutrophils % 41.4 Lymphocytes % 45.6 Monocytes % 7.9 Eosinophils % 3.5 Basophils % 0.9 Nucleated Red Blood Cells % 0.0 Immature Granulocytes # 0.050 H Neutrophils # 3.2 Lymphocytes # 3.5 H Monocytes # 0.6 Eosinophils # 0.3 Basophils # 0.1 Nucleated Red Blood Cells # 0.0 Sodium Level 143 Potassium Level 4.6 Chloride Level 109 Carbon Dioxide Level 29 Anion Gap 5 Blood Urea Nitrogen 14 Creatinine 0.72 Est Glomerular Filtrat Rate mL/min Glucose Level 96 Calcium Level 8.7 Medications Medication Current Medications Acetaminophen (Tylenol Tab) 650 mg Q6H PRN PO MILD PAIN(1-3)OR ELEVATED TEMP Last administered on 08/07/18at 20:02; Admin Dose 650 MG; Start 08/04/18 at 20:00 Acetaminophen/ Hydrocodone Bitart ([place] (5/325)) 1 tab Q6H PRN PO MODERATE PAIN LEVEL 4-6; Start 08/04/18 at 20:00 Levetiracetam (Keppra) 500 mg BID PO Last administered on 08/11/18at 08:41; Admin Dose 500 MG; Start 08/04/18 at 23:30 Levothyroxine Sodium (Synthroid) 25 mcg BEFORE BREAKFAST PO Last administered on 08/11/18at 06:28; Admin Dose 25 MCG; Start 08/05/18 at 07:00 Timolol Maleate (Timoptic 0.5%) 1 drop BID RIGHT EYE Last administered on 08/11/18 08:41; Admin Dose 1 DROP; Start 08/04/18 at 23:30 Potassium Chloride/Sodium Chloride 1,000 ml @ 70 mls/hr [id number] IV Last administered on 08/11/18 06:29; Admin Dose 70 MLS/HR; Start 08/05/18 at 09:30 Acyclovir 500 mg/ Sodium Chloride 100 ml @ 100 mls/hr Q12 IVPB Last admin istered on 08/11/18 08:41; Admin Dose 100 MLS/HR; Start 08/05/18 at 17:30 Cefazolin Sodium 50 ml @ 100 mls/hr Q8 IVPB Last administered on 08/11/18 15:13; Admin Dose 100 MLS/HR; Start 08/06/18 at 15:30 Sodium Hypochlorite (Dakins Diluted (1/40)) 1 applic BID TP Last administered on 08/11/18 08:42; Admin Dose 1 APPLIC; Start 08/10/18 at 09:00 JOSÉ PEREZ Aug 11, 2018 17:53
[2018-08-11 20:03] VITALS: BP 122/58; PULSE 72; RESP 16
[2018-08-12 01:07] VITALS: BP 119/59; PULSE 65; RESP 17
[2018-08-12] MEDS: LEVOTHYROXINE 25 MCG TAB PO SCH (06:09)
[2018-08-12] MEDS: CEFAZOLIN 1 GM/50 ML (PMX) 50 ML IVPB SCH ×3 (06:09→21:40)
[2018-08-12 07:39] VITALS: BP 117/54; PULSE 68; RESP 18
[2018-08-12] MEDS: TIMOLOL 0.5% 5 ML OPH RIGHT EYE SCH ×2 (08:12→20:17)
[2018-08-12] MEDS: LEVETIRACETAM 500 MG TAB PO SCH ×2 (08:12→20:17)
[2018-08-12] MEDS: ACYCLOVIR 500 MG in SOD CHLORIDE 0.9% 100 ML IVPB SCH ×2 (08:12→20:18)
--- NOTE | 2018-08-12 12:34 | CONS ---
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 - Continue local wound care Management d/w patient and her daughter at bedside, and with Dr. Ferreira via [employer] messaging. Total time spent 65 min. Consultation Date/Type/Reason Admit Date/Time Aug 04, 2018 at 16:49 Initial Consult Date 08/05/18 Type of Consult ID Requesting Provider: JOSÉ PEERZ Date/Time of Note DATE: 08/12/18 TIME: 12:34 24 HR Interval Summary Free Text/Dictation There is d/c planning in process now. Pt remains afebrile, no new labs today. Reported a loose stool after breakfast this am. Still reports discomfort at umbilical hernia site - she states with palpation. Exam/Review of Systems Exam Vitals Vital Signs Date Temp Pulse Resp B/P (MAP) Pulse Ox O2 O2 Flow FiO2 Time Delivery Rate 08/12/18 98.3 68 18 117/54 95 Room Air 07:39 (75) 08/08/18 8.0 14:33 Allergies Coded Allergies No Known Allergy (Unverified08/04/18) Intake and Output 08/11/18 08/11/18 08/12/18 1515:00 23:00 07:00 IntakeIntake Total 1210 ml 1730 ml 660 ml BalanceBalance 1210 ml 1730 ml 660 ml Exam Constitutional: alert, oriented, well developed, other (sitting up in a chair preparing to eat lunch with daughter at bedside assisting setup.) Psych: nl mood/affect Head: normocephalic, atraumatic Eyes: nl lids, nl sclera, other (wearing glasses) ENMT: nl external ears & nose, nl nasal mucosa & septum, mucosa pink and moist (improving tongue surface) Neck: supple, non-tender (no swelling) Respiratory: clear to auscultation, normal air movement; No labored breathing, No wheezing Cardiovascular: regular rate and rhythm, nl pulses Gastrointestinal: soft, non-tender, bowel sounds (normoactive), other (rounded, umbilical hernia with mild TTP noted) Musculoskeletal: nl extremities to inspection; No swelling Extremities: normal pulses; No edema Neurological: EXHAUST TENDER II-XII intact, nl mental status, nl speech (djiboutian speaking), nl strength Skin: nl turgor, other (reviewed nsg notes/pics - returned to patient's room at 1500 to visually assess wound now that patient is back in bed after finishing lunch. Site soft, without induration, minimal erythema, was packed with minimal serous drainage on the dressing, no odor. - informed RN dressing needs to be replaced) Results Result Diagram: 08/11/1851608/11/18516 Medications Medication Current Medications Acetaminophen (Tylenol Tab) 650 mg Q6H PRN PO MILD PAIN(1-3)OR ELEVATED TEMP Last administered on 08/07/18at 20:02; Admin Dose 650 MG; Start 08/04/18 at 20:00 Acetaminophen/ Hydrocodone Bitart ([place] (5/325)) 1 tab Q6H PRN PO MODERATE PAIN LEVEL 4-6; Start 08/04/18 at 20:00 Levetiracetam (Keppra) 500 mg BID PO Last administered on 08/12/18at 08:12; Admin Dose 500 MG; Start 08/04/18 at 23:30 Levothyroxine Sodium (Synthroid) 25 mcg BEFORE BREAKFAST PO Last administered on 08/12/18at 06:09; Admin Dose 25 MCG; Start 08/05/18 at 07:00 Timolol Maleate (Timoptic 0.5%) 1 drop BID RIGHT EYE Last administered on 01/20at 08:12; Admin Dose 1 DROP; Start 08/04/18 at 23:30 Potassium Chloride/Sodium Chloride 1,000 ml @ 70 mls/hr [id number] IV Last administered on 08/11/18at 22:34; Admin Dose 70 MLS/HR; Start 08/05/18 at 09:30 Acyclovir 500 mg/ Sodium Chloride 100 ml @ 100 mls/hr Q12 IVPB Last administered on 08/12/18 08:12; Admin Dose 100 MLS/HR; Start 08/05/18 at 17:30 Cefazolin Sodium 50 ml @ 100 mls/hr Q8 IVPB Last administered on 08/12/18at 06:09; Admin Dose 100 MLS/HR; Start 08/06/18 at 15:30 Sodium Hypochlorite (Dakins Diluted (/40)) 1 applic BID TP Last administered on 08/11/18at 21:17; Admin Dose 1 APPLIC; Start 08/10/18 at 09:00 BRANDON SCHMITZ NP Aug 12, 2018 12:34
[2018-08-12] MEDS: NS + KCL 20 MEQ 1,000 ML IV SCH ×2 (13:06→16:31)
[2018-08-12] MEDS: DAKINS 0.0125%(1/40) 473 ML SOLUTION TP SCH ×2 (13:31→20:07)
[2018-08-12 13:56] VITALS: BP 129/60; PULSE 68; RESP 16
--- NOTE | 2018-08-12 15:33 | PN ---
DATE: 08/12/2018 Status post incision and drainage of sacrococcygeal wound infection. SUBJECTIVE: Feels much better. Minimal pain in the lower back, but occasionally has been complainin g of pain around the umbilicus where she is known to have a hernia which is a kind of either incision al hernia at the superior corner of the previous incision for ovarian tumor and hysterectomy or could be a separate midline ventral periumbilical hernia. OBJECTIVE: GENERAL: Alert, awake, oriented. VITAL SIGNS: Temperature 98.3, heart rate 68, respiration 18, blood pressure 107/54, saturation 95%. . HEART: Regular. LUNGS: Clear. ABDOMEN: Soft. Above the umbilicus about 2 or 3 cm slightly to the left, there is a ventral hernia. I am not sure if this is secondary to previous incision for hysterectomy or this is a new ventral h ernia, there is no incarceration over there or whatever is popping out, probably a piece of omentum o r even a loop of bowel, it easily goes in, minimal tenderness. Maybe there is very small hernia also in the center of the umbilicus. LABORATORY: No labs have been done today. PLAN: Continue current care for IV acyclovir and IV cefazolin as has been planned by infectious dise ase. Also, continue local care of the wound with wet to dry dressing with Dakin solution b.i.d. as l jose as the patient is in the hospital. From a surgical point of view, the patient can be discharged home today whenever okay with infectious disease and internal medicine, so that if she has to get ant ibiotics, she can continue to take antibiotics at home. Also, I have told the nurse, Mirian, to notif y the case management social worker to work on the planning for home health to see the patient at home once a day and do the wet to dry dressing on the wound on the sacrococcygeal area. Patient to be followed by myself in Dr. Mayer' clinic this coming , that is 2 days from now if she gets discharged today or n ext , 08/21/2018 if the patient is discharged on Saturday or . Dictated By: CHIP ENRIQUE MD PS/NTS Conf#: [id number] DID#: [id number]
--- NOTE | 2018-08-12 17:23 | PN ---
Date/Time of Note Date/Time of Note DATE: 08/12/18 TIME: 17:23 Assessment/Plan VTE Prophylaxis Risk score (from Ns)>0 risk: 4 SCD applied (from Ns): Yes Pharmacological prophylaxis: NA/contraindicated Pharm contraindication: surgical contra Lines/Catheters IV Catheter Type (from Nrsg): Peripheral IV Urinary Cath still in place: No Assessment/Plan Hospital Course No acute events overnight, patient pain is adequately controlled, continue current wound care, continue antibiotics. Assessment/Plan - Lower back mass, status post resection. Dr Noriega is following in surgical consultation. - Postop wound infection with possible abscess. Continue antibiotics per ID. Dr. Ferreira is following patient in infection disease consultation. - Hypothyroidism. Continue Synthroid. - Seizure disorder. Continue Keppra. - Glaucoma. Continue timolol. - Left frontoparietal meningioma, status post resection. - Right lower extremities weakness secondary to meningioma. Further recommendations based on clinical course. Plan of care discussed with Dr. Singh. Result Diagram: 08/11/1851608/11/18516 Exam/Review of Systems Exam Vitals Vital Signs Date Temp Pulse Resp B/P (MAP) Pulse Ox O2 O2 Flow FiO2 Time Delivery Rate 08/12/18 98.0 68 16 129/60 93 Room Air 13:56 (83) 08/08/18 8.0 14:33 Intake and Output 08/11/18 08/11/18 08/12/18 1515:00 23:00 07:00 IntakeIntake Total 1210 ml 1730 ml 660 ml BalanceBalance 1210 ml 1730 ml 660 ml Exam Constitutional: alert, oriented Neck: supple Respiratory: clear to auscultation Cardiovascular: nl pulses Gastrointestinal: soft, non-tender Extremities: normal pulses Skin: other (left buttock surgical wound with drain) Medications Medication Current Medications Acetaminophen (Tylenol Tab) 650 mg Q6H PRN PO MILD PAIN(1-3)OR ELEVATED TEMP Last administered on 08/07/18at 20:02; Admin Dose 650 MG; Start 08/04/18 at 20:00 Acetaminophen/ Hydrocodone Bitart ([place] (5/325)) 1 tab Q6H PRN PO MODERATE PAIN LEVEL 4-6; Start 08/04/18 at 20:00 Levetiracetam (Keppra) 500 mg BID PO Last administered on 08/12/18 08:12; Admin Dose 500 MG; Start 08/04/18 at 23:30 Levothyroxine Sodium (Synthroid) 25 mcg BEFORE BREAKFAST PO Last administered on 08/12/18 06:09; Admin Dose 25 MCG; Start 08/05/18 at 07:00 Timolol Maleate (Timoptic 0.5%) 1 drop BID RIGHT EYE Last administered on 08/12/18 08:12; Admin Dose 1 DROP; Start 08/04/18 at 23:30 Potassium Chloride/Sodium Chloride 1,000 ml @ 70 mls/hr [id number] IV Last administered on 08/12/18 16:31; Admin Dose 70 MLS/HR; Start 08/05/18 at 09:30 Acyclovir 500 mg/ Sodium Chloride 100 ml @ 100 mls/hr Q12 IVPB Last administered on 08/12/18 08:12; Admin Dose 100 MLS/HR; Start 08/05/18 at 17:30; Stop 08/06/19 at 18:30 Cefazolin Sodium 50 ml @ 100 mls/hr Q8 IVPB Last administered on 08/12/18 13:30; Admin Dose 100 MLS/HR; Start 08/06/18 at 15:30 Sodium Hypochlorite (Dakins Diluted ()) 1 applic BID TP Last administered on 08/12/18 13:31; Admin Dose 1 APPLIC; Start 08/10/18 at 09:00 JOSÉ PEREZ Aug 12, 2018 17:23
[2018-08-12 20:48] VITALS: BP 116/57; PULSE 72; RESP 18
[2018-08-13 01:56] VITALS: BP 115/56; PULSE 68; RESP 16
[2018-08-13] MEDS: CEFAZOLIN 1 GM/50 ML (PMX) 50 ML IVPB SCH ×2 (05:59→13:01)
[2018-08-13] MEDS: LEVOTHYROXINE 25 MCG TAB PO SCH (06:00)
[2018-08-13 07:55] VITALS: BP 132/59; PULSE 65; RESP 18
[2018-08-13] MEDS: LEVETIRACETAM 500 MG TAB PO SCH (08:12)
[2018-08-13] MEDS: DAKINS 0.0125%(1/40) 473 ML SOLUTION TP SCH (08:12)
[2018-08-13] MEDS: TIMOLOL 0.5% 5 ML OPH RIGHT EYE SCH (08:12)
--- NOTE | 2018-08-13 08:49 | CONS ---
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 - continued close id f/u especially in ligh of recent xray findings - Continue local wound care I directed care to CEO AND PRESIDENT via [employer] messaging yesterday. Consultation Date/Type/Reason Admit Date/Time Aug 04, 2018 at 16:49 Initial Consult Date 08/05/18 Type of Consult ID Requesting Provider: JOSÉ PEREZ Date/Time of Note DATE: 08/13/18 TIME: 08:47 Exam/Review of Systems Exam Vitals Vital Signs Date Temp Pulse Resp B/P (MAP) Pulse Ox O2 O2 Flow FiO2 Time Delivery Rate 08/13/18 98.1 65 18 132/59 99 Room Air 07:55 (83) Intake and Output 08/12/18 08/12/18 08/13/18 1515:00 23:00 07:00 IntakeIntake Total 720 ml 950 ml 590 ml BalanceBalance 720 ml 950 ml 590 ml Results Result Diagram: 08/11/1851608/11/18516 Medications Medication Current Medications Acetaminophen (Tylenol Tab) 650 mg Q6H PRN PO MILD PAIN(1-3)OR ELEVATED TEMP Last administered on 08/07/18 20:02; Admin Dose 650 MG; Start 08/04/18 at 20:00 Acetaminophen/ Hydrocodone Bitart ([place] (5/325)) 1 tab Q6H PRN PO MODERATE PAIN LEVEL 4-6; Start 08/04/18 at 20:00 Levetiracetam (Keppra) 500 mg BID PO Last administered on 08/13/18 08:12; Admin Dose 500 MG; Start 08/04/18 at 23:30 Levothyroxine Sodium (Synthroid) 25 mcg BEFORE BREAKFAST PO Last administered on 08/13/18 06:00; Admin Dose 25 MCG; Start 08/05/18 at 07:00 Timolol Maleate (Timoptic 0.5%) 1 drop BID RIGHT EYE Last administered on 08/13/18 08:12; Admin Dose 1 DROP; Start 08/04/18 at 23:30 Potassium Chloride/Sodium Chloride 1,000 ml @ 70 mls/hr [id number] IV Last administered on 08/12/18 16:31; Admin Dose 70 MLS/HR; Start 08/05/18 at 09:30 Cefazolin Sodium 50 ml @ 100 mls/hr Q8 IVPB Last administered on 08/13/18 05:59; Admin Dose 100 MLS/HR; Start 08/06/18 at 15:30 Sodium Hypochlorite (Dakins Diluted (40)) 1 applic BID TP Last administered on 08/13/18 08:12; Admin Dose 1 APPLIC; Start 08/10/18 at 09:00 DOMINICK MORENO MD Aug 13, 2018 08:48
[2018-08-13] MEDS ORDERED: CEPH250S33 PO (10:35)
[2018-08-13] MEDS ORDERED: CEPH500C PO ×2 (10:40→20:40)
--- NOTE | 2018-08-13 13:28 | PN ---
DATE: 08/13/2018 SUBJECTIVE: Feels good. No pain in the lower back. OBJECTIVE: GENERAL: Awake, alert, oriented. VITAL SIGNS: Stable. No fever. HEART: Regular. LUNGS: Clear. ABDOMEN: Soft. SKIN: Lower back wound inspected is clean. Granulation tissue is forming gradually. No cellulitis, no necrotic tissue. ASSESSMENT AND PLAN: An 88-year-old female who had a mass lesion from lower back excised about 2 wee ks ago and postop, she developed a cellulitis and abscess formation, so required the patient to be ad mitted and was started on antibiotic. Culture revealed Staph aureus and also pathology was suspiciou s and sent out and revealed to be herpes simplex lesion. The patient was started also on acyclovir, course was received by the patient and was administered by the infectious disease and stopped today. The patient can be discharged today from general surgical perspective and of infectious disease's pe rspective. The wound has to be locally treated with wet-to-dry dressing with Dakin's solution. Home arrangements with home health have been made and the patient is to be discharged today with 4 more d ays of antibiotic, Keflex 500 mg p.o. q.6 hours, totally 16 capsules. The patient is to be followed by me and Dr. Mayer' clinic on , 08/29/2018. Dictated By: CHIP ENRIQUE MD PS/NTS Conf#: [id number] DID#: [id number] CC: YULISA BEAN MD;*EndCC*
[2018-08-13 14:33] VITALS: BP 118/56; PULSE 69; RESP 18
--- NOTE | 2018-08-13 20:40 | DS ---
Date/Time of Note Date/Time of Note DATE: 08/13/18 TIME: 20:37 Discharge Summary Admission/Discharge Info Admit Date/Time Aug 04, 2018 at 16:49 Discharge Date/Time Aug 13, 2018 at 14:40 Patient Condition: Stable Hx of Present Illness History was obtained from the patient's old chart and discussion with ER physician, patient's family as well as discussion with Dr. Noriega, who recently performed surgery on her. The patient is an 88-year-old female well known to me from previous admission. The patient has hypothyroidism, seizure disorder, history of left frontoparietal meningioma status post resection. The patient was seen by Dr. Noriega as an outpatient for lower back mass. The patient underwent wide excision of the mass with the primary repair and placement of Aftab-Klein pain on 07/30/2018. The surgery was done under general anesthesia. The patient was discharged home. 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 No definite malignancy. Herpes simplex using immunohistochemical stain method will be performed to verify possibility of viral cytopathic effect. Results are still pending. 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 Waller at that time. The patient went to see Dr. Noriega today for postop evaluation and was noted to be afebrile. The patient was sent to ER where she was again noted to have temperature of 100.7. The patient also had white count of 16.2 and JUAN drain was more pink and cloudy. The patient reported that she has been having fever since yesterday, for which she took Tylenol including postoperative pain. The patient did not have any nausea, vomiting. No reported chest pain. No shortness of breath, no reported abdominal pain, no reported recent seizure. No reported leg edema. No reported numbness, tingling or weakness in any extremities. No reported headache. Hospital Course - Lower back mass, status post resection. Dr Noriega is following in surgical consultation. - Postop wound infection with possible abscess. Continue antibiotics per ID. Dr. Ferreira is following patient in infection disease consultation. - Hypothyroidism. Continue Synthroid. - Seizure disorder. Continue Keppra. - Glaucoma. Continue timolol. - Left frontoparietal meningioma, status post resection. - Right lower extremities weakness secondary to meningioma. Plan of care discussed with Dr. Singh. Home Meds Active Scripts Cephalexin* (Cephalexin*) 500 Mg Capsule, 500 MG PO Q8 for 4 Days, CAP Prov:JOSÉ PEREZ 08/13/18 Reported Medications Timolol Maleate* (Timoptic*) 0.5%-5ml Opht, 1 DROP RIGHT EYE BID, #1 EA 07/30/18 Levothyroxine Sodium* (Levoxyl*) 25 Mcg Tablet, 25 MCG PO BEFORE BREAKFAST, #30 TAB 07/30/18 Levetiracetam* (Levetiracetam*) 500 Mg Tablet, 500 MG PO BID, TAB 07/30/18 Follow-up Plan D/c home after home health for wound care is arranged, pt to f/up with Dr Noriega in 1 week. Primary Care Provider Not On Staff Doctor Time spent on discharge: > 30 minutes JOSÉ PEREZ Aug 13, 2018 20:40
== END 2018-08-13 14:40 | disposition home health service (06) | DRG 857 ==
LOC: E/R 14:57 → 2NE 16:43 → OBSVTOIN 16:49
PROVIDERS: ADMIT Internal Medicine; ATTEND Internal Medicine
PROC: 0J970ZZ Drainage of Back Subcutaneous Tissue and Fascia, Open Approach (ICD-10-PCS; principal; 2018-08-08 13:00)
DX: T81.41XA Infection following a procedure, superficial incisional surgical site, initial encounter (principal); L03.312 Cellulitis of back [any part except buttock and flank]; G40.909 Epilepsy, unspecified, not intractable, without status epilepticus; H40.9 Unspecified glaucoma; L98.419 Non-pressure chronic ulcer of buttock with unspecified severity; B00.9 Herpesviral infection, unspecified; E89.0 Postprocedural hypothyroidism; B95.61 Methicillin susceptible Staphylococcus aureus infection as the cause of diseases classified elsewhere; M62.81 Muscle weakness (generalized); R19.7 Diarrhea, unspecified
CPT/HCPCS: 36415; 71045; 72196; 80048; 80053; 81003; 83605; 84484; 85025; 85610; 85730; 87070; 87075; 87086; 87102; 93005; 96374; G0378; J0133; J0690; J1100; J2405; J2543; J2765; J3010; J3370; J3480; J7030